=== PATIENT | male | born 1950 | race Caucasian/White ===

== ENCOUNTER 2019-07-11 14:27 | Emergency (ER) | payer MEDICARE, SELFPAY ==
--- NOTE | 2019-07-11 14:52 | ED.SKABFB ---
HPI - Skin/Abscess/Foreign Bdy General Chief complaint: Skin/Abscess/Foreign Body Stated complaint: Body Rash Time Seen by Provider: 07/11/19 15:04 Source: patient and RN notes reviewed Mode of arrival: ambulatory Limitations: no limitations History of Present Illness HPI narrative: 69-year-old male presents with concern for rash. He reports 3-week history of rash on his bilateral lower arms and shoulder area. Reports that the rash has worsened and is very itchy and stinging. He reports using an [id number] cream recommended by a pharmacist, which caused his rash to burn. He denies difficulty swallowing, breathing. Denies any known precipitating factors. Denies any history of similar rashes MD complaint: rash Related Data Allergies Allergy/AdvReac Type Severity Reaction Status Date / Time No Known Allergies Allergy Verified 07/11/19 14:56 Review of Systems Review of Systems: Narrative: CONSTITUTIONAL: Denies malaise, chills, sweats, or fever. ENT: Denies sore throat, drooling, swollen tongue, swollen lips. CARDIOVASCULAR: Denies chest pain, palpitations RESPIRATORY: Denies dyspnea. GASTROINTESTINAL: Denies abdominal pain, nausea, vomiting, diarrhea, SKIN: Reports itchy, burning rash on bilateral arms and upper back/shoulders MUSCULOSKELETAL: Denies myalgia. NEUROLOGIC: Denies headache. All systems reviewed & are unremarkable except as noted in HPI and below PMFSH Family History Family History (Updated 08/15/16 @ 23:56 by DOCTOR UNKNOWN) Father Family history of tuberculosis, Onset Age: 80 Patient's father is Sibling Family history of osteoarthritis Family history of chronic obstructive pulmonary disease Mother Patient's mother is Social History Social History Alcohol intake: current Comments At time of signature, agree with nursing past medical, surgical, social and family history. There is no relevant family history pertinent to the presenting complaint Exam Narrative: Exam Narrative: GENERAL: Well-appearing, well-nourished, and in no acute distress. HEAD: Normocephalic EYES: PERRLA, conjunctivae clear ENT: Nares clear, no rhinorrhea or epistaxis. Mucous membranes moist. Oropharynx without edema, erythema or lesions. NECK: Supple. CHEST: No respiratory distress. Clear to auscultation. No bony deformities, no asymmetry. Speaks in full sentences. HEART: Regular rate and rhythm. No murmur heard. Musculoskeletal: Grossly normal range of motion and strength in upper extremities SKIN: Warm, dry. Scaly raised plaque, mild edema, and erythema noted to entire dorsal surface of bilateral lower arms. Patches of erythematous scaly plaque with small scabbed areas noted to upper back/posterior shoulder area NEURO: Alert and oriented x3. PSYCH: Normal mood and affect Course Course Emergency Course: Patient is aware of diagnosis, understands and agrees to treatment plan. Anticipatory guidance given. Patient agrees to follow-up as directed and is aware of reasons to seek care at the emergency department. Portions of this record may have been created with voice recognition software Vital Signs Vital signs: Reviewed. Patient has current diagnosis of hypertension MDM - Skin/Abscess/Foreign Bdy MDM Narrative Medical decision making narrative: Does not appear at this time to be erythema multiforme, bullous, SJS, TEN; no evidence at this time to suggest RMSF, endocarditis or Lyme disease; patient looks well, nontoxic and is tolerating oral intake; no neurologic signs or symptoms; no headache, photophobia or neck pain; afebrile; appropriate for initial outpatient treatment; discussed the importance of follow-up, patient agrees; question, viral exanthema, contact dermatitis, allergic dermatitis, eczema, urticaria. No soft palate or uvula edema, no tongue, lip edema or other mucosal involvement, no respiratory compromise, no stridor, no wheezing, no wheezing, no history of s
[2019-07-11 14:57] VITALS: BP 135/75; PULSE 78; RESP 16; TEMP 36.3; O2SAT 99
== END 2019-07-11 15:17 | disposition home or self-care (01) ==
PROVIDERS: Emergency Provider Nurse Practitioner
DX: R21 Rash and other nonspecific skin eruption (principal)
CPT/HCPCS: 99213; G0463

== ENCOUNTER 2019-10-20 17:07 | Emergency (ER) | payer MEDICARE, SELFPAY ==
[2019-10-20 17:42] VITALS: BP 128/77; PULSE 85; RESP 18; TEMP 36.6; O2SAT 97
--- NOTE | 2019-10-20 18:16 | ED.GENADULT ---
HPI - General Adult General Chief complaint: Skin/Abscess/Foreign Body Stated complaint: rash Time Seen by Provider: 10/20/19 18:17 Source: patient and RN notes reviewed Mode of arrival: ambulatory Limitations: no limitations History of Present Illness HPI narrative: 69-year-old male presents with complaints of diffused raised, red, scaly, itching rash to anterior and posterior trunk, bilateral upper extremities, face, and neck with minor abrasions. Denies new changes in personal hygiene products or laundry detergent. No new foods or medications. No swelling, burning, bleeding, or drainage. Denies fever, chills, headaches, weakness, fatigue, myalgia, facial swelling, or tongue swelling. The patient reports he have not been diagnosed with COVID-19. The patient reports he is not waiting for the results of a COVID-19 lab test. The patient reports he do not have fever, chills, fatigue. The patient reports he do not have a new or worsening cough or shortness of breath. Denies chest pain. The patient reports he do not have any rhinorrhea, congestion, sore throat, nausea, vomiting, abdominal pain, and diarrhea. Tolerating po intake well. Denies recent traveling. Denies concerns for COVID-19 or exposures been home with limited outdoor exposure except for essential household needs, work, and return home. At this time, patient is not suspected of having COVID-19. Some parts of this dictation were generated by voice recognition software and may contain typographical and/or grammatical inaccuracies. Related Data Allergies Allergy/AdvReac Type Severity Reaction Status Date / Time No Known Allergies Allergy Verified 10/20/19 18:08 Review of Systems Review of Systems: Narrative: CONSTITUTIONAL: Denies fever, chills, sweats. EYES: Denies visual changes, redness, discharge. ENT: Denies rhinorrhea, congestion, sore throat, otalgia. CARDIOVASCULAR: Denies chest pain, palpitations, edema. RESPIRATORY: Denies dyspnea, wheezing, cough. GASTROINTESTINAL: Denies abdominal pain, nausea, vomiting, diarrhea. GENITOURINARY: Denies dysuria, hematuria, abnormal discharge. SKIN: Complains of diffused raised, red, scaly, itching rash to anterior and posterior trunk, bilateral upper extremities, face, and neck with minor abrasions. Denies drainage. MUSCULOSKELETAL: Denies acute back pain, joint pain, or myalgia. NEUROLOGIC: Denies numbness or focal weakness. PSYCHIATRIC: Denies anxiety or depression. All other systems reviewed & are unremarkable except as noted in HPI and below. FOR[facility]LY [facility] Past Medical History Medical History (Updated 10/21/19 @ 00:00 by Lavern Dumont) Hernia Hyperthyroidism Surgical History Surgical History (Updated 10/20/19 @ 18:31 by DENA Barlow) History of hernia surgery Family History Family History Father Family history of tuberculosis, Onset Age: 80 Patient's father is Sibling Family history of osteoarthritis Family history of chronic obstructive pulmonary disease Mother Patient's mother is Social History Social History (Updated 10/20/19 @ 18:32 by DENA Barlow) Smoking packs per day: 1 Smoking cigarettes per day: 20.0 Years smoked: 56 Smoking pack-years: 56.00 Smoking status: Current every day smoker Alcohol intake: current Substance use: never Living arrangements: with family Occupation/Education: retired Gender identity (if verbalized by the patient): Male Comments At time of signature, agree with nurse past medical, surgical, social, and family history. There is no relevant family history pertinent to the presenting complaint. Exam Narrative: Exam Narrative: GENERAL: This is a well-nourished, well-developed patient, in no apparent distress. Talking in full sentences without deficit and ambulate with steady gait without dyspnea. HEAD: normocephalic, atrau
== END 2019-10-20 18:40 | disposition home or self-care (01) ==
PROVIDERS: Emergency Provider Nurse Practitioner Family
DX: L20.9 Atopic dermatitis, unspecified (principal); E78.5 Hyperlipidemia, unspecified; F17.210 Nicotine dependence, cigarettes, uncomplicated
CPT/HCPCS: 99213; G0463

== ENCOUNTER 2019-11-10 13:54 | Emergency (ER) | payer MEDICARE, SELFPAY ==
[2019-11-10 14:11] VITALS: BP 95/67; PULSE 117; RESP 20; TEMP 38.5; O2SAT 98
--- NOTE | 2019-11-10 14:31 | ED.URI ---
HPI - URI/Sore Throat General Chief Complaint: Upper Respiratory Infection Stated Complaint: upper respiratory infection Time Seen by Provider: 11/10/19 14:31 Source: patient Mode of arrival: ambulatory Limitations: no limitations History of Present Illness HPI Narrative: Lenny Lopez is a 69 yo old PMH of hypothyroid who comes to express care with fever, abdominal pain and erythema and urinary hesitancy. In triage respiration are 30, fever 101.3. Also exhibits shortness of breath. illness started yesterday Patient has not seen a physician in a year last time was seen at the [facility] Related Data Home Medications Medication Instructions Recorded Confirmed No Home Medications 11/10/19 11/10/19 Allergies Allergy/AdvReac Type Severity Reaction Status Date / Time No Known Allergies Allergy Verified 10/20/19 18:08 Review of Systems Review of Systems: Narrative: CONSTITUTIONAL: Denies fever, chills, sweats. EYES: Denies visual changes, redness, discharge. ENT: Denies rhinorrhea, congestion, sore throat, otalgia. CARDIOVASCULAR: Denies chest pain, palpitations, edema. RESPIRATORY: Has dyspnea, no wheezing, has cough GASTROINTESTINAL: Has abdominal pain, nausea, vomiting, diarrhea. GENITOURINARY: Denies dysuria, hematuria, abnormal discharge complaining of urinary hesitancy SKIN: Denies rash or itching. NEUROLOGIC: Denies numbness, or focal weakness. PSYCHIATRIC: Denies anxiety or depression. PMFSH Family History Family History Father Family history of tuberculosis, Onset Age: 80 Patient's father is Sibling Family history of osteoarthritis Family history of chronic obstructive pulmonary disease Mother Patient's mother is Social History Social History Smoking packs per day: 1 Smoking cigarettes per day: 20.0 Years smoked: 56 Smoking pack-years: 56.00 Smoking status: Current every day smoker Alcohol intake: current Substance use: never Gender identity (if verbalized by the patient): Male Exam Narrative: Exam Narrative: GENERAL: This is a well-nourished, well-developed patient, in moderate distress. Patient's color is poor HEAD: normocephalic, atraumatic. EYES: Sclera clear/white. Vision is grossly intact. EARS: External ears normal, Hearing grossly intact. NOSE: External nose normal without nasal discharge, nares without redness, no rhinorrhea. THROAT: Mucous membranes moist, posterior pharynx erythema, no exudate NECK: Neck supple, non-tender CARDIOVASCULAR: Tachycardic rate and rhythm without murmurs, gallops, or rubs. RESPIRATORY: Diminished to auscultation. Rapid rate of 30 -breath/minute. sounds equal bilaterally. No wheezes, rales, or rhonchi. GASTROINTESTINAL: Abdomen tense with mild diffuse tenderness SKIN: warm, intact with no suspicious lesions or rash, good texture and turgor. NEURO: awake, alert, and oriented to person, place and time. There were no obvious focal neurologic abnormalities. Steady gait EXTREMITIES: Normal range of motion. BACK: Nontender without deformity Course Course Emergency Course: Patient's urine shows only trace leukocytes and protein-unable to check lab work or due bladder scan; due to fever, decreased blood pressure, abdominal pain the respiratory patient needs to be assessed in the emergency room, patient transfer. Call to ER provider regarding patient condition. Patient given Tylenol prior to leaving. NPO. otherwise Vital Signs Vital signs: Vital Signs Temperature 101.3 F H 11/10/19 14:11 Pulse Rate 117 H 11/10/19 14:11 Respiratory Rate 11/10/19 14:11 Blood Pressure 95/67 L 11/10/19 14:11 Pulse Oximetry 98 11/10/19 14:11 Temperature 101.3 F H 11/10/19 14:55 Pulse Rate 117 H 11/10/19 14:11 Respiratory Rate 20 11/10/19 14:11 Blood Pressure 95/67 L 11/10/19 14:11 Pulse Ox
[2019-11-10 14:55] VITALS: TEMP 38.5
[2019-11-10] MEDS: ACETAMINOPHEN 325 MG TABLET 650 MG PO (14:55)
== END 2019-11-10 14:59 | disposition short-term general hospital (02) ==
PROVIDERS: Emergency Provider Nurse Practitioner
DX: R06.82 Tachypnea, not elsewhere classified (principal); R50.81 Fever presenting with conditions classified elsewhere; F17.210 Nicotine dependence, cigarettes, uncomplicated; E03.9 Hypothyroidism, unspecified
CPT/HCPCS: 81003; 87081; 87880; 99213; A9270; G0463

== ENCOUNTER 2019-11-10 15:41 | Inpatient (IN) | payer MEDICARE, OTHER, SELFPAY ==
[2019-11-10] VITALS (9 sets, daily range): BP systolic 98–125; BP diastolic 64–78; PULSE 83–109; RESP 18–24; TEMP 36.6–36.9; O2SAT 96–100; BMI 25.4
--- NOTE | ~2019-11-10 | CT_ITS ---
EXAMINATION: CT abdomen pelvis w con INDICATION: Lower abdominal pain and fever TECHNIQUE: Computed tomographic images of the abdomen and pelvis were obtained after the administrati on of 100 cc of Omnipaque 350 intravenous contrast. The dose-length product (DLP) was 405.47 mGy-cm. Automated exposure control and iterative reconstruction technique were employed. COMPARISON: None available FINDINGS: There is atelectasis of the visualized lower lobes. The heart size is normal. Subendocardia l fat deposition in the interventricular septum and left ventricular apex is consistent with prior my ocardial infarction. The liver, spleen, pancreas, gallbladder, and adrenal glands are normal. The kid neys are unremarkable. There is calcified atherosclerosis of the aorta and many of the other arteries . No pathologically enlarged abdominal or pelvic lymph nodes are identified. There is wall thickening in the mid sigmoid colon with edematous stranding of the adjacent perisigmoid fat. Tiny foci of danilo cent extraluminal gas are also seen. There is an approximately 1.6 x 0.9 cm perisigmoid fluid collect ion without rim enhancement. There is moderate lumbar spondylosis. IMPRESSION: 1. Perforated sigmoid diverticulitis. Reviewed, dictated and finalized at location A.
--- NOTE | ~2019-11-10 | XR_ITS ---
EXAMINATION: XR chest 1V portable INDICATION: Shortness of breath, fever and cough TECHNIQUE: Portable AP chest at 1723 hours COMPARISON: None available FINDINGS: There is mild atelectasis of the lung bases. No pleural effusion or pneumothorax is identif ied. The cardiomediastinal silhouette is normal. IMPRESSION: 1. Mild atelectasis of the lung bases. Reviewed, dictated and finalized at location A.
--- NOTE | 2019-11-10 16:00 | ECG_ITS ---
Measurements Intervals [place] Rate: 106 P: 24 W[place]: 149 QRS: 21 QRSD: 102 T: 32 QT: 316 QTc: 421 Interpretive Statements SINUS TACHYCARDIA VENTRICULAR PREMATURE COMPLEX DELAYED PRECORDIAL R/S TRANSITION MINIMAL Q WAVES- INFERIOR LEADS BORDERLINE T WAVE ABNORMALITY- INF/LAT LEADS BASELINE WANDER- AVL, AVF, V6 ABNORMAL ECG Electronically Signed On 11-10-2019 16:17:39 CDT by Andres Campos D.O.
--- NOTE | 2019-11-10 17:10 | ED.SOB ---
HPI - SOB/Dyspnea General Chief Complaint: Shortness of Breath/Dyspnea Stated Complaint: fever, sob Time Seen by Provider: 11/10/19 17:00 History of Present Illness HPI Narrative: Patient presents with a family friend for fever cough and shortness of breath. Was at the urgent care and sent here. There he had a negative strep and a positive UA. All started this morning when he got up. Coughing up green phlegm. Temperature 101.3 at the urgent care. Also has lower abdominal pain 5 or 6 out of 10. Has no pain with urination, no constipation or diarrhea. He smokes cigarettes, drinks alcohol, does not do marijuana. 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 Related Data Home Medications Medication Instructions Recorded Confirmed loratadine mg 11/10/19 prednisone 11/10/19 Allergies Allergy/AdvReac Type Severity Reaction Status Date / Time No Known Allergies Allergy Verified 11/10/19 18:18 Review of Systems Review of Systems: Narrative: CONSTITUTIONAL: Denies fever, chills, or sweats. EYES: Denies visual changes, redness, or discharge. ENT: Denies rhinorrhea, congestion, sore throat, or otalgia. CARDIOVASCULAR: Denies chest pain, palpitations, or edema. RESPIRATORY: He has cough and dyspnea with sputum. GASTROINTESTINAL: He has abdominal pain, but not nausea, vomiting, or diarrhea. GENITOURINARY: Denies dysuria or hematuria. SKIN: Denies rash or itching. MUSCULOSKELETAL: Denies back pain, joint pain, or myalgia. NEUROLOGIC: Denies headache, numbness, or weakness. PSYCHIATRIC: Denies anxiety or depression. PMFSH Surgical History Surgical History History of hernia surgery Social History Social History Smoking packs per day: 1 Smoking cigarettes per day: 20.0 Years smoked: 56 Smoking pack-years: 56.00 Smoking status: Current every day smoker Alcohol intake: current Substance use: never Gender identity (if verbalized by the patient): Male Exam Narrative: Exam Narrative: GENERAL: Well-appearing, well-nourished, and in no acute distress. Hair unkempt. Quite pleasant. HEAD: Normocephalic, atraumatic. EYES: PERRLA and EOMI. ENT: Nares clear, no rhinorrhea or epistaxis. Mucous membranes moist. NECK: Supple. CHEST: Clear to auscultation. No respiratory distress. HEART: Regular rate and rhythm. No murmur heard. Normal peripheral pulses. ABDOMEN: Soft, nontender, nondistended, normal active bowel sounds. EXTREMITIES: Normal range of motion. No edema. SKIN: Warm, dry, no rash. NEURO: No focal deficits. Alert and oriented x3. PSYCH: Normal mood and affect. Course Reevaluation(s) Reevaluation #1: Went in to tell the patient and his friend about the ruptured diverticuli. He did not understand that he should stay in the hospital and that he cannot eat. Awaiting the surgeons call back. Date: 11/10/19 Time: 19:22 Consultations Consultation #1: Calling Dr. Ellison for a general surgery consult on the ruptured diverticuli. Date: 11/10/19 Time: 19:04 Vital Signs Vital signs: Vital Signs Temperature 98.5 F 11/10/19 15:54 Pulse Rate 109 H 11/10/19 15:54 Respiratory Rate 21 H 11/10/19 15:54 Blood Pressure 106/64 11/10/19 15:54 Pulse Oximetry 99 11/10/19 15:54 Temperature 98.5 F 11/10/19 15:54 Pulse Rate 83 11/10/19 19:00 Respiratory Rate 18 11/10/19 19:00 Blood Pressure 110/69 11/10/19 19:00 Pulse Oximetry 100 11/10/19 19:00 MDM - SOB/Dyspnea Medical Records Attestation: I reviewed the patient's medical records. Lab Data Attestation: I reviewed the patient's lab results. Result diagrams: 11/10/19 17:15 11/10/19 17:15 Labs: Lab Results 11/10/19 11/10/19 11/10/19 Range/Units 17:15 17:15 17:15 WBC (4.5-10.0) K/mm3 RBC (4.6-6.20) M/mm3 Hgb (14.0-18.0) g/dL Hct (42.0-52.0) % MCV (80-100) fl MCH (26-34
[2019-11-10 17:28] LABS: Basophils Absolute Auto 0.1 K/mm3 (0.0-0.1); Basophils Percent Auto 0.3 % (0.2-1.2); Eosinophils Percent Auto 0.2 % (0-4.4); Hematocrit 46.1 % (42.0-52.0); Hemoglobin 15.5 g/dL (14.0-18.0); Immature Granulocyte Percent A 1.3 % (0-0.5); Lymphocytes Absolute Auto 1.78 K/mm3 (0.9-3.2); Lymphocytes Percent Auto 7.8 % (18.3-44.2); Mean Corpuscular HGB Conc 33.6 g/dl (32-36); Mean Corpuscular Hemoglobin 32.3 pg (26-34); Mean Platelet Volume 9.9 fl (7.4-10.4); Monocytes Absolute Auto 1.1 K/mm3 (0.1-0.6); Monocytes Percent Auto 4.9 % (2.6-8.5); Neutrophils Absolute Auto 19.5 K/mm3 (1.3-6.7); Neutrophils Percent Auto 85.5 % (45.5-73.1); Platelet Count Result 187 k/mm3 (150-375); Red Cell Distribution Width 13.2 % (11.5-14.5); White Blood Count 22.8 K/mm3 (4.5-10.0)
[2019-11-10 17:40] LABS: D Dimer 1.19 ug/mL (<0.48); Ethanol < 10 mg/dL (<10)
[2019-11-10 17:41] LABS: Alanine Aminotransferase 18 U/L (4-50); Albumin Level 3.9 g/dL (3.5-5.1); Alkaline Phosphatase 73 U/L (38-126); Aspartate Amino Transferase 22 U/L (17-59); Bilirubin,Total 1.9 mg/dL (0.2-1.3); Blood Urea Nitrogen 16 mg/dL (9-20); Carbon Dioxide 26 mmol/L (22-30); Chloride 94 mmol/L (98-107); Estimated CRCL calculation 44 ml/min; Estimated Glomerular Filt Rate 54; Glucose 100 mg/dL (75-110); Potassium 3.6 mmol/L (3.4-5.0); Sodium 130 mmol/L (137-145)
[2019-11-10 17:46] LABS: Lactic Acid 0.8 mmol/L (0.7-2.1)
[2019-11-10 17:51] LABS: NT Pro B Type Natriuretic Pept 768 PG/ML (5-100)
[2019-11-10 17:53] LABS: Troponin I < 0.012 ng/mL (0.000-0.034)
[2019-11-10] MEDS: SODIUM CHLORIDE 0.9% IV 1,000 ML 999 ML IV CONT (18:00)
[2019-11-10 19:17] LABS: Add Urine Microscopic? YES; Appearance Urine Clear (Clear); Bilirubin Urine Negative (Negative); Blood Urine 2+ (Negative); Color Urine Yellow (Yellow); Glucose Urine UA Negative (Negative); Ketones Urine Negative (Negative); Leukocyte Esterase Ur Negative LEU/UL (Negative); Nitrate Urine Negative (Negative); Protein Urine Negative (Negative); RBC Urine 0-2 /hpf (0-2); Specific Grav Ur 1.013 (1.001-1.035); Urobilinogen Urine Negative mg/dL (<2.0); WBC Urine 0-3 /hpf
--- NOTE | 2019-11-10 21:48 | ADMGEN ---
This patient, Lenny Lopez, was admitted to [facility] Surg Room 328-01. Patient/family oriented to hospital policies and general routines including ID bracelet, bed and alarms, visiting hours, pain management, procedures, bathroom and other care routines, personal items, smoking policy, room service/diet, and visiting hours. Valuables list has been completed. Information on how to activate the Rapid Response Team has been discussed. Patient/Family are encouraged to report perceived risks to care and to ask questions if they do not understand what they are told or what they should do.
[2019-11-10] MEDS: DEXTROSE 5%/0.9% SOD CHL 1,000 ML 100 ML IV CONT (21:55)
--- NOTE | 2019-11-10 22:28 | PM.IMHP ---
H&P: HPI History of Present Illness Chief complaint: perforated sigmoid diverticulitis and fever and Narrative: This is a pleasant 69 year old male with known hyperthyroidism who presented to the hospital with a complaint of diffuse lower abdominal pain since yesterday. Associated symptoms include fever and sporadic cough of greenish phlegm. The patient was referred to the hospital from urgent care. His last meal was yesterday. The patient was found to have a perforated diverticulitis on CT abd/pelvis in the ER tonight. He has no previous history of diverticular disease and his last colonoscopy was over 20 years ago. He denies any bloody diarrhea and his last bowel movement was this evening. Currently he continues to have moderate lower abd pain. Routine labs demonstrated a WBC of 22,800. The patient was febrile in the ER tonight and was swabbed for COVID-19. General Surgery has been consulted by ER provider. He denies any other symptoms at this time. Review of Systems Review of Systems: All systems reviewed & are unremarkable except as noted in HPI and below PMFSH Past Medical History Medical History Hernia Hyperthyroidism Smoking Surgical History Surgical History History of hernia surgery Family History Family History Father Family history of tuberculosis, Onset Age: 80 Patient's father is Sibling Family history of osteoarthritis Family history of chronic obstructive pulmonary disease Mother Patient's mother is Social History Social History Smoking packs per day: 0.5 Smoking cigarettes per day: 10.0 Years smoked: 56 Smoking pack-years: 28.00 Smoking status: Current every day smoker Tobacco type: cigarettes Alcohol intake: current Substance use: never Gender identity (if verbalized by the patient): Male Meds Home Medications and Allergies Allergies Allergy/AdvReac Type Severity Reaction Status Date / Time No Known Allergies Allergy Verified 11/10/19 18:18 Vital Signs Vital Signs - 24 hr 11/10/19 15:54 11/10/19 16:30 11/10/19 17:00 Temperature 36.9 C Pulse Rate 109 H 100 96 Respiratory Rate 21 H 18 22 H Blood Pressure 106/64 103/67 103/71 Pulse Oximetry 99 97 96 11/10/19 18:00 11/10/19 19:00 11/10/19 20:08 Temperature Pulse Rate 95 83 86 Respiratory Rate 22 H 18 Blood Pressure 98/69 L 110/69 Pulse Oximetry 97 100 11/10/19 20:09 11/10/19 20:48 Temperature Pulse Rate 85 84 Respiratory Rate 24 H 24 H Blood Pressure 110/69 116/73 Pulse Oximetry 98 100 Exam Const: General: cooperative, alert, awake, in distress moderate and other (unkept) Nutritional Appearance: well nourished Orientation/consciousness: patient oriented x3 HENMT: Head: normal to inspection General nose exam: Normal external nose present Face and sinus: normal facial exam Mouth: Yes Normal oral and palatal mucosa present and Yes oropharynx normal Eyes: Pupils: Equal, round and reactive pupils present EOM: EOMs intact bilaterally Neck: Neck: supple and no JVD Thyroid: thyroid normal Lymphatic: lymphadenopathy not noted Resp: Effort & Inspection: normal respiratory effort Auscultation: clear to auscultation bilaterally Cardio: Rate: regular rate Rhythm: regular rhythm Heart sounds: no murmurs GI: Inspection: distended GI Palp: Yes abdominal tenderness (Lower abd b/l +++ ) Auscultation: Hypoactive bowel sounds present Rectal Exam: deferred Skin: General skin exam: normal color and no rashes or lesions noted Neuro: General: patient oriented x3 Cranial nerves: Yes CN's II-XII intact bilaterally and Yes Equal, round and reactive pupils present Speech: normal speech Motor exam (neuro): 5/5 motor strength present throughout Sensory Exam: normal sensation Extrem:
[2019-11-11] MEDS: MORPHINE SULFATE 4 MG/ML INJ IV PUSH ×2 (01:41→12:14)
[2019-11-11 02:00] VITALS: BP 137/68; PULSE 96; RESP 20; TEMP 37.3; O2SAT 100
[2019-11-11 06:00] VITALS: BP 108/58; PULSE 91; RESP 20; TEMP 37.1; O2SAT 97
--- NOTE | 2019-11-11 06:57 | PC.NURSE ---
Consult ordered. Doctor lori arias contacted. Awaiting call back to confirm Doctor has received consult.
[2019-11-11 07:07] LABS: Basophils Percent Auto 0.2 % (0.2-1.2); Eosinophils Absolute Auto 0.1 K/mm3 (0-0.3); Eosinophils Percent Auto 0.5 % (0-4.4); Hematocrit 41.8 % (42.0-52.0); Hemoglobin 14.1 g/dL (14.0-18.0); Immature Granulocyte Absolute 0.21 K/mm3 (0.00-0.031); Immature Granulocyte Percent A 1.1 % (0-0.5); Lymphocytes Absolute Auto 1.58 K/mm3 (0.9-3.2); Lymphocytes Percent Auto 8.5 % (18.3-44.2); Mean Corpuscular HGB Conc 33.7 g/dl (32-36); Mean Corpuscular Hemoglobin 32.5 pg (26-34); Mean Corpuscular Volume 96.3 fl (80-100); Mean Platelet Volume 9.6 fl (7.4-10.4); Monocytes Absolute Auto 0.8 K/mm3 (0.1-0.6); Monocytes Percent Auto 4.3 % (2.6-8.5); Neutrophils Absolute Auto 15.8 K/mm3 (1.3-6.7); Neutrophils Percent Auto 85.4 % (45.5-73.1); Platelet Count Result 154 k/mm3 (150-375); Red Blood Count 4.34 M/mm3 (4.6-6.20); White Blood Count 18.5 K/mm3 (4.5-10.0)
[2019-11-11 07:20] LABS: Lactic Acid Reflex 0.8 mmol/L (0.7-2.1)
[2019-11-11 07:22] LABS: Blood Urea Nitrogen 11 mg/dL (9-20); Calcium 7.3 mg/dL (8.4-10.2); Carbon Dioxide 25 mmol/L (22-30); Chloride 101 mmol/L (98-107); Estimated CRCL calculation 51 ml/min; Estimated Glomerular Filt Rate > 60; Glucose 102 mg/dL (75-110); Potassium 3.8 mmol/L (3.4-5.0); Sodium 130 mmol/L (137-145)
[2019-11-11 08:00] VITALS: PULSE 91; RESP 20; O2SAT 97
[2019-11-11] MEDS: DEXTROSE 5%/0.9% SOD CHL 1,000 ML 100 ML IV CONT ×2 (08:07→16:35)
--- NOTE | 2019-11-11 09:00 | PM.CNGS ---
Assessment and Plan Assessment and plan (1) Diverticulitis of intestine with perforation without abscess: Code(s): K57.80 - Diverticulitis of intestine, part unspecified, with perforation and abscess without bleeding Status: Acute Assessment and Plan: Long discussion with patient regarding complicated diverticulitis with micro perforation, continue conservative management with IV antibiotics at this time and serial exams, if worsens did discuss possibility of surgical intervention with likely Verónica's procedure, will start clears (2) Sepsis: Qualifiers: Sepsis type: sepsis due to unspecified organism Sepsis acute organ dysfunction status: unspecified Qualified Code(s): A41.9 - Sepsis, unspecified organism Code(s): A41.9 - Sepsis, unspecified organism Status: Acute Assessment and Plan: likely secondary to above, continue IV antibiotics (3) Suspected COVID-19 virus infection: Code(s): Z20.828 - Contact with and (suspected) exposure to other viral communicable diseases Status: Acute Assessment and Plan: serology pending, continue supportive care (4) Tobacco dependence: Code(s): F17.200 - Nicotine dependence, unspecified, uncomplicated Status: Chronic Assessment and Plan: nicotine patch History of Present Illness Consult details Consult date: 11/11/19 Reason for consult: abdominal pain Requesting physician: Andrew Tran MD Narrative: Patient is a 69-year-old male that presented to the emergency department complaining of lower abdominal pain times 1-2 days. The patient reports he has been having fevers as well as cough with green sputum over this same time span. The patient was actually seen in urgent care and referred to the emergency department from there. The patient reports that he has been having loose bowel movements and has been tolerating a diet. The patient reports that his appetite is somewhat decreased. The patient reports last colonoscopy was about 20 years ago and reported as normal. Review of Systems Constitutional: Constitutional: Reports chills, Reports fatigue, Reports lethargy and Reports weakness Eyes: Eyes: Reports no additional eye complaints ENT: Reports Normal hearing present Cardiovascular: Cardiovascular: Denies chest pain and Denies palpitations Respiratory: Respiratory: Reports cough, Denies hemoptysis and Denies dyspnea Gastrointestinal: Gastrointestinal: Reports abdominal pain, Reports bloating, Denies constipation, Reports diarrhea, Reports nausea, Denies vomiting and Denies hematemesis Genitourinary: Genitourinary: Denies dysuria Musculoskeletal: Musculoskeletal: Reports no additional musculoskeletal complaints Integumentary/Breasts: Skin/Breast: Reports system reviewed and no additional complaints, except as docu Neurologic: Reports system reviewed and no additional complaints, except as documented Psychiatric: Psychiatric: Reports no additional psychiatric complaints PMFSH Past Medical History Medical History Hernia Hyperthyroidism Smoking Surgical History Surgical History History of hernia surgery Family History Family History Father Family history of tuberculosis, Onset Age: 80 Patient's father is Sibling Family history of osteoarthritis Family history of chronic obstructive pulmonary disease Mother Patient's mother is Social History Social History Smoking packs per day: 0.5 Smoking cigarettes per day: 10.0 Years smoked: 56 Smoking pack-years: 28.00 Smoking status: Current every day smoker Tobacco type: cigarettes Alcohol intake: current Substance use: never Gender identity (if verbalized by the patient): Male Meds Home Medications and Allergie
[2019-11-11 10:00] VITALS: BP 126/62; PULSE 89; RESP 18; TEMP 36.8; O2SAT 97
[2019-11-11 13:33] LABS: SARS-CoV-2 RNA PCR Negative
[2019-11-11 14:00] VITALS: BP 118/74; PULSE 90; RESP 18; TEMP 36.5; O2SAT 97
--- NOTE | 2019-11-11 16:22 | PM.IMPN ---
Progress Note: A&P Assessment and Plan (1) Perforation of sigmoid colon due to diverticulitis: Code(s): K57.20 - Diverticulitis of large intestine with perforation and abscess without bleeding Status: Acute Assessment and Plan: Continue IV antibiotics. IV fluids Analgesia. General Surgery has been consulted by ER provider and will manage the patient's perforated colon. (2) Sepsis: Qualifiers: Sepsis type: sepsis due to unspecified organism Sepsis acute organ dysfunction status: unspecified Qualified Code(s): A41.9 - Sepsis, unspecified organism Code(s): A41.9 - Sepsis, unspecified organism Status: Acute Assessment and Plan: w/ fever and leukocytosis. w/ perforated diverticulitis. (3) Leukocytosis: Qualifiers: Leukocytosis type: unspecified Qualified Code(s): D72.829 - Elevated white blood cell count, unspecified Code(s): D72.829 - Elevated white blood cell count, unspecified Status: Acute Assessment and Plan: Secondary to diverticulitis. Monitor CBCd. (4) Suspected COVID-19 virus infection: Code(s): Z20.828 - Contact with and (suspected) exposure to other viral communicable diseases Status: Acute Assessment and Plan: COVID is negative (5) Hyperthyroidism: Code(s): E05.90 - Thyrotoxicosis, unspecified without thyrotoxic crisis or storm Status: Chronic Assessment and Plan: Resume home medications when possible. (6) Tobacco dependence: Code(s): F17.200 - Nicotine dependence, unspecified, uncomplicated Status: Chronic Assessment and Plan: Counselling completed in hospital Subjective Date/time seen: 11/11/19 16:22 Interval history: 69 year old male with known hyperthyroidism who presented to the hospital with a complaint of diffuse lower abdominal pain since yesterday. Found to be COVID negative. Pt admitted with perforated diverticulitis on CT abd/pelvis, WCC is high, BC pending, Pt started on iv zosyn. Pt seen by surgeon continue iv ABX theraphy for now Review of Systems Gastrointestinal: Gastrointestinal: Reports abdominal pain Exam Const: General: cooperative and healthy appearing; No in distress Nutritional Appearance: overweight Orientation/consciousness: oriented to person HENMT: Head: normal to inspection Resp: Effort & Inspection: no respiratory distress Auscultation: no rhonchi and no wheezes Cardio: Rate: regular rate Rhythm: regular rhythm GI: Inspection: normal to inspection GI Palp: Yes abdominal tenderness and No Hepatomegaly present Auscultation: normal bowel sounds Neuro: General: oriented to person Objective Data Vital Signs Vital Signs: Vital Signs - 24 hr 11/10/19 16:30 11/10/19 17:00 11/10/19 18:00 Temperature Pulse Rate 100 96 95 Respiratory Rate 18 22 H 22 H Blood Pressure 103/67 103/71 98/69 L Pulse Oximetry 97 96 97 11/10/19 19:00 11/10/19 20:08 11/10/19 20:09 Temperature Pulse Rate 83 86 85 Respiratory Rate 18 24 H Blood Pressure 110/69 110/69 Pulse Oximetry 100 98 11/10/19 20:48 11/10/19 21:30 11/11/19 02:00 Temperature 36.6 C 37.3 C Pulse Rate 84 89 96 Respiratory Rate 24 H 18 20 Blood Pressure 116/73 125/78 137/68 Pulse Oximetry 100 100 100 11/11/19 06:00 11/11/19 08:00 11/11/19 10:00 Temperature 37.1 C 36.8 C Pulse Rate 91 91 89 Respiratory Rate 20 20 18 Blood Pressure 108/58 L 126/62 Pulse Oximetry 97 97 97 11/11/19 14:00 Temperature 36.5 C Pulse Rate 90 Respiratory Rate 18 Blood Pressure 118/74 Pulse Oximetry 97 Intake/Output Intake/Output: Intake & Output 11/08/19 11/09/19 11/10/19 11/11/19 23:59 23:59 23:59 23:59 Intake Total 1400 1460 Balance 1400 1460 Meds/Results Medications: Active Medications Generic Name Dose Route Start Last Admin Trade Name Freq PRN Reason Stop Dose Admin Azithromycin 500 mg in 250 mls @ 250 mls/hr 11/11/19 18:00
[2019-11-11 22:00] VITALS: BP 122/63; PULSE 84; RESP 18; TEMP 36.9; O2SAT 97
[2019-11-12 06:00] VITALS: BP 116/66; PULSE 87; RESP 18; TEMP 36.6; O2SAT 95
[2019-11-12] MEDS: DEXTROSE 5%/0.9% SOD CHL 1,000 ML 100 ML IV CONT ×2 (06:42→17:26)
[2019-11-12 09:06] LABS: Hematocrit 39.6 % (42.0-52.0); Hemoglobin 13.5 g/dL (14.0-18.0); Mean Corpuscular HGB Conc 34.1 g/dl (32-36); Mean Corpuscular Hemoglobin 32.8 pg (26-34); Mean Corpuscular Volume 96.1 fl (80-100); Mean Platelet Volume 10.2 fl (7.4-10.4); Platelet Count Result 162 k/mm3 (150-375); Red Blood Count 4.12 M/mm3 (4.6-6.20); Red Cell Distribution Width 12.7 % (11.5-14.5); White Blood Count 11.3 K/mm3 (4.5-10.0)
[2019-11-12 09:18] LABS: Blood Urea Nitrogen 6 mg/dL (9-20); Calcium 7.5 mg/dL (8.4-10.2); Carbon Dioxide 26 mmol/L (22-30); Chloride 102 mmol/L (98-107); Estimated CRCL calculation 51 ml/min; Estimated Glomerular Filt Rate > 60; Glucose 100 mg/dL (75-110); Potassium 3.6 mmol/L (3.4-5.0); Sodium 133 mmol/L (137-145)
[2019-11-12] MEDS: NICOTINE (*PBKC) 14 MG PATCH 1 PATCH TRANSDERM (09:42)
--- NOTE | 2019-11-12 13:11 | P.PNGS_ITS ---
Progress Note: A&P Assessment and Plan (1) Diverticulitis of intestine with perforation without abscess: Code(s): K57.80 - Diverticulitis of intestine, part unspecified, with perforation and abscess without bleeding Status: Acute Assessment and Plan: * advance to full liquids today * Continue Zosyn * Repeat labs in AM Subjective Subjective Date/Time Seen: 11/12/19 13:11 Still having some pain. Hungry. No fevers. Exam GI: GI Palp: Yes Tenderness to palpation present (GI) (lower, LLQ), No Guarding due to palpation present (GI) and No Rebound tenderness present Objective Data Vital Signs Vital Signs: Vital Signs - 24 hr 11/11/19 14:00 11/11/19 22:00 11/12/19 06:00 Temperature 36.5 C 36.9 C 36.6 C Pulse Rate 90 84 87 Respiratory Rate 18 18 18 Blood Pressure 118/74 122/63 116/66 Pulse Oximetry 97 97 95 Intake/Output Intake/Output: Intake & Output 11/09/19 11/10/19 11/11/19 11/12/19 23:59 23:59 23:59 23:59 Intake Total 1400 3710 1083 Output Total 200 Balance 1400 3710 883 Meds/Results Medications: Active Medications Generic Name Dose Route Start Last Admin Trade Name Freq PRN Reason Stop Dose Admin Azithromycin 500 mg in 250 mls @ 250 mls/hr 11/11/19 18:00 11/11/19 20:32 Zithromax IVPB Infused QPM SCOTT Infusion Dextrose/Sodium Chloride 1,000 mls @ 100 mls/hr 11/10/19 19:25 11/12/19 06:42 Dextrose 5% Sodium Chloride 0.9% IV CONT 100 mls/hr .Q10H SCOTT Administration Piperacillin/Tazobactam/Dextrose 3.375 gm in 50 mls @ 100 mls/hr 11/11/19 06:00 11/12/19 13:04 Zosyn 3.375 Gm/D5w 50ml Pm IVPB Infused Q6HR SCOTT Infusion Morphine Sulfate 4 mg 11/10/19 20:01 11/11/19 12:14 Morphine Sulfate Inj IV PUSH 4 mg Q2H PRN Administration Pain Rated 7-10 Nicotine 1 patch 11/12/19 09:00 11/12/19 09:42 Nicoderm Cq 14 Mg TRANSDERM 1 patch QAM SCOTT Administration Radiology Results: ITS Impressions Chest X-Ray 11/10/19 17:33 IMPRESSION: 1. Mild atelectasis of the lung bases. Abdomen/Pelvis CT 11/10/19 18:29 IMPRESSION: 1. Perforated sigmoid diverticulitis. Labs Labs: Laboratory Results - last 24 hr 11/10/19 11/12/19 11/12/19 17:15 08:05 08:05 WBC 11.3 H RBC 4.12 L Hgb 13.5 L Hct 39.6 L MCV 96.1 MCH 32.8 MCHC 34.1 RDW 12.7 Plt Count 162 MPV 10.2 Sodium 133 L Potassium 3.6 Chloride 102 Carbon Dioxide 26 BUN 6 L D Creatinine 1.10 Estim Creat Clear Calc 51 Estimated GFR > 60 Glucose 100 Calcium 7.5 L SARS-CoV-2 RNA (RT-PCR) Negative Quality VTE Prophylaxis VTE prophylaxis: mechanical ordered
[2019-11-12 14:00] VITALS: BP 122/71; PULSE 85; RESP 16; TEMP 37; O2SAT 99
--- NOTE | 2019-11-12 16:35 | PM.IMPN ---
Progress Note: A&P Assessment and Plan (1) Perforation of sigmoid colon due to diverticulitis: Code(s): K57.20 - Diverticulitis of large intestine with perforation and abscess without bleeding Status: Acute Assessment and Plan: Continue IV antibiotics. IV fluids Analgesia. General Surgery has been consulted for perforated diverticulitis (2) Sepsis: Qualifiers: Sepsis type: sepsis due to unspecified organism Sepsis acute organ dysfunction status: unspecified Qualified Code(s): A41.9 - Sepsis, unspecified organism Code(s): A41.9 - Sepsis, unspecified organism Status: Acute Assessment and Plan: w/ fever and leukocytosis. secondary to perforated diverticulitis. (3) Leukocytosis: Qualifiers: Leukocytosis type: unspecified Qualified Code(s): D72.829 - Elevated white blood cell count, unspecified Code(s): D72.829 - Elevated white blood cell count, unspecified Status: Acute Assessment and Plan: Secondary to diverticulitis. Monitor CBCd. (4) Suspected COVID-19 virus infection: Code(s): Z20.828 - Contact with and (suspected) exposure to other viral communicable diseases Status: Acute Assessment and Plan: COVID is negative (5) Hyperthyroidism: Code(s): E05.90 - Thyrotoxicosis, unspecified without thyrotoxic crisis or storm Status: Chronic Assessment and Plan: Resume home medications when possible. (6) Tobacco dependence: Code(s): F17.200 - Nicotine dependence, unspecified, uncomplicated Status: Chronic Assessment and Plan: Counselling completed in hospital Subjective Date/time seen: 11/12/19 16:35 Interval history: 69 year old male with known hyperthyroidism who presented to the hospital with a complaint of diffuse lower abdominal pain since yesterday. Found to be COVID negative. Pt admitted with perforated diverticulitis on CT abd/pelvis, WCC is high, BC pending, Pt started on iv zosyn. Pt seen by surgeon continue iv ABX theraphy for now Review of Systems Review of Systems: All systems reviewed & are unremarkable except as noted in HPI and below Gastrointestinal: Gastrointestinal: Reports other (mild abdominal pains ) Exam Const: General: cooperative, healthy appearing, alert, awake and other (unkept); No in distress Nutritional Appearance: well nourished and overweight Orientation/consciousness: oriented to person and patient oriented x3 Resp: Effort & Inspection: normal respiratory effort and no respiratory distress Auscultation: clear to auscultation bilaterally, no rhonchi and no wheezes Cardio: Rate: regular rate Rhythm: regular rhythm Heart sounds: no murmurs GI: Inspection: normal to inspection and distended Auscultation: normal bowel sounds and Hypoactive bowel sounds present Rectal Exam: deferred Neuro: General: oriented to person and patient oriented x3 Cranial nerves: Yes CN's II-XII intact bilaterally and Yes Equal, round and reactive pupils present Speech: normal speech Motor exam (neuro): 5/5 motor strength present throughout Sensory Exam: normal sensation Extrem: General: normal to inspection and no edema Psych: Mental Status: mental status grossly normal Affect: normal affect Objective Data Vital Signs Vital Signs: Vital Signs - 24 hr 11/11/19 22:00 11/12/19 06:00 11/12/19 14:00 Temperature 36.9 C 36.6 C 37.0 C Pulse Rate 84 87 85 Respiratory Rate 18 18 16 Blood Pressure 122/63 116/66 122/71 Pulse Oximetry 97 95 99 Intake/Output Intake/Output: Intake & Output 11/09/19 11/10/19 11/11/19 11/12/19 23:59 23:59 23:59 23:59 Intake Total 1400 3710 1563 Output Total 200 Balance 1400 3710 1363 Meds/Results Medications: Active Medications Generic Name Dose Route Start Last Admin Trade Name Freq PRN Reason Stop Dose Admin Azithromycin 500 mg in 250 mls @ 250 mls/hr 11/11/19 18:00 11/11/19 20:32 Zithromax IVP
[2019-11-12] MEDS: MORPHINE SULFATE 4 MG/ML INJ IV PUSH (17:21)
[2019-11-12 22:00] VITALS: BP 133/68; PULSE 73; RESP 16; TEMP 36.9; O2SAT 98
[2019-11-13] MEDS: DEXTROSE 5%/0.9% SOD CHL 1,000 ML 100 ML IV CONT ×2 (04:56→17:32)
[2019-11-13] MEDS: MORPHINE SULFATE 4 MG/ML INJ IV PUSH ×2 (05:15→23:21)
[2019-11-13 06:00] VITALS: BP 138/82; PULSE 80; RESP 16; TEMP 36.5; O2SAT 98
[2019-11-13 06:07] LABS: Hematocrit 36.6 % (42.0-52.0); Hemoglobin 12.3 g/dL (14.0-18.0); Mean Corpuscular HGB Conc 33.6 g/dl (32-36); Mean Corpuscular Hemoglobin 32.3 pg (26-34); Mean Corpuscular Volume 96.1 fl (80-100); Mean Platelet Volume 9.9 fl (7.4-10.4); Platelet Count Result 174 k/mm3 (150-375); Red Blood Count 3.81 M/mm3 (4.6-6.20); Red Cell Distribution Width 12.5 % (11.5-14.5); White Blood Count 8.4 K/mm3 (4.5-10.0)
[2019-11-13 06:19] LABS: Blood Urea Nitrogen 3 mg/dL (9-20); Calcium 7.3 mg/dL (8.4-10.2); Carbon Dioxide 23 mmol/L (22-30); Chloride 104 mmol/L (98-107); Estimated CRCL calculation 56 ml/min; Estimated Glomerular Filt Rate > 60; Glucose 95 mg/dL (75-110); Potassium 3.4 mmol/L (3.4-5.0); Sodium 133 mmol/L (137-145)
[2019-11-13] MEDS: NICOTINE (*PBKC) 14 MG PATCH 1 PATCH TRANSDERM (08:02)
[2019-11-13 14:00] VITALS: BP 132/68; PULSE 70; RESP 16; TEMP 36.4; O2SAT 96
--- NOTE | 2019-11-13 15:22 | P.PNGS_ITS ---
Progress Note: A&P Assessment and Plan (1) Diverticulitis of intestine with perforation without abscess: Code(s): K57.80 - Diverticulitis of intestine, part unspecified, with perforation and abscess without bleeding Status: Acute Assessment and Plan: * Continuing to slowly improve * Advance to low fiber diet today * Ok to discharge tomorrow if tolerating diet and WBC remains normal and exam unchanged Subjective Subjective Date/Time Seen: 11/13/19 15:22 Tolerating full liquids. No fevers. Pain improved. Exam GI: Inspection: normal to inspection and non-distended GI Palp: Yes Soft to palpation, Yes Tenderness to palpation present (GI) (minimal LLQ), No Guarding due to palpation present (GI) and No Rebound tenderness present Auscultation: normal bowel sounds Objective Data Vital Signs Vital Signs: Vital Signs - 24 hr 11/12/19 22:00 11/13/19 06:00 11/13/19 14:00 Temperature 36.9 C 36.5 C 36.4 C L Pulse Rate 73 80 70 Respiratory Rate 16 16 16 Blood Pressure 133/68 138/82 132/68 Pulse Oximetry 98 98 96 Intake/Output Intake/Output: Intake & Output 11/10/19 11/11/19 11/12/19 11/13/19 23:59 23:59 23:59 23:59 Intake Total 1400 3710 4013 1900 Output Total 1400 1100 Balance 1400 3710 2613 800 Meds/Results Medications: Active Medications Generic Name Dose Route Start Last Admin Trade Name Freq PRN Reason Stop Dose Admin Hydrocodone Bitart/Acetaminophen 1 tab 11/13/19 15:21 [place] 5-325 Mg PO Q4H PRN Pain Rated 4-6 Azithromycin 500 mg in 250 mls @ 250 mls/hr 11/11/19 18:00 11/12/19 20:23 Zithromax IVPB Infused QPM SCOTT Infusion Dextrose/Sodium Chloride 1,000 mls @ 100 mls/hr 11/10/19 19:25 11/13/19 04:56 Dextrose 5% Sodium Chloride 0.9% IV CONT 100 mls/hr .Q10H SCOTT Administration Piperacillin/Tazobactam/Dextrose 3.375 gm in 50 mls @ 100 mls/hr 11/11/19 06:00 11/13/19 12:14 Zosyn 3.375 Gm/D5w 50ml Pm IVPB 100 mls/hr Q6HR SCOTT Administration Morphine Sulfate 4 mg 11/10/19 20:01 11/13/19 05:15 Morphine Sulfate Inj IV PUSH 4 mg Q2H PRN Administration Pain Rated 7-10 Nicotine 1 patch 11/12/19 09:00 11/13/19 08:02 Nicoderm Cq 14 Mg TRANSDERM 1 patch QAM SCOTT Administration Radiology Results: ITS Impressions Chest X-Ray 11/10/19 17:33 IMPRESSION: 1. Mild atelectasis of the lung bases. Abdomen/Pelvis CT 11/10/19 18:29 IMPRESSION: 1. Perforated sigmoid diverticulitis. Labs Labs: Laboratory Results - last 24 hr 11/13/19 11/13/19 05:49 05:49 WBC 8.4 RBC 3.81 L Hgb 12.3 L Hct 36.6 L MCV 96.1 MCH 32.3 MCHC 33.6 RDW 12.5 Plt Count 174 MPV 9.9 Sodium 133 L Potassium 3.4 Chloride 104 Carbon Dioxide 23 BUN 3 L Creatinine 1.00 Estim Creat Clear Calc 56 Estimated GFR > 60 Glucose 95 Calcium 7.3 L Quality VTE Prophylaxis VTE prophylaxis: mechanical ordered
--- NOTE | 2019-11-13 17:12 | PM.IMPN ---
Progress Note: A&P Assessment and Plan (1) Perforation of sigmoid colon due to diverticulitis: Code(s): K57.20 - Diverticulitis of large intestine with perforation and abscess without bleeding Status: Acute Assessment and Plan: Continue IV antibiotics. IV fluids Analgesia. General Surgery has been consulted for perforated diverticulitis (2) Sepsis: Qualifiers: Sepsis acute organ dysfunction status: unspecified Sepsis type: sepsis due to unspecified organism Qualified Code(s): A41.9 - Sepsis, unspecified organism Code(s): A41.9 - Sepsis, unspecified organism Status: Acute Assessment and Plan: w/ fever and leukocytosis. secondary to perforated diverticulitis.possible dscharge amparo as pt is improving abdominal pain is minimal (3) Leukocytosis: Qualifiers: Leukocytosis type: unspecified Qualified Code(s): D72.829 - Elevated white blood cell count, unspecified Code(s): D72.829 - Elevated white blood cell count, unspecified Status: Resolved Assessment and Plan: Secondary to diverticulitis. (4) Suspected COVID-19 virus infection: Code(s): Z20.828 - Contact with and (suspected) exposure to other viral communicable diseases Status: Acute Assessment and Plan: COVID is negative (5) Hyperthyroidism: Code(s): E05.90 - Thyrotoxicosis, unspecified without thyrotoxic crisis or storm Status: Chronic Assessment and Plan: Resume home medications when possible. (6) Tobacco dependence: Code(s): F17.200 - Nicotine dependence, unspecified, uncomplicated Status: Chronic Assessment and Plan: Counselling completed in hospital Subjective Date/time seen: 11/13/19 17:12 Interval history: 69 year old male with known hyperthyroidism who presented to the hospital with a complaint of diffuse lower abdominal pain since yesterday. Found to be COVID negative. Pt admitted with perforated diverticulitis on CT abd/pelvis, WCC is NL, Bc negative so far, Pt started on iv zosyn. Pt seen by surgeon,tolerating diet, hopeful discharge tomorrow. Watch Bp overnite Review of Systems Review of Systems: All systems reviewed & are unremarkable except as noted in HPI and below Gastrointestinal: Gastrointestinal: Reports other (mild abdominal pains ) Exam Const: General: cooperative, healthy appearing, alert, awake and other (unkept); No in distress Nutritional Appearance: well nourished and overweight Orientation/consciousness: oriented to person and patient oriented x3 Cardio: Rate: regular rate Rhythm: regular rhythm Heart sounds: no murmurs GI: Inspection: normal to inspection Auscultation: normal bowel sounds Skin: General skin exam: normal color and no rashes or lesions noted Neuro: General: oriented to person and patient oriented x3 Cranial nerves: Yes CN's II-XII intact bilaterally and Yes Equal, round and reactive pupils present Speech: normal speech Motor exam (neuro): 5/5 motor strength present throughout Sensory Exam: normal sensation Extrem: General: normal to inspection and no edema Psych: Mental Status: mental status grossly normal Affect: normal affect Objective Data Vital Signs Vital Signs: Vital Signs - 24 hr 11/12/19 22:00 11/13/19 06:00 11/13/19 14:00 Temperature 36.9 C 36.5 C 36.4 C L Pulse Rate 73 80 70 Respiratory Rate 16 16 16 Blood Pressure 133/68 138/82 132/68 Pulse Oximetry 98 98 96 Intake/Output Intake/Output: Intake & Output 11/10/19 11/11/19 11/12/19 11/13/19 23:59 23:59 23:59 23:59 Intake Total 1400 3710 4013 1900 Output Total 1400 1100 Balance 1400 3710 2613 800 Meds/Results Medications: Active Medications Generic Name Dose Route Start Last Admin Trade Name Freq PRN Reason Stop Dose Admin Hydrocodone Bitart/Acetaminophen 1 tab 11/13/19 15:21 [place] 5-325 Mg PO Q4H PRN Pain Rated 4-6 Azithromycin 500 mg in 250 mls
[2019-11-13] MEDS: TRIAMCINOLONE ACET 0.1% CREAM 15 GM TUBE 1 APPLIC TOPICAL (21:00)
[2019-11-13 22:00] VITALS: BP 126/73; PULSE 77; RESP 16; TEMP 37.2; O2SAT 100
[2019-11-14 06:00] VITALS: BP 133/68; PULSE 72; RESP 16; TEMP 36.5; O2SAT 99
[2019-11-14] MEDS: LEVOTHYROXINE SODIUM 75 MCG TABLET PO (06:16)
[2019-11-14] MEDS: DEXTROSE 5%/0.9% SOD CHL 1,000 ML 100 ML IV CONT (06:17)
[2019-11-14 06:22] LABS: Hematocrit 38.7 % (42.0-52.0); Hemoglobin 12.8 g/dL (14.0-18.0); Mean Corpuscular HGB Conc 33.1 g/dl (32-36); Mean Corpuscular Hemoglobin 31.8 pg (26-34); Mean Platelet Volume 9.9 fl (7.4-10.4); Platelet Count Result 185 k/mm3 (150-375); Red Blood Count 4.03 M/mm3 (4.6-6.20); Red Cell Distribution Width 12.3 % (11.5-14.5); White Blood Count 7.8 K/mm3 (4.5-10.0)
[2019-11-14] MEDS: TRIAMCINOLONE ACET 0.1% CREAM 15 GM TUBE 1 APPLIC TOPICAL (08:31)
[2019-11-14] MEDS: NICOTINE (*PBKC) 14 MG PATCH 1 PATCH TRANSDERM (08:31)
[2019-11-14 10:40] VITALS: TEMP 36.5
--- NOTE | 2019-11-14 13:24 | PM.PNGS ---
Progress Note: A&P Assessment and Plan (1) Diverticulitis of intestine with perforation without abscess: Code(s): K57.80 - Diverticulitis of intestine, part unspecified, with perforation and abscess without bleeding Status: Acute Assessment and Plan: Continues to clinically improve. WBC remains normal today and he is afebrile. Tolerating a low fiber diet. Ok to discharge patient from a surgical standpoint on oral antibiotics. Continue low fiber diet. F/u with Dr. Ellison or with a Surgeon at the [facility] in 2 weeks. Will need a colonoscopy as an outpatient. Additional Plan Discussed plan of care with Dr. Ellison. Subjective Subjective Date/Time Seen: 11/14/19 10:24 Patient reports: no new complaints, feels better, tolerating a regular diet, flatus and bowel movement Interval history: Patient seen this morning and reportedly is doing well. He states his pain has improved significantly. Tolerating a low fiber diet without any nausea, vomiting or increased bloating. States he still feels bloated but this has improved. Reports having lower abdominal pain only with movement at this point, but no longer having any abdominal pain at rest. Reports flatus and BM today. No other complaints at this time. Review of Systems Review of Systems: All systems reviewed & are unremarkable except as noted in HPI and below Constitutional: Constitutional: Reports no additional constitutional complaints, Denies chills and Denies fatigue Cardiovascular: Cardiovascular: Reports no additional cardiovascular complaints, Denies chest pain and Denies leg edema Respiratory: Respiratory: Reports no additional respiratory complaints, Denies cough and Denies dyspnea Gastrointestinal: Gastrointestinal: Reports as per HPI and Reports no additional gastrointestinal complaints Exam Const: General: comfortable, no acute distress, alert and awake Orientation/consciousness: patient oriented x3 GI: Inspection: other (slightly distended) GI Palp: Yes Soft to palpation, Yes Tenderness to palpation present (GI) (lower abd, mostly in LLQ, improved), No Guarding due to palpation present (GI) and No Rebound tenderness present Auscultation: normal bowel sounds Neuro: General: patient oriented x3, moves all extremities and no focal motor deficits Speech: normal speech Extrem: General: normal to inspection Psych: Mental Status: mental status grossly normal Attitude: cooperative Thought process: Normal thought process present Thought content: Yes Normal thought content present Objective Data Vital Signs Vital Signs: Vital Signs - 24 hr 11/13/19 14:00 07/05/20 22:00 11/14/19 06:00 Temperature 97.5 F L 99.0 F 97.7 F Pulse Rate 70 77 72 Respiratory Rate 16 16 16 Blood Pressure 132/68 126/73 133/68 Pulse Oximetry 96 100 99 11/14/19 10:40 Temperature 97.7 F Pulse Rate Respiratory Rate Blood Pressure Pulse Oximetry Intake/Output Intake/Output: Intake & Output 11/11/19 11/12/19 11/13/19 11/14/19 23:59 23:59 23:59 23:59 Intake Total 3710 4013 4160 1590 Output Total 1400 1850 800 Balance 3710 2613 2310 790 Meds/Results Medications: Active Medications Generic Name Dose Route Start Last Admin Trade Name Freq PRN Reason Stop Dose Admin Hydrocodone Bitart/Acetaminophen 1 tab 11/13/19 15:21 [place] 5-325 Mg PO Q4H PRN Pain Rated 4-6 Azithromycin 500 mg in 250 mls @ 250 mls/hr 11/11/19 18:00 11/13/19 19:33 Zithromax IVPB Infused QPM SCOTT Infusion Piperacillin/Tazobactam/Dextrose 3.375 gm in 50 mls @ 100 mls/hr 11/11/19 06:00 11/14/19 12:09 Zosyn 3.375 Gm/D5w 50ml Pm IVPB 100 mls/hr Q6HR SCOTT Administration Levothyroxine Sodium 75 mcg 11/14/19 06:30 11/14/19 06:16 Synthroid PO 75 mcg DAILY@0630 SCOTT Administration Morphine Sulfate 4 mg 11/10/19 20:01 11/13/19 23:21 Morphine Sulfate Inj IV PUSH 4 mg Q2H PRN Administration Pain Rated 7-10 Nicotine 1 patch 11/12/19 09:00
[2019-11-14 14:00] VITALS: BP 144/79; PULSE 78; RESP 18; TEMP 36.5; O2SAT 100
--- NOTE | 2019-11-14 15:03 | PM.DS ---
DS: Admitting Diagnosis Admitting Diagnosis Admitting Diagnosis: Diverticulitis of large intestine with perforation and abscess without bleeding DS: Discharge Diagnosis Discharge Diagnosis (1) Perforation of sigmoid colon due to diverticulitis: Code(s): K57.20 - Diverticulitis of large intestine with perforation and abscess without bleeding Status: Acute Assessment and Plan: Continue IV antibiotics. IV fluids Analgesia. General Surgery has been consulted for perforated diverticulitis (2) Sepsis: Qualifiers: Sepsis type: sepsis due to unspecified organism Sepsis acute organ dysfunction status: unspecified Qualified Code(s): A41.9 - Sepsis, unspecified organism Code(s): A41.9 - Sepsis, unspecified organism Status: Acute Assessment and Plan: w/ fever and leukocytosis. secondary to perforated diverticulitis.possible dscharge amparo as pt is improving abdominal pain is minimal (3) Leukocytosis: Qualifiers: Leukocytosis type: unspecified Qualified Code(s): D72.829 - Elevated white blood cell count, unspecified Code(s): D72.829 - Elevated white blood cell count, unspecified Status: Resolved Assessment and Plan: Secondary to diverticulitis. (4) Suspected COVID-19 virus infection: Code(s): Z20.828 - Contact with and (suspected) exposure to other viral communicable diseases Status: Acute Assessment and Plan: COVID is negative (5) Hyperthyroidism: Code(s): E05.90 - Thyrotoxicosis, unspecified without thyrotoxic crisis or storm Status: Chronic Assessment and Plan: Resume home medications when possible. (6) Tobacco dependence: Code(s): F17.200 - Nicotine dependence, unspecified, uncomplicated Status: Chronic Assessment and Plan: Counselling completed in hospital DS: Summary Hospital Course Reason for hospitalization: This is a pleasant 69 year old male with known hyperthyroidism who presented to the hospital with a complaint of diffuse lower abdominal pain since yesterday. Associated symptoms include fever and sporadic cough of greenish phlegm. The patient was referred to the hospital from urgent care. His last meal was yesterday. The patient was found to have a perforated diverticulitis on CT abd/pelvis in the ER [facility]. He has no previous history of diverticular disease and his last colonoscopy was over 20 years ago. He denies any bloody diarrhea and his last bowel movement was this evening. Currently he continues to have moderate lower abd pain. Routine labs demonstrated a WBC of 22,800. The patient was febrile in the ER tonight and was swabbed for COVID-19. General Surgery has been consulted by ER provider. He denies any other symptoms at this time. Hospital Course: Patient with bowel perforation was conservatively managed with IV antibiotic IV fluid, initially NPO was started on clear liquid and advanced diet as tolerated, there was no concern patient remained clinically stable, tolerated his diet, denies any abdominal pain nausea or vomiting fever chill patient is seen by surgery team, he is clinically stable will discharge the patient home today on oral antibiotic Status at Discharge Functional status at discharge: independent ambulation Overall status at discharge: patient is back to baseline Time Spent with Patient Time attestation: Total time spent providing and/or coordinating discharge services: Patient was seen and examined at the time of the discharge Condition at discharge is stable Code status: Full code. Time spent preparing discharge summary, discharge medications, discussing discharge planning with correctional counselor/case manager and patient is 35 minutes. Time spent: Greater than 30 minutes Exam Const: General: comfortable and no acute distress HENMT: General nose exam: Normal nares present Mouth: Yes moist mucous membranes Eyes: General: appearance normal, both eyes and all
== END 2019-11-14 16:05 | disposition home or self-care (01) | DRG 392 ==
LOC: ANHED 20:12 → ANH3MEDSUR 11-11 04:56
PROVIDERS: Family Medicine; Surgery; Admitting Provider Family Medicine; Emergency Provider Emergency Medicine; Visit Provider Family Medicine
DX: K57.20 Diverticulitis of large intestine with perforation and abscess without bleeding (principal); Z20.828 Contact with and (suspected) exposure to other viral communicable diseases; E05.90 Thyrotoxicosis, unspecified without thyrotoxic crisis or storm; F17.210 Nicotine dependence, cigarettes, uncomplicated
CPT/HCPCS: 36415; 71045; 74177; 80048; 80053; 80307; 81001; 81003; 83605; 83880; 84484; 85025; 85027; 85380; 87040; 87081; 87635; 87880; 93005; 96365; 96367; 99285; A9270; C9803; J0456; J0696; J2270; J2543; J7030; J7042; Q9967; U0003

== ENCOUNTER 2023-10-31 04:40 | Observation (INO) | payer MEDICARE, OTHER, SELFPAY ==
[2023-10-31] VITALS (53 sets, daily range): BP systolic 84–145; BP diastolic 52–78; PULSE 56–82; RESP 13–27; TEMP 34.6–36.9; O2SAT 93–100; BMI 23.2
--- NOTE | 2023-10-31 | ECHO_ITS ---
Patient Info Name: Lenny Lopez Age: 73 years : 1950 Gender: Male Ht: 67 in Wt: 148 lbs BSA: 1.79 m2 HR: 63 bpm BP: 145 / 78 mmHg Heart Rhythm: Sinus Rhythm Technical Quality: Good Exam Date: 10/31/2023 3:41 PM Exam Location: Echo Lab Patient Status: Inpatient Admit Date: 10/31/2023 Staff Ordering Physician: Hi Arvizu MD Retail Customer Service Specialist: Yousuf Valerio RDCS Attending Provider: Hi Arvizu MD Exam Type: CA echo doppler color flow Study Info Indications - syncope Complete two-dimensional, color flow and Doppler transthoracic echocardiogram is performed. Summary 1. Complete two-dimensional, color flow and Doppler transthoracic echocardiogram is performed. 2. Normal left ventricular size, thickness systolic and diastolic function. 3. Trivial mitral valve regurgitation. 4. Sinus rhythm. Left Ventricle Left ventricular chamber dimension is normal. Left ventricular systolic function is normal, estimated at 60-65%. The left ventricular diastolic function is normal. Right Ventricle Right ventricular chamber dimension is normal. Left Atria Left atrial chamber dimension is normal. Right Atria Right atrial chamber dimension is normal. Aortic Valve The aortic valve is normal. Pulmonic Valve The pulmonic valve is not well visualized. Mitral Valve The mitral valve has normal leaflets. There is trace mitral valve regurgitation. Tricuspid Valve The tricuspid valve leaflets are normal. Pericardium/Pleural The pericardium appears normal. Aorta The aortic root size at the sinus of Valsalva is normal. Left Ventricular Outflow Tract Name Value Normal LVOT 2D LVOT Diameter 2.0 cm LVOT Doppler LVOT Peak Gradient 3 mmHg LVOT Mean Gradient 1 mmHg LVOT VTI 18 cm LVOT VTI/AV VTI Ratio 0.7 LVOT Stroke Volume 57 ml LVOT CO 3.0 l/min LVOT CI 1.7 l/min/m2 Pulmonic Valve Name Value Normal PV Doppler PV Peak Gradient 2 mmHg Mitral Valve Name Value Normal MV Doppler MV Peak Gradient 2 mmHg MV Mean Gradient 1 mmHg MV Decel Harney 434 cm/s2 MV PHT 49 ms MV Area (PHT) 4.5 cm2 4.0-5.0 MV Area (Cont Eq VTI) 2.0 cm2 MV Regurgitation Doppler MR Peak Gradient 95 mmHg MV Celina
--- NOTE | ~2023-10-31 | CT_ITS ---
EXAMINATION: CT soft tissue neck wo con DATE: 10/31/2023 17:17 INDICATION: Left anterior neck mass. TECHNIQUE: Computed tomography (CT) of the neck was performed without intravenous contrast. Automated exposure control and iterative reconstruction technique were employed. The dose-length product was 3 24.81 mGy-cm. COMPARISON: None FINDINGS: There is mild scarring at the lung apices. There is mild emphysema. There are no pathologic ally enlarged lymph nodes. There is mild mucosal thickening in the paranasal sinuses. There are bilat eral mastoid effusions. There is mild cervical spondylosis. IMPRESSION: 1. No abnormal neck mass or lymphadenopathy. Reviewed, dictated and finalized at location E.
--- NOTE | ~2023-10-31 | CT_ITS ---
EXAMINATION: CTA chest PE abdomen pel DATE: 10/31/2023 06:10 INDICATION: Syncope, hypotension TECHNIQUE: Computed tomography angiography (CTA) of the chest, abdomen and pelvis was performed with 100 mL Omnipaque-350 intravenous contrast timed to evaluate the pulmonary arteries. Coronal maximum i ntensity projection 3D-reconstructions were created by the technologist. Automated exposure control a nd iterative reconstruction technique were employed. Exam dose: 658.59 mGy-cm total exam DLP. COMPARISON: 10/31/2023 portable AP chest FINDINGS: There is diagnostic contrast enhancement of the pulmonary arteries and no evidence of pulmo nary embolism. No thoracic aortic aneurysm or dissection. No hilar or mediastinal mass lesion or lymphadenopathy. Normal heart size. No pericardial or pleural effusion. Moderate emphysematous changes. Mild atelectasis at the lung bases. The liver, gallbladder, bile ducts, spleen, pancreas, pancreatic duct, and adrenal glands and kidneys are unremarkable. No urinary tract calculus or hydroureteronephrosis. There is prominent prostate enlargement. There is a Wolf catheter within the evacuated urinary bladd er. The bladder wall appears thickened which may be due to bladder outlet obstruction as result of pr ostatomegaly. Cystitis is not excluded. This examination is not sensitive for detection of bladder ma ss lesion. There is atherosclerotic calcification but normal caliber of the abdominal aorta. No intraperitoneal or retroperitoneal or pelvic mass lesion or adenopathy or ascites is detected. Diverticulosis of the colon; no CT evidence of diverticulitis. No bowel obstruction or intraperitonea l free air. No suspicious osteolytic or osteoblastic lesions. IMPRESSION: Emphysema No evidence of pulmonary embolism Mild atelectasis at the lung bases Prominent prostate enlargement Diverticulosis of the colon; no evidence of diverticulitis Reviewed, dictated and finalized at Location A. Reviewed, dictated and finalized at location A.
--- NOTE | ~2023-10-31 | CT_ITS ---
EXAMINATION: CT brain wo con DATE: 10/31/2023 17:17 INDICATION: Syncope. TECHNIQUE: Computed tomography (CT) of the head was performed without intravenous contrast. The mA wa s adjusted according to patient size. Iterative reconstruction technique was employed. The dose-lengt h product was 832.33 mGy-cm. COMPARISON: None FINDINGS: There is no intracranial hemorrhage, acute infarction, or abnormal intracranial mass lesion . There are scattered areas of low attenuation in the cerebral white matter, which is within normal l imits for the patient's age. The ventricles are normal in size. The orbits are normal. There is mild mucosal thickening in the paranasal sinuses. There are bilateral mastoid effusions. IMPRESSION: 1. Normal aging brain. Reviewed, dictated and finalized at location E. IMPRESSION: 1. Normal aging brain.
--- NOTE | ~2023-10-31 | XR_ITS ---
XR chest 1V portable DATE: 10/31/2023 05:22 INDICATION: Syncope, hypotension TECHNIQUE: Portable supine AP views on 10/31/2023 at 0518 hours COMPARISON: 11/10/2019 portable AP chest FINDINGS: Normal heart size. No hilar or mediastinal enlargement. Minimal atelectasis at the lung bases. No pulmonary consolidation, pleural effusion, pulmonary vascul ar congestion or pneumothorax is evident. IMPRESSION: Minimal atelectasis at the lung bases Reviewed, dictated and finalized at location A.
--- NOTE | 2023-10-31 04:44 | ECG_ITS ---
Test Date: 2023-10-31 04:42:07 Measurements Intervals [place] Rate: 63 P: 61 CT: 176 QRS: 74 QRSD: 97 T: 74 QT: 424 QTc: 437 Interpretive Statements SINUS RHYTHM MINOR NONSPECIFIC T-WAVE FLATTENING BORDERLINE ECG No previous ECG available for comparison Electronically Signed On 10-31-2023 08:05:39 CDT by Christian Worley M.D.
--- NOTE | 2023-10-31 04:54 | ED.GENADULT ---
HPI - General Adult General Chief complaint: Syncope Stated complaint: LETHARGIC History of Present Illness HPI narrative: Patient 73-year-old gentleman who presents emergency department with chief complaint of syncopal episodes. Patient reports he got off work around 3:00 a.m. and a individual home noticed that he passed out patient had couple of beers and a small hit of marijuana which is a normal routine the patient does report that he has had some shortness of breath and chest pain recently the patient was found hypotensive by EMS the patient denies vomiting denies blood in his stool denies any other complaints. Related Data Home Medications Medication Instructions Recorded Confirmed levothyroxine 75 mcg tablet 75 mcg PO DAILY 11/13/19 11/13/19 (Synthroid) triamcinolone acetonide 0.1 % 1 applic topical 2XW 11/13/19 11/13/19 topical cream Allergies Allergy/AdvReac Type Severity Reaction Status Date / Time No Known Allergies Allergy Verified 11/10/19 18:18 Review of Systems Review of Systems: A 10 system review of systems was completed on the patient and is negative except for what is stated in the HPI. Nursing and ancillary documentation was reviewed. [facility] Past Medical History Medical History Hernia Hyperthyroidism Smoking Surgical History Surgical History History of hernia surgery Family History Family History Father Family history of tuberculosis, Onset Age: 80 Patient's father is Sibling Family history of osteoarthritis Family history of chronic obstructive pulmonary disease Mother Patient's mother is Social History Social History Smoking packs per day: 0.5 Smoking cigarettes per day: 10.0 Years smoked: 56 Smoking pack-years: 28.00 Smoking status: Current every day smoker Tobacco type: cigarettes Alcohol intake: current Substance use: never Living arrangements: with family Occupation/Education: retired Gender identity (if verbalized by the patient): Male Exam Narrative: GENERAL: Well-appearing, well-nourished, and in no acute distress. HEAD: Normocephalic, atraumatic. EYES: PERRLA and EOMI. ENT: Nares clear, no rhinorrhea or epistaxis. Mucous membranes moist. NECK: Supple. CHEST: Clear to auscultation. No respiratory distress. HEART: Regular rate and rhythm. No murmur heard. Normal peripheral pulses. ABDOMEN: Soft, nontender, nondistended, normal active bowel sounds. EXTREMITIES: Normal range of motion. No edema. SKIN: Warm, dry, no rash. NEURO: No focal deficits. Alert and oriented x3. PSYCH: Normal mood and affect. Course Vital Signs Vital signs: Vital Signs Temperature 35.8 C L 10/31/23 04:38 Pulse Rate 62 10/31/23 04:38 Respiratory Rate 15 10/31/23 04:38 Blood Pressure 84/52 L 10/31/23 04:38 Pulse Oximetry 96 10/31/23 04:38 Oxygen Delivery Room Air 10/31/23 04:38 Temperature 35.9 C L 10/31/23 06:21 Pulse Rate 78 10/31/23 06:21 Respiratory Rate 14 10/31/23 06:21 Blood Pressure 104/61 10/31/23 06:21 Pulse Oximetry 94 10/31/23 06:21 Oxygen Delivery Room Air 10/31/23 04:38 Medical Decision Making [facility] Narrative Medical decision making narrative: Differential diagnosis includes pulmonary embolism dehydration, dysrhythmia, infection Laboratory studies were obtained on the patient which showed a white count of 11.8 electrolytes showed a BUN of 9 and a creatinine 1.4 lactic acid was 1.8 total CK is 73 troponin was negative COVID flu and RSV were negative CTA chest abdomen pelvis showed COPD but no acute findings The patient received 30 per kilos of IV fluids and improvement in his blood pressure. Case was discussed with the hospitalist the patient received f
[2023-10-31] MEDS: SODIUM CHLORIDE 0.9% IV 1,000 ML 999 ML IV CONT ×3 (05:12)
[2023-10-31 05:20] LABS: Basophils Absolute Auto 0.1 K/mm3 (0.0-0.1); Basophils Percent Auto 0.5 % (0.2-1.2); Eosinophils Absolute Auto 0.2 K/mm3 (0-0.3); Eosinophils Percent Auto 1.4 % (0-4.4); Hematocrit 46.2 % (42.0-52.0); Hemoglobin 15.5 g/dL (14.0-18.0); Immature Granulocyte Absolute 0.14 K/mm3 (0.00-0.031); Immature Granulocyte Percent A 1.2 % (0-0.5); Lymphocytes Absolute Auto 3.85 K/mm3 (0.9-3.2); Lymphocytes Percent Auto 32.7 % (18.3-44.2); Mean Corpuscular HGB Conc 33.5 g/dl (32-36); Mean Corpuscular Hemoglobin 32.2 pg (26-34); Mean Platelet Volume 9.9 fl (7.4-10.4); Monocytes Absolute Auto 0.8 K/mm3 (0.1-0.6); Monocytes Percent Auto 6.7 % (2.6-8.5); Neutrophils Absolute Auto 6.8 K/mm3 (1.3-6.7); Neutrophils Percent Auto 57.5 % (45.5-73.1); Platelet Count Result 208 k/mm3 (150-375); Red Blood Count 4.81 M/mm3 (4.6-6.20); Red Cell Distribution Width 14.6 % (11.5-14.5); White Blood Count 11.8 K/mm3 (4.5-10.0)
[2023-10-31 05:29] LABS: Ethanol 30 mg/dL (<10)
[2023-10-31 05:30] LABS: Alanine Aminotransferase 9 U/L (6-50); Albumin Level 3.5 g/dL (3.5-5.1); Alkaline Phosphatase 57 U/L (38-126); Anion Gap 6 mmol/L (4-12); Aspartate Amino Transferase 21 U/L (17-59); Bilirubin,Total 0.4 mg/dL (0.2-1.3); Blood Urea Nitrogen 9 mg/dL (9-20); Carbon Dioxide 23 mmol/L (22-30); Chloride 105 mmol/L (98-107); Estimated CRCL calculation 38 ml/min; Estimated Glomerular Filt Rate 49; Glucose 89 mg/dL (65-110); Lactic Acid Reflex 1.8 mmol/L (0.7-2.0); Lipase 80 U/L (23-300); Potassium 3.1 mmol/L (3.4-5.0); Sodium 134 mmol/L (137-145)
[2023-10-31 05:37] LABS: Bacteria Urine None Seen /hpf; Partial Thromboplastin Time 27.2 Seconds (22.3-36.8); Prothrombin Time 13.5 Seconds (11.1-14.7); RBC Urine >100 /hpf (0-2); Squamous Epithelial Cell Urine None Seen /hpf (Few); WBC Urine 0-5 /hpf (0-3)
[2023-10-31 05:41] LABS: Appearance Urine Clear (Clear); Bilirubin Urine Negative (Negative); Blood Urine 3+ (Negative); Color Urine Orange (Yellow); Glucose Urine UA Negative (Negative); Ketones Urine Negative (Negative); Leukocyte Esterase Ur Negative LEU/UL (Negative); NT Pro B Type Natriuretic Pept 149 pg/mL (19.9-100); Nitrate Urine Negative (Negative); Protein Urine Trace mg/dL (Negative); Specific Grav Ur 1.007 (1.001-1.035); Troponin I < 0.012 ng/mL (0.000-0.034); Urobilinogen Urine 0.2 mg/dL (<2.0); pH Urine 5.5 (5.0-9.0)
[2023-10-31 05:42] LABS: Add Urine Microscopic? YES
--- NOTE | 2023-10-31 05:42 | PC.NURSE ---
EDP Dr. Macdonald made aware of pts low temperatures at time of triage. All IV fluid bolus infusing through fluid warmer, Liliana hugger applied, and temp sensing Wolf placed.
[2023-10-31 05:47] LABS: Procalcitonin 0.1 ng/mL
[2023-10-31 06:06] LABS: Creatine Kinase 73 U/L (55-170)
[2023-10-31] MEDS: KCL 20 MEQ/SW 100 ML 100 ML 50 MEQ IVPB (06:16)
[2023-10-31 06:25] LABS: Influenza A QL RT-PCR Negative (Negative); Influenza B QL RT-PCR Negative (Negative); RSV RNA, RT-PCR Negative (Negative); SARS-CoV-2 RNA PCR Negative (Negative)
[2023-10-31] MEDS: SODIUM CHLORIDE 0.9% IV 1,000 ML 150 ML IV CONT (06:59)
--- NOTE | 2023-10-31 08:15 | ADMGEN ---
This patient, Lenny Lopez, was admitted to 2 Medical Room 240-01. Patient/family oriented to hospital policies and general routines including ID bracelet, bed and alarms, visiting hours, pain management, procedures, bathroom and other care routines, personal items, smoking policy, room service/diet, and visiting hours. report received from Bridget JACKSON in ED Information on how to activate the Rapid Response Team has been discussed. Patient/Family are encouraged to report perceived risks to care and to ask questions if they do not understand what they are told or what they should do.
[2023-10-31 09:35] LABS: Troponin I < 0.012 ng/mL (0.000-0.034)
[2023-10-31] MEDS: SODIUM CHLORIDE 0.9% IV 1,000 ML 125 ML IV CONT (13:54)
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
[2023-10-31] MEDS: NICOTINE (*PBKC) 14 MG PATCH 1 PATCH TRANSDERM (15:46)
[2023-10-31] MEDS: THIAMINE HCL 200 MG/2 ML VIAL 100 MG IV PUSH (15:46)
[2023-10-31 16:31] LABS: Amphetamine Screen Urine Negative (Negative); Barbiturate Screen Urine Negative (Negative); Benzodiazepines Screen Urine Negative (Negative); Cannabinoid Screen Urine Positive (Negative); Cocaine Screen Urine Negative (Negative); Methadone Screen Urine Negative (Negative); Opiate Screen Urine Negative (Negative); Phencyclidine Screen Urine Negative (Negative)
[2023-10-31 19:03] LABS: Glucose Point of Care 126 mg/dl (65-105)
[2023-11-01] VITALS (12 sets, daily range): BP systolic 125–145; BP diastolic 60–73; PULSE 53–78; RESP 16–17; TEMP 36.4–36.6; O2SAT 96–98
[2023-11-01 00:17] LABS: Glucose Point of Care 90 mg/dl (65-105)
[2023-11-01] MEDS: SODIUM CHLORIDE 0.9% IV 1,000 ML 125 ML IV CONT (04:24)
[2023-11-01 05:15] LABS: Basophils Percent Auto 0.3 % (0.2-1.2); Eosinophils Absolute Auto 0.2 K/mm3 (0-0.3); Eosinophils Percent Auto 1.5 % (0-4.4); Hemoglobin 14.4 g/dL (14.0-18.0); Immature Granulocyte Absolute 0.07 K/mm3 (0.00-0.031); Immature Granulocyte Percent A 0.7 % (0-0.5); Lymphocytes Absolute Auto 1.97 K/mm3 (0.9-3.2); Lymphocytes Percent Auto 19.3 % (18.3-44.2); Mean Corpuscular Hemoglobin 31.7 pg (26-34); Mean Corpuscular Volume 99.1 fl (80-100); Mean Platelet Volume 10.3 fl (7.4-10.4); Monocytes Absolute Auto 0.7 K/mm3 (0.1-0.6); Monocytes Percent Auto 6.8 % (2.6-8.5); Neutrophils Absolute Auto 7.3 K/mm3 (1.3-6.7); Neutrophils Percent Auto 71.4 % (45.5-73.1); Platelet Count Result 181 k/mm3 (150-375); Red Blood Count 4.54 M/mm3 (4.6-6.20); Red Cell Distribution Width 14.8 % (11.5-14.5); White Blood Count 10.2 K/mm3 (4.5-10.0)
[2023-11-01 05:16] LABS: Albumin Level 3.2 g/dL (3.5-5.1); Anion Gap 4 mmol/L (4-12); Blood Urea Nitrogen 7 mg/dL (9-20); Calcium 7.8 mg/dL (8.4-10.2); Carbon Dioxide 20 mmol/L (22-30); Chloride 111 mmol/L (98-107); Estimated CRCL calculation 53 ml/min; Estimated Glomerular Filt Rate > 60; Glucose 79 mg/dL (65-110); Magnesium 2.1 mg/dL (1.6-2.3); Phosphorus 2.5 mg/dL (2.5-4.5); Potassium 3.7 mmol/L (3.4-5.0); Sodium 135 mmol/L (137-145)
[2023-11-01 05:46] LABS: Cortisol Random 8.34 ug/dL
[2023-11-01 06:17] LABS: Thyroid Stimulating Hormone Reflex > 100.000 uIU/mL (0.465-4.68)
[2023-11-01 06:21] LABS: Folic Acid 6.9 ng/mL (2.76->20)
[2023-11-01] MEDS: LEVOTHYROXINE SODIUM 75 MCG TABLET PO (06:29)
[2023-11-01 06:38] LABS: Glucose Point of Care 87 mg/dl (65-105)
[2023-11-01 06:49] LABS: Free T4 Free Thyroxine Reflex 0.26 ng/dL (0.78-2.19)
--- NOTE | 2023-11-01 08:04 | PC.NURSE ---
Pt requested to not have continuos Sodium Chloride after 0. Pt stated , I want to get some uninterrupted sleep. Pt allowed me to restart fluids at 11/01/23@4am
[2023-11-01 08:06] LABS: Glucose Point of Care 106 mg/dl (65-105)
[2023-11-01] MEDS: NICOTINE (*PBKC) 14 MG PATCH 1 PATCH TRANSDERM (10:25)
[2023-11-01] MEDS: LEVOTHYROXINE SODIUM INJ 100 MCG/5 ML VIAL 50 MCG IV PUSH (10:25)
[2023-11-01] MEDS: CYANOCOBALAMIN 1,000 MCG TABLET 1000 MCG PO (10:25)
[2023-11-01] MEDS: FOLIC ACID 1 MG TABLET PO (10:25)
[2023-11-01] MEDS: THIAMINE HCL 100 MG TABLET PO (10:25)
[2023-11-01] MEDS: CYANOCOBALAMIN INJ 1,000 MCG/ML VIAL 1000 MCG IM (11:11)
[2023-11-01 13:04] LABS: Glucose Point of Care 147 mg/dl (65-105)
--- NOTE | 2023-11-01 15:47 | PM.IMPN ---
Progress Note: A&P Assessment and Plan (1) Syncope: Code(s): R55 - Syncope and collapse Status: Acute (2) Hematuria: Code(s): R31.9 - Hematuria, unspecified Status: Acute (3) Hypothyroid: Code(s): E03.9 - Hypothyroidism, unspecified Status: Acute (4) Tobacco dependence: Code(s): F17.200 - Nicotine dependence, unspecified, uncomplicated Status: Chronic (5) Hypokalemia: Code(s): E87.6 - Hypokalemia Status: Acute Plan Patient presents after having a syncopal episode. He was admitted to medical floor on telemetry. No mention of seizures but we considered this especially if he drinks more alcohol then he is admitting to. He was started on thiamine and folate. No evidence of alcohol withdrawal. UDS was positive for marijuana only. TSH >[address] brain okay. No neck mass by CT. Echo with EF 60-65% with normal diastolic function and no valve disease. Suspect he has profound hypothyroidism from noncompliance coupled with the alcohol and marijuana use resulting in HoTN and syncope. Levothyroxine IV started. Continue oral levothyroxine and advance dose. PT/OT ordered. Urine clear. Will remove Wolf. He will need to follow up with his urologist. He was educated about the benefits of medication compliance. Have patient up walking. Plan home tomorrow Code status - Full DVT prophylaxis - Lovenox Subjective Date/time seen: 11/01/23 15:47 Interval history: 73yo male with hypothyroidism here for syncope He is noncompliant with his levothyroxine dosing. He takes it a few days per week but misses doses frequently. States he has never had a normal thyroid blood test on his current dose of levothyroxine. Slept poorly. Hands feel tight. No CP Exam Narrative: AF 97.7 140/73 60 17 98% ra Gen - NARD Chest - few basilar rhonchi. Nml RR CV - RRR S1/S2 Abd - Soft. Nontender. Nondistended. Positive bowel sounds. - Wolf secured with clear yellow urine in the bag Ext - no pedal edema. mild bilateral hand edema Psych - normal mood and affect. Skin - warm and dry. Objective Data Vital Signs Vital Signs: Vital Signs - 24 hr 10/31/23 16:00 10/31/23 16:00 10/31/23 17:30 Temperature 97.8 F Pulse Rate 59 L Pulse Rate [Bilateral Pedal (Dorsalis Pedis) Palpation] 59 L Respiratory Rate Blood Pressure Pulse Oximetry Oxygen Delivery 10/31/23 20:06 10/31/23 20:00 10/31/23 20:00 Temperature 98.2 F Pulse Rate 67 56 L Pulse Rate [Bilateral Pedal (Dorsalis Pedis) Palpation] Respiratory Rate 16 Blood Pressure 138/60 Pulse Oximetry 98 Oxygen Delivery Room Air 11/01/23 00:00 11/01/23 04:25 11/01/23 00:00 Temperature 97.9 F Pulse Rate 62 55 L Pulse Rate [Bilateral Pedal (Dorsalis Pedis) Palpation] 55 L Respiratory Rate 16 Blood Pressure 145/70 H Pulse Oximetry 96 Oxygen Delivery 11/01/23 04:00 11/01/23 08:00 11/01/23 10:28 Temperature Pulse Rate 54 L 70 Pulse Rate [Bilateral Pedal (Dorsalis Pedis) Palpation] Respiratory Rate Blood Pressure Pulse Oximetry 97 Oxygen Delivery Room Air 11/01/23 11:43 11/01/23 10:30 11/01/23 10:30 Temperature Pulse Rate Pulse Rate [Bilateral Pedal (Dorsalis Pedis) Palpation] 64 Respiratory Rate Blood Pressure Pulse Oximetry Oxygen Delivery Room Air Room Air 11/01/23 11:57 11/01/23 12:00 11/01/23 12:30 Temperature Pulse Rate 73 Pulse Rate [Bilateral Pedal (Dorsalis Pedis) Palpation] 78 Respiratory Rate Blood Pressure Pulse Oximetry Oxygen Delivery Room Air 11/01/23 14:00 Temperature 97.7 F Pulse Rate 60 Pulse Rate [Bilateral Pedal (Dorsalis Pedis) Palpation] Respiratory Rate 17 Blood Pressure 140/73 Pulse Oximetry 98 Oxygen Delivery Intake/Output Intake/Output: Intake & Output 10/29/23 10/30/23 10/31/23 11/01/23 23:59 23:59 23:59 23:59 Intake Total 4580 780 Output To
[2023-11-01 16:13] LABS: Glucose Point of Care 81 mg/dl (65-105)
[2023-11-01] MEDS: ACETAMINOPHEN 325 MG TABLET 650 MG PO (17:12)
[2023-11-02] VITALS: PULSE 57
[2023-11-02 00:16] LABS: Glucose Point of Care 86 mg/dl (65-105)
[2023-11-02 04:00] VITALS: PULSE 57
[2023-11-02] MEDS: LEVOTHYROXINE SODIUM INJ 100 MCG/5 ML VIAL 50 MCG IV PUSH (06:25)
[2023-11-02] MEDS: LEVOTHYROXINE SODIUM 100 MCG TABLET PO (06:25)
[2023-11-02 06:29] VITALS: BP 143/73; PULSE 60; RESP 16; TEMP 36.4; O2SAT 96
[2023-11-02 07:00] LABS: Glucose Point of Care 83 mg/dl (65-105)
[2023-11-02] MEDS: FOLIC ACID 1 MG TABLET PO (09:24)
[2023-11-02] MEDS: THIAMINE HCL 100 MG TABLET PO (09:24)
[2023-11-02] MEDS: NICOTINE (*PBKC) 14 MG PATCH 1 PATCH TRANSDERM (09:24)
[2023-11-02] MEDS: CYANOCOBALAMIN 1,000 MCG TABLET 1000 MCG PO (10:24)
--- NOTE | 2023-11-02 10:38 | PM.DS ---
DS: Admitting Diagnosis Discharge Date 11/02/23 Admitting Diagnosis Syncope DS: Discharge Diagnosis Discharge Diagnosis (1) Syncope: Code(s): R55 - Syncope and collapse Status: Acute (2) Hematuria: Code(s): R31.9 - Hematuria, unspecified Status: Acute (3) Hypothyroid: Code(s): E03.9 - Hypothyroidism, unspecified Status: Acute (4) Tobacco dependence: Code(s): F17.200 - Nicotine dependence, unspecified, uncomplicated Status: Chronic (5) Hypokalemia: Code(s): E87.6 - Hypokalemia Status: Acute DS: Summary Hospital Course Reason for hospitalization: 73yo male with hypothyroidism here for syncope. Please see H&P for details. Hospital Course: Patient presents after having a syncopal episode. In the ED, he was hypotensive with BP 84/52. He was hypothermic with temperature of 94.3 degrees. WBC 11.8K, sodium 134 and potassium 3.1. Cr 1.4. Troponin negative x2. UA showing >100 RBC but this was traumatic resulting in hematuria. Wolf was placed. He has BPH and a hx of prostate biopsy that was negative for prostate cancer. He follows with urology at the [place]. He has hematuria regularly. He does not eat much in general but no change in oral intake recently. CTA Ch/Abd/Pel showing no PE or dissection. He had atelectasis and prominent BPH. EKG showing normal sinus with minor nonspecific T wave flattening. Alcohol level was 30. Influenza, RSV and COVID PCR negative. He drinks about 3-4 drinks per night 4 nights/week on average. He denies other drug use and denies hx of IV drug use. He was given 3L of IV fluids. Potassium replaced. His BP and temperature improved. He was admitted to medical floor on telemetry. No mention of seizures but we considered this especially if he drinks more alcohol then he is admitting to. He was started on thiamine and folate. CIWA protocol but score remained low. No evidence of alcohol withdrawal. UDS was positive for marijuana only. TSH >[address] brain okay. No neck mass by CT. Echo with EF 60-65% with normal diastolic function and no valve disease. Suspect he has profound hypothyroidism from noncompliance coupled with the alcohol and marijuana use resulting in HoTN and syncope. Levothyroxine IV started. We continued oral levothyroxine and advanced the dose. B12 level low end of normal so replacement ordered. MMA ordered and pending. He worked with PT/OT. Urine became clear; we removed Wolf and patient was able to void o his own. He will need to follow up with his urologist. He was educated about the benefits of medication compliance. Patient has been up walking without symptoms. He was educated about the benefits of smoking cessation. He overall did well and was able to be discharged home on 11/02/23. Status at Discharge Cognitive/behavioral status at discharge: stable Time Spent with Patient Time attestation: Total time spent providing and/or coordinating discharge services: 35 minutes Time spent: Greater than 30 minutes Exam Narrative: AF 97.5 143/73 60 16 96% ra Gen - NARD Chest - scattered rhonchi. nml RR CV - RRR S1/S2 Abd - Soft. Nontender. Nondistended. Positive bowel sounds. Ext - no pedal edema. mild right hand edema (improved from yesterday) Psych - normal mood and affect. Skin - warm and dry. DS: Data Data Completed and Pending Labs on day of discharge: Labs from last 24 hours 11/02/23 11/02/23 11/02/23 06:24 04:26 00:11 POC Capillary Glucose 83 86 Methylmalonic Acid Pending Zinc Pending 11/01/23 11/01/23 16:10 12:59 POC Capillary Glucose 81 147 H Methylmalonic Acid Zinc Preliminary micro results at discharge 10/31/23 05:11 Blood Culture - Preliminary Blood 10/31/23 05:11 Blood Culture - Preliminary Blood Discharge Plan Discharge Attending physician on discharge: Hi Arvizu Discharging Clinician: Hi Arvizu Anticipat
[2023-11-04 11:55] LABS: Zinc 40 mcg/dL (60-130)
[2023-11-04 16:04] LABS: Methylmalonic Acid 375 nmol/L (69-390)
--- NOTE | 2023-11-06 10:05 | PC.NURSE ---
MMA is WNL at 375. Zinc is low at 40. Dr. Arvizu aware of findings.
--- NOTE | 2023-11-17 10:06 | PC.NURSE ---
called Zinc sulfate 110 mg by mouth daily into [facility] pharmacy per Dr. Arvizu. Attempted to call pt. PT did not answer and VM is not set up.
== END 2023-11-02 12:10 | disposition home or self-care (01) ==
LOC: ANHED 07:04 → ANH2MED 13:14
PROVIDERS: Admitting Provider Internal Medicine; Emergency Provider Emergency Medicine; Visit Provider Internal Medicine
DX: R55 Syncope and collapse (principal); R31.9 Hematuria, unspecified; E87.6 Hypokalemia; R22.1 Localized swelling, mass and lump, neck; F17.210 Nicotine dependence, cigarettes, uncomplicated; E03.9 Hypothyroidism, unspecified; N40.0 Benign prostatic hyperplasia without lower urinary tract symptoms; F12.90 Cannabis use, unspecified, uncomplicated; Z20.822 Contact with and (suspected) exposure to COVID-19; Z79.899 Other long term (current) drug therapy
CPT/HCPCS: 36415; 70450; 70490; 71045; 71275; 74177; 80053; 80069; 80307; 81001; 82533; 82550; 82607; 82746; 82948; 83605; 83690; 83735; 83880; 83921; 84145; 84439; 84443; 84484; 84630; 85025; 85610; 85730; 87040; 87637; 93005; 93306; 96361; 96365; 96366; 96372; 96374; 96375; 97161; 97165; 99285; A9270; G0378; J0650; J3411; J3420; J3480; J7030; Q9967

== ENCOUNTER 2024-01-25 20:40 | Emergency (ER) | payer MEDICARE, OTHER, SELFPAY ==
--- NOTE | ~2024-01-25 | XR_ITS ---
Portable chest x-ray Comparison: 10/31/2023 Clinical History: Shortness of breath Findings: Probable focal retrocardiac airspace disease. Right lung clear. Cardiomediastinal silhoue tte is stable. Bones and soft tissues are unremarkable. Impression: Probable retrocardiac airspace disease. Correlate for left basilar atelectasis or pneumonia. Reviewed, dictated and finalized at [facility]. Impression: Probable retrocardiac airspace disease. Correlate for left basilar atelectasis or pneumonia.
[2024-01-25 20:59] VITALS: BP 120/64; PULSE 71; RESP 16; TEMP 36.9; O2SAT 100
--- NOTE | 2024-01-25 20:59 | ECG_ITS ---
Test Date: 2024-01-25 21:03:53 Measurements Intervals [place] Rate: 73 P: 52 MT: 157 QRS: 59 QRSD: 88 T: 68 QT: 357 QTc: 394 Interpretive Statements SINUS RHYTHM DELAYED PRECORDIAL R/S TRANSITION BORDERLINE T WAVE ABNORMALITY- HIGH LATERAL LEADS BASELINE ARTIFACT- I, II, III, AVR, AVL, AVF BORDERLINE ECG Compared to ECG 10/31/2023 04:42:07 NO SIGNIFICANT CHANGE Electronically Signed On 01-26-2024 05:39:02 CDT by Andres Campos D.O.
[2024-01-25 21:35] LABS: Strep Group A RT-PCR NOT DETECTED (Negative)
[2024-01-25 21:46] LABS: Influenza A QL RT-PCR Negative (Negative); Influenza B QL RT-PCR Negative (Negative); RSV RNA, RT-PCR Negative (Negative); SARS-CoV-2 RNA PCR Negative (Negative)
[2024-01-25 23:07] VITALS: BP 128/72; PULSE 80; RESP 16; O2SAT 99
[2024-01-26 01:36] VITALS: O2SAT 96
[2024-01-26 02:10] LABS: Basophils Percent Auto 0.5 % (0.2-1.2); Eosinophils Absolute Auto 0.2 K/mm3 (0-0.3); Eosinophils Percent Auto 2.3 % (0-4.4); Hematocrit 49.4 % (42.0-52.0); Hemoglobin 16.6 g/dL (14.0-18.0); Immature Granulocyte Absolute 0.02 K/mm3 (0.00-0.031); Immature Granulocyte Percent A 0.3 % (0-0.5); Lymphocytes Absolute Auto 1.48 K/mm3 (0.9-3.2); Lymphocytes Percent Auto 18.6 % (18.3-44.2); Mean Corpuscular HGB Conc 33.6 g/dl (32-36); Mean Corpuscular Volume 95.2 fl (80-100); Mean Platelet Volume 10.2 fl (7.4-10.4); Monocytes Percent Auto 12.4 % (2.6-8.5); Neutrophils Absolute Auto 5.3 K/mm3 (1.3-6.7); Neutrophils Percent Auto 65.9 % (45.5-73.1); Platelet Count Result 180 k/mm3 (150-375); Red Blood Count 5.19 M/mm3 (4.6-6.20); Red Cell Distribution Width 11.9 % (11.5-14.5)
--- NOTE | 2024-01-26 02:11 | ED.GENADULT ---
HPI - General Adult General Chief complaint: Upper Respiratory Infection Stated complaint: uri, sob Time Seen by Provider: 01/26/24 01:43 History of Present Illness HPI narrative: Patient is a 73-year-old gentleman who presents emergency department with chief complaint of upper respiratory symptoms. Patient has prior history of congestive heart failure sepsis patient was started having cough shortness of breath for the last several weeks. Patient reports symptoms got worse today and he decided to come to the emergency department for evaluation. Related Data Allergies Allergy/AdvReac Type Severity Reaction Status Date / Time No Known Allergies Allergy Verified 11/10/19 18:18 Review of Systems Review of Systems: A 10 system review of systems was completed on the patient and is negative except for what is stated in the HPI. Nursing and ancillary documentation was reviewed. [facility] Past Medical History Medical History BPH (benign prostatic hyperplasia) hx of prostate bx Hernia Hyperthyroidism He denies that he had thyroid ablation Hypothyroid Smoking Surgical History Surgical History History of hernia surgery He denies Family History Family History Father Family history of tuberculosis, Onset Age: 80 Patient's father is Sibling Family history of osteoarthritis Family history of chronic obstructive pulmonary disease Mother Patient's mother is Social History Social History Social History: lives with a female friend and his [id number]. He sleeps on the couch. Denies hx of other drug use. No hx of IVDU. Full code. He nominates Ana Ellison (cousin) to be the one to make medical desicions for him if he is unable. Smoking packs per day: 0.5 Smoking cigarettes per day: 10.0 Years smoked: 60 Smoking pack-years: 30.00 Smoking status: Current every day smoker Tobacco type: cigarettes Second hand tobacco smoke exposure: Yes Alcohol intake: current Drinks per week: 4 Substance use: current Substance use type: marijuana Last use: 10/30/23 Do You Feel Safe in your Home?: Yes Lack of Transportation: No Lack of Food: Never True Current Housing: I Have Housing Concerned About Future Housing: YES Difficulty Paying Gas/Electric Bills: No Difficulty Paying for Meds: No Currently Unemployed: No Education: High School Diploma/GED Difficulty w/ Childcare or Family Care: No Living arrangements: with family Occupation/Education: retired Gender identity (if verbalized by the patient): Male Spiritual care concerns: No Exam Narrative: GENERAL: Well-appearing, well-nourished, and in no acute distress. HEAD: Normocephalic, atraumatic. EYES: PERRLA and EOMI. ENT: Nares clear, no rhinorrhea or epistaxis. Mucous membranes moist. NECK: Supple. CHEST: Clear to auscultation. No respiratory distress. HEART: Regular rate and rhythm. No murmur heard. Normal peripheral pulses. ABDOMEN: Soft, nontender, nondistended, normal active bowel sounds. EXTREMITIES: Normal range of motion. No edema. SKIN: Warm, dry, no rash. NEURO: No focal deficits. Alert and oriented x3. PSYCH: Normal mood and affect. Course Vital Signs Vital signs: Vital Signs Temperature 36.9 C 01/25/24 20:59 Pulse Rate 71 01/25/24 20:59 Respiratory Rate 16 01/25/24 20:59 Blood Pressure 120/64 01/25/24 20:59 Pulse Oximetry 100 01/25/24 20:59 Oxygen Delivery Room Air 01/25/24 20:59 Temperature 36.9 C 01/25/24 20:59 Pulse Rate 80 01/26/24 02:45 Respiratory Rate 18 01/26/24 02:45 Blood Pressure 128/72 01/25/24 23:07 Pulse Oximetry 96 01/26/24 01:36 Oxygen Delivery Room Air 01/26/24 01:36 Medical Decision Making
[2024-01-26 02:24] LABS: Alanine Aminotransferase 12 U/L (6-50); Albumin Level 4.2 g/dL (3.5-5.1); Alkaline Phosphatase 58 U/L (38-126); Anion Gap 9 mmol/L (4-12); Aspartate Amino Transferase 24 U/L (17-59); Bilirubin,Total 0.7 mg/dL (0.2-1.3); Blood Urea Nitrogen 11 mg/dL (9-20); Calcium 8.9 mg/dL (8.4-10.2); Carbon Dioxide 28 mmol/L (22-30); Chloride 99 mmol/L (98-107); Estimated CRCL calculation 41 ml/min; Estimated Glomerular Filt Rate 59; Glucose 88 mg/dL (65-110); Potassium 4.1 mmol/L (3.4-5.0); Sodium 136 mmol/L (137-145)
[2024-01-26 02:25] LABS: Lactic Acid Reflex 1.5 mmol/L (0.7-2.0)
[2024-01-26 02:36] VITALS: PULSE 80; RESP 16
[2024-01-26 02:36] LABS: NT Pro B Type Natriuretic Pept 243 pg/mL (19.9-100); Troponin I < 0.012 ng/mL (0.000-0.034)
[2024-01-26] MEDS: IPRATROPIUM 0.5 MG/ALBUTEROL SULFATE 2.5 MG AMPUL.NEB 3 ML INHALATION (02:36)
[2024-01-26 02:45] VITALS: PULSE 80; RESP 18
[2024-01-26 03:25] LABS: Procalcitonin 0.2 ng/mL
[2024-01-26 03:29] VITALS: BP 133/81; PULSE 70; RESP 18; O2SAT 97
== END 2024-01-26 03:35 | disposition home or self-care (01) ==
PROVIDERS: Emergency Provider Emergency Medicine
DX: J20.9 Acute bronchitis, unspecified (principal); B96.89 Other specified bacterial agents as the cause of diseases classified elsewhere; Z20.822 Contact with and (suspected) exposure to COVID-19; I50.9 Heart failure, unspecified; N40.0 Benign prostatic hyperplasia without lower urinary tract symptoms; E03.9 Hypothyroidism, unspecified; F17.210 Nicotine dependence, cigarettes, uncomplicated; Z79.899 Other long term (current) drug therapy
CPT/HCPCS: 36415; 71045; 80053; 83605; 83880; 84145; 84484; 85025; 87637; 87651; 93005; 94640; 99284

== ENCOUNTER 2024-10-04 11:59 | Emergency (ER) | payer MEDICARE, OTHER, SELFPAY ==
--- NOTE | ~2024-10-04 | XR_ITS ---
Clinical Indication: Chest pain PA and lateral views of the chest: Comparison: 01/26/2024 Findings: The lungs are clear, without evidence of focal consolidation or pleural effusion. Cardiome diastinal silhouette is within normal limits. Bones and soft tissues are unremarkable. Impression: Normal chest. Reviewed, dictated and finalized at location . Impression: Normal chest.
--- NOTE | ~2024-10-04 | CT_ITS ---
CT brain wo con Ordering provider: Mary Cruz PA-C History: 74 years Male with . vertigo last week w/ persistnet blurry vision . Comparison: August 31, 2023 Technique: CT of the head without contrast. Radiation reduction technique utilized. The dose-length product was 605.33 mGy-cm. FINDINGS: BRAIN PARENCHYMA AND CSF SPACES: Mild leukoaraiosis and diffuse cortical atrophy. Mild atheromatous d isease. No midline shift, mass effect or hemorrhage. The brain parenchyma and CSF spaces are otherwi se normal. VISUALIZED PARANASAL SINUSES: Normal. MASTOIDS: Normal. BONES: Normal. SOFT TISSUES: Visualized nasopharynx is normal. Superficial soft tissues are normal. IMPRESSION: No acute intracranial findings. Reviewed, dictated and finalized at location A.
--- NOTE | ~2024-10-04 | CT_ITS ---
CTA chest PE protocol Ordering provider: Mary Cruz History: 74 years Male with . sob, pain with deep breath, CP . Comparison: October 31, 2023 Technique: CT angiogram chest was performed following timed intravenous injection of contrast. Thin s lice axial images and reformatted coronal images were obtained. Three dimensional reformatted images of the chest were also obtained using a [employer] workstation. . Automated exposure control and iterati ve reconstruction technique were employed. The dose-length product was 231.83 mGy-cm. 100 mL Omnipaqu e 350 was given IV. Findings: PULMONARY ARTERIES: No pulmonary embolus. VISUALIZED THORACIC INLET: Normal. MEDIASTINUM: Aorta/coronary arteries: Mild atheromatous disease. Heart/other: The heart is slightly enlarged. Pericardial effusion is noted. Lymph nodes: No mediastinal or hilar adenopathy. LUNGS: Minimal groundglass appearance seen in the left lung base which may indicate atelectasis versus pneum onia. Follow-up advised. No pulmonary nodules or masses. No infiltrates or effusions. No pneumothorax . Underlying emphysematous changes. Dependent atelectatic changes seen in the left upper lobe and bot h lower lobes. VISUALIZED UPPER ABDOMEN: Otherwise, the visualized upper abdomen is normal. MUSCULOSKELETAL: Soft tissues: The superficial soft tissues are normal. Bones: Age appropriate degenerative changes of the spine. IMPRESSION: 1. No pulmonary embolism. 2. Pericardial effusion. 3. Impression 4. Minimal groundglass appearance in the left lung base which may indicate atelectasis versus pneumo sigifredo. Otherwise, No acute cardiopulmonary pathology. Reviewed, dictated and finalized at location A. IMPRESSION: 1. No pulmonary embolism. 2. Pericardial effusion. 3. Impression 4. Minimal groundglass appearance in the left lung base which may indicate ate lectasis versus pneumonia. Otherwise, No acute cardiopulmonary pathology.
--- NOTE | 2024-10-04 12:01 | ECG_ITS ---
Test Date: 2024-10-04 12:06:21 Measurements Intervals [place] Rate: 69 P: 45 [place]: 170 QRS: 52 QRSD: 90 T: 5 QT: 343 QTc: 370 Interpretive Statements SINUS RHYTHM WITH FREQUENT VENTRICULAR PREMATURE COMPLEXES LOW QRS VOLTAGE IN EXTREMITY LEADS [QRS DEFLECTION < 0.5 mV IN LIMB LEADS] ABNORMAL RHYTHM ECG Compared to ECG 01/25/2024 21:03:53 Ventricular premature complex(es) now present Low QRS voltage now present Electronically Signed On 10-04-2024 14:27:00 CDT by Homero Padgett M.D.
--- OUTSIDE RECORDS SUMMARY | 2024-10-04 12:02 | XMS_ITS | Encounter Summary ---
Author Name [facility] [facility] [place] Address [address] [place] [address] Care Team Providers Care Tobacco Packer Name Role Phone RODNEY STONE Primary Care Provider Unavailabl e Insurance Providers: All historical and current Section Date Range: From patient's date of to the date document was created. This section includes the names of all active insurance providers for the patient. Insurance Provider Type of Coverage Plan Name Start of Policy Coverage End of Policy Coverage Group Number Member ID Insurance Provider's Telephone Number Policy Hays's Name Patient's Relationship to Policy Hays MEDICARE (WNR) MEDICARE (M) PART B Nov 08, 2014 PART B [id number] CHARLES TOLENTINO PATIENT MEDICARE (WNR) MEDICARE (M) PART A Apr 10, 2013 PART A [id number] CHARLES TOLENTINO PATIENT Selected Encounter This section includes the information on record at [place] for the Encounter. Date/Time Encounter Type Encounter Description Reason Provider Source Apr 18, 2024 10:02 AM Outpatient Encounter ADMIN PAT ACTIVTIES (MASNONCT) DELTA HIGH Encounter Template Text not used by [place] Plan of Treatment: Future Appointments (+ 6 months) and Future Tests (+/- 45 days) The Plan of Treatment section includes future care activities for the patient from all [facility] treatment[facility]ilities. This section includes future appointments and future orders which are active, pending or scheduled. Future Appointments This section includes appointments that were scheduled to occur 6 months from the date of the Encounter, up to a maximum of 20 appointments. The data comes from all [facility] facilities. Appointment Date/Time Appointment Type Appointme nt Facility Name May 03, 2024 10:00 AM AMBULATORY - MEDICINE [facility] Jun 13, 2024 02:30 PM AMBULATORY - MEDICINE [facility] Jul 14, 2024 02:30 PM AMBULATORY - MEDICINE [facility] Lab Results: +/- 30 days of the encounter This section includes the Chemistry and Hematology Lab Results on record with [place] for the patient. Radiology Reports and Pathology Reports are provided separately, in subsequent sections. Lab Results This section contains the Chemistry/Hematology Results that were resulted 30 days before or 30 daysafter the date of the Encounter. Date/Time Source Result Type Result - Unit Interpretation Reference Range Specimen Type Comment Apr 18, 2024 11:04 AM [facility] BRAIN NATRIURETIC PEPTIDE PLASMA Specimen Type : PLASMA No comment entered. Ordering Provider: MARQUES SANCHEZ Report Released Date/Time: Apr 18, 2024 10:59 AM Reporting Lab: [facility] [address] [address] Performing Lab: [address] [address] BRAIN NATRIURETIC PEPTIDE 20.2 pg/mL 0-1 00 Apr 18, 2024 11:04 AM [facility] CBC BLOOD Specimen Type: BLOOD No comment entered. Ordering Provider: MARQUES SANCHEZ Report Released Date/Time: Apr 18, 2024 10:59 AM Reporting Lab: [address] [address] Performing Lab: [address] [address] WBC 7.9 10*3/uL 3.6-11.2 RBC 4.86 10*6/uL 4.10-5.70 HGB 15.2 g/dL 13.1-16.8 HCT 46.0 38.2-48.4 MCV 94.7 fL 80.0-100.0 MCH 31.3 pg 27.0-34.0 MCHC 33.0 g/dL 33.0-36.0 PLT 251 10*3/uL 150-400 MPV 10.4 fL 7.5-11.2 RDW 13.1 11.8-15.1 LYMPHOCYTES, AUTO % 25 MONOCYTES, AUTO % 8 NEUTROPHILS, AUTO % 64 EOSINOPHILS, AUTO % 2 BASOPHILS, AUTO % 1 LYMPHOCYTES, ABSOLUTE 1.99 10*3/uL 0.77- 4.50 MONOCYTES, ABSOLUTE 0.65 10*3/uL 0.19-0. 80 NEUTROPHILS, ABSOLUTE 5.07 10*3/uL 2.10- 8.00 EOSINOPHILS, ABSOLUTE 0.13 10*3/uL 0.00- 0.60 BASOPHILS, ABSOLUTE 0.04 10*3/uL 0.00-0. 20 Apr 18, 2024 11:04 AM [facility] APTT PLASMA Specimen Type: PLASM A No comment entered. Ordering Provider: MARQUES SANCHEZ Report Released Date/Time: Apr 18, 2024 10:59 AM Reporting Lab: [facility] [address] [address] Performing Lab: [facility] [address] [address] APTT 29.8 s 26.7-39.9 Apr 18, 2024 11:04 AM [facility] PT/INR NEW (STL-MA) PLASMA Specimen Type: PLAS MA No comment entered. Ordering Provider: MARQUES SANCHEZ Report Released Date/Time: Apr 18, 2024 10:59 AM Reporting Lab: [facility] [address] [address] Performing Lab: [facility] [address] [address] PROTIME 10.7 s 9.4-12.5 INR VALUE 1.0 {INR} Apr 18, 2024 11:04 AM [facility] TROPONIN I PLASMA Specimen Type: PLASM A Comment: No hemolysis noted. Ordering Provider: MARQUES SANCHEZ Report Released Date/Time: Apr 18, 2024 10:59 AM Reporting Lab: [facility] [address] [address] Performing Lab: [facility] [address] [address] TROPONIN I <0.010 ng/mL 0-0.033 Apr 18, 2024 11:04 AM [facility] COMPREHENSIVE METABOLIC PANEL PLASMA Specimen Type: PLASMA Comment: No hemolysis noted. Ordering Provider: MARQUES SANCHEZ Report Released Date/Time: Apr 18, 2024 10:59 AM Reporting Lab: [facility] [address] [address] Performing Lab: [facility] [address] [place] [phone] CREATININE 1.02 mg/dL 0.7-1.3 UREA NITROGEN 11.7 mg/dL 9.0-25.0 GLUCOSE 63 mg/dL L 72-99 SODIUM 138 meq/L 136-145 POTASSIUM 4.2 meq/L 3.5-5 CHLORIDE 103 meq/L 98-107 CARBON DIOXIDE 27 meq/L 22-31 CALCIUM 9.1 mg/dL 8.4-10.4 PROTEIN 6.8 g/dL 6-8.6 ALBUMIN 4.1 g/dL 3.4-5 TOTAL BILIRUBIN 0.6 mg/dL 0.2-1.2 ALKALINE PHOSPHATASE 54 U/L 40-150 AST/SGOT 19 U/L 5-34 ALT/SGPT 10 U/L 8-40 EGFR (CKD-EPI 2020) 76.6 >60 Vital Signs: All taken on the encounter date This section contains inpatient and outpatient Vital Signs collected on the date of the Encounter. Date/Time Temperature Pulse Blood Pressure Respiratory Rate SP02 Pain Height Weight Body Mass Index Source Apr 18, 2024 01:36 PM 77 139/77 [facility] N Apr 18, 2024 11:13 AM 98.8 64 147/68 16 0 [facility] N Social History: Smoking Status (Most current) and Tobacco Use (All prior to encounter date) This section includes the most current, and the historical, smoking and tobacco- related health factors from the [place] facility where the Encounter took place. Current Smoking Status This section includes the most current smoking, or tobacco-related health factor, from the [place] facility where the Encounter took place. 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 The data comes from the [place] facility where the Encounter took place. Date/Time Smoking Status/Tobacco Use Comment F acility Dec 05, 2019 09:44 AM VA-TOBACCO USE ADVICE [facility] Dec 05, 2019 09:44 AM VA-TOBACCO USE INFORMATION SYSTEMS SECURITY ANALYST NO [facility] Dec 05, 2019 09:44 AM VA-TOBACCO USE MED NO [facility] Dec 05, 2019 09:44 AM VA-TOBACCO USE [place] 30 MIN OF WAKEUP [facility] Dec 05, 2019 09:44 AM VA-TOBACCO USER EVERY DAY [facility] Radiology Reports: +/- 30 days of the encounter Radiology Reports For cases when an order for radiology services may have been completed prior to the date of the Encounter, the report list includes the Radiology Reports that were completed up to 30 days before dateof the Encounter. For cases when an order for radiology services may have been completed after the date of the Encounter, the report list also includes the Radiology Reports that were completed up to30 days after date of the Encounter. The data comes from all [place] treatment facilities. Date/Time Radiology Report Provider Source Apr 18, 2024 11:00 AM CHEST PORTABLE: LILIANA TOLENTINO [id number] -[id number] Ex Date: APR 18, 2024@11:00 Req Phys: MARQUES SANCHEZ Loc: [facility] (Req'g Img Loc: [facility] RADIOLOGY SUITE Service: [address] [address] (Case [id number] COMPLETE) CHEST PORTABLE (RAD Detailed) CPT:21911 Proc Modifiers : Portable Reason for Study: chest pain Clinical History: Report Status: Verified Date Reported: APR 18, 2024 Date Verified: APR 18, 2024 Furniture Maker E-Sig:/ES/Luis Dickson MD Report: CHEST PORTABLE CASE #: [id number] DATE:04/18/2024 12:07 PM CLINICAL HISTORY:chest pain COMPARISON: 09/07/2017 TECHNIQUE: CHEST PORTABLE Impression: FINDINGS/IMPRESSION: Left basilar atelectasis versus less likely pneumonia. Heart size within normal limits. No CHF. Pleural effusion. No pneumothorax. No fractures. Primary Interpreting Staff: Luis Dickson MD, Radiologist (Furniture Maker) /LUIS BURGER [facility] Encounter Notes: All associated encounter notes This section contains the clinical notes associated to the Encounter. Date/Time Encounter Note(s) Provider Source Apr 18, 2024 10:02 AM TELEHEALTH NOTE: LOCAL TITLE: TELE EMERGENCY CARE ENGINEERING DRAFTER NOTE STANDARD TITLE: TELEHEALTH NOTE DATE OF NOTE: APR 18, 2024@10:02 ENTRY DATE: APR 18, 2024@10:15:44 AUTHOR: DELTA HIGH COSIGNER: URGENCY: STATUS: COMPLETED [place] referred from: [place]'s name, last 4, and were verified. Encounter/Visit Type: Telephone [place]'s Phone Number, Address, Email Address and Contact Information Patient Address: [address] [place] [address] Patient Email - NONE FOUND Emergency Contact: CON - Patient Contacts Patient Phone Numbers: Cell: No data available Home: Work: Emergency Contact: Name: RAMIREZ TOLENTINO Relationship: UNRELATED FRIEND/OTHER Secondary Emergency Contact: Name: No data available Relationship: No data available Phone: No data available Secondary Next of Kin Contact Name: No data available Relationship: No data available Phone: No data available --- Age: 73 years old Gender: MALE Chief Complaint: multiple complaints [facility] (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 reports int sharp stabbing cp [id number], slowly subsides on it's own when it occurs. denies sob, dizziness. c/o rash to BUE &BLE. disorientation at times, fatigue, 35pound weight loss in 6months. hair loss. agreed to ER eval. Safety Assessment: Are you living in a safe environment? Yes Are you carrying any weapons or contraband? No Past Medical History/Active Problems: JOSE GUADALUPE - Active Problems 19 Active Problems PROBLEM LAST MOD PROVIDER Inguinal hernia (SNOMED CT [id number]) 10/16/2017 EDILMA PAIGE Graves' Disease 09/23/2004 [facility] Chronic gingivitis 09/23/2004 [facility] Hypothyroidism * (ICD-9-CM 244.9) 09/26/2004 [facility] Anemia * (ICD-9-CM 285.9) 09/26/2004 [facility] Posttraumatic Stress Disorder * (ICD-9-CM 03/26/2005 [facility] 309.81) Dermatitis * (ICD-9-CM 692.9) 02/05/2006 NOAH KING Medical examinations/reports status 08/07/2017 KODWANI,RODNEY Hypothyroidism 08/07/2017 KODWANI,RODNEY Tobacco user 08/07/2017 KODWANI,RODNEY Backache 09/26/2019 KODWANI,RODNEY Eruption 12/15/2019 KODWANI,RODNEY Raised prostate specific antigen 11/14/2020 KODWANI,RODNEY Cough 11/14/2020 KODWANI,RODNEY Chest pain 02/14/2021 KODWANI,RODNEY Noncompliance with medication regimen 01/07/2023 KODWANI,RODNEY Chronic rhinitis 01/07/2023 KODWANI,RODNEY Ankle pain 04/09/2023 KODWANI,RODNEY Depressive disorder 04/09/2023 KODWANI,RODNEY Allergies/Adverse Reactions No allergy(ies) or New allergy(ies) reported by at this time. Current Medications: Active Outpatient Medications (including Supplies): DUPILUMAB 150MG/ML PEN INJ 2ML INJECT 600MG UNDER THE SKIN ACTIVE ONE-TIME FOR 14 DAYS, THEN INJECT 300MG/2ML EVERY 2 WEEKS FOR ATOPIC DERMATITIS *KEEP IN REFRIGERATOR* REMOVE FROM REFRIGERATOR 45 MIN BEFORE INJECTION. LEVOTHYROXINE NA (SYNTHROID) 150MCG TAB TAKE ONE TABLET BY ACTIVE MOUTH EVERY MORNING BEFORE A MEAL TAKE 30 MINUTES BEFORE FOOD. TAKE SEPARATELY FROM ALL OTHER MEDICATIONS. Vital Signs (Historical/Last 3): Measurement DT TEMP RESP PULSE BP POx F(C) (L/MIN)(%) 04/09/2023 14:37 97.6(36.4) 16 92 118/74 96 11/10/2022 13:55 97.5(36.4) 20 63 118/78 96 04/21/2022 10:09 98(36.7) 18 75 132/79 99 Measurement DT PAIN WEIGHT HEIGHT LB(KG)[BMI] IN(CM) 04/09/2023 14:37 7 143(64.86)[22] 67(170.18) 11/10/2022 13:55 0 150.3(68.17)[23] 04/21/2022 10:09 143(64.86)[22] Emergency Severity Index (RK) level: Level 3 Disposition: Referred to [place] Emergency Department Time Spent: 6minutes /vince/ DELTA COSTELLO RN REGISTERED NURSE Signed: 04/18/2024 10:21 Receipt Acknowledged By: 04/18/2024 12:12 /vince/ DENISE CARROLLN RN CCRN REGISTERED NURSE 04/18/2024 13:23 /vince/ SHELLY JOHN MSN,MACHINIST SUPERVISOR-BC NURSE PRACTITIONER for DELTA URBINA [facility]
--- OUTSIDE RECORDS SUMMARY | 2024-10-04 12:02 | XMS_ITS ---
Author Name [facility] Organization [facility] Address [address] [place] [address] Care Team Providers Care Smash Hand Name Role Phone RODNEY STONE Primary Care [...] PART B Nov 08, 2014 PART B [id number] CHARLES TOLENTINO PATIENT MEDICARE (WNR) MEDICARE (M) PART A Apr 10, 2013 PART A [id number] CHARLES TOLENTINO PATIENT Selected Encounter This section includes the information on record at OR for the Encounter. Date/Time Encounter Type Encounter Description Reason Provider Source Nov 02, 2023 03:35 PM Outpatient Encounter GENERAL INTERNAL MEDICINE LUZMA SHAIKH Encounter Template Text not used by OR Plan of Treatment: Future Appointments (+ 6 [...] 20 appointments. The data comes from all OR treatment facilities. Appointment Date/Time Appointment Type Appointme nt Facility Name Apr 18, 2024 10:56 AM AMBULATORY - MEDICINE [facility] May 03, 2024 10:00 AM AM[facility]ATORY - MEDICINE [facility] Social History: Smoking Status (Most current) and Tobacco Use (All prior to encounter date) This section includes the most current, and the historical, smoking and tobacco- related health factors from the OR facility where the Encounter took place. Current Smoking Status This section includes the most current smoking, or tobacco-related health factor, from the OR facility where the Encounter took place. 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 The data comes from the OR facility where the Encounter took place. Date/Time Smoking Status/Tobacco Use Comment F acility Dec 05, 2019 09:44 AM VA-TOBACCO USE ADVICE [facility] Dec 05, 2019 09:44 AM VA-TOBACCO USE COMPUTATIONAL SCIENCES PROFESSOR NO [facility] Dec 05, 2019 09:44 AM VA-TOBACCO USE MED NO [facility] Dec 05, 2019 09:44 AM VA-TOBACCO USE WI 30 MIN OF WAKEUP [facility] Dec 05, 2019 09:44 AM VA-TOBACCO USER EVERY DAY [facility] Encounter Notes: All associated encounter notes This section contains the clinical notes associated to the Encounter. Date/Time Encounter Note(s) Provider Source Nov 02, 2023 03:35 PM NONVA NOTE: LOCAL TITLE: COMMUNITY CARE-BLAKE SELF PRESENTING CARE COORD PLAN STANDARD TITLE: NONVA NOTE DATE OF NOTE: NOV 02, 2023@15:35 ENTRY DATE: NOV 02, 2023@15:35:57 AUTHOR: LUZMA SHAIKH EXP COSIGNER: URGENCY: STATUS: COMPLETED COMMUNITY CARE-BLAKE SELF PRESENTING CARE COORD PLAN [address]ENDA Emergency Notification Intake Date Presenting to the Facility: Oct Method of Contact: Notified from ECR worklist Notification ID: [id number] HSRM Referral #: [id number] Clinical Review [facility] Name: Hospital: [facility] Address: [address], [place] City: [place], State: [place] Zip Code: [address] Phone : Community Facility Point of Contact: Chief complaint: syncope Primary Diagnosis: Disposition Admitted Route of Admission: ER Date of Admission: Oct Admitting Diagnosis: awaiting faxed records [facility] UM team has been alerted to this continuing stay via daily [facility] Inpatient Report and/or What They Like message. Alerting PCP team to this note for continuity of care No records r/t this EOC found in [facility] or [facility]ed [facility] records to [facility] /vince/ LUZMA YU, RN REGISTERED NURSE Signed: 11/02/2023 15:43 Receipt Acknowledged By: 11/02/2023 16:17 /es/ DENISE YU RN CCRN REGISTERED NURSE 11/03/2023 10:53 /es/ Rodney Stone MD Staff Physician 11/02/2023 ADDENDUM STATUS: COMPLETED Date of Service 10.31.2023 /vince/ LUZMA YU RN REGISTERED NURSE Signed: 11/02/2023 15:47 11/04/2023 ADDENDUM STATUS: COMPLETED faxed second attempt for records, Spoke to [place] confirmed date of service, and they woudl work on getting us records /vince/ LUZMA YU RN REGISTERED NURSE Signed: 11/04/2023 16:02 11/26/2023 ADDENDUM STATUS: COMPLETED Third attempt . No records pertinent to this ER Visit found in [facility]. Faxed request for records to [facility]. /vince/ GIGI KU, RN REGISTERED NURSE Signed: 11/26/2023 07:58 12/02/2023 ADDENDUM STATUS: COMPLETED . 3RD ATTEMPT No records pertinent to this ER Visit found in [facility]. Faxed request for records to [facility]. /vince/ GIGI KU, RN REGISTERED NURSE Signed: 12/02/2023 09:18 01/27/2024 ADDENDUM STATUS: COMPLETED HSRM Referral ID: [id number] Status: Closed - Approved for 1703 /vince/ ANEESH BALBUENA [employer]VANCED SOCIAL MEDIA EXECUTIVE Signed: 01/27/2024 08:10 LUZMA SHAIKH [facility]
--- OUTSIDE RECORDS SUMMARY | 2024-10-04 12:02 | XMS_ITS ---
Author Name [facility] Organization [facility] Address [address] [place] [address] Care Team Providers Care Fixed Wing Aircraft Crew Chief Name Role Phone RODNEY STONE Primary Care [...] PART B Nov 08, 2014 PART B [id number] CHARLES TOLENTINO PATIENT MEDICARE (WNR) MEDICARE (M) PART A Apr 10, 2013 PART A [id number] CHARLES TOLENTINO PATIENT Selected Encounter This section includes the information on record at ID for the Encounter. Date/Time Encounter Type Encounter Description Reason Provider Source May 03, 2024 10:00 AM OFFICE O/P EST MOD 30 MIN PRIMARY CARE/MEDICINE ICD-10-CM R21 Rash and other nonspecific skin eruption HELEN CELESTIN Encounter Template Text not used by [facility] Assessments - Encounter Diagnoses This section includes the primary and secondary diagnoses documented for the Encounter. Date/Time Primary/Secondary Diagnosis Diagnosis Name Provider Source May 03, 2024 10:55 AM PRIMARY Rash and other nonspecific skin eruption HEELN CELESTIN R [facility] May 03, 2024 10:55 AM SECONDARY Atopic dermatitis, unspecified CINTIA CELESTINA R [facility] May 03, 2024 10:55 AM SECONDARY Low back pain, unspecified CINTIA CELESTINA R [facility] Plan of Treatment: Future Appointments (+ 6 months) and Future Tests (+/- 45 days) The Plan of Treatment section includes future care activities for the patient from [facility]. This section includes future appointments and future orders which are active, pending or scheduled. Future Appointments This section includes appointments that were scheduled to occur 6 months from the date of the Encounter, up to a maximum of 20 appointments. The data comes from all ID treatment facilities. Appointment Date/Time Appointment Type Appointme nt Facility Name Jun 13, 2024 02:30 PM AMBULATORY - MEDICINE [facility] Jul 14, 2024 02:30 PM AMBULATORY MEDICINE [facility] Lab Results: +/- 30 days of the encounter This section includes the Chemistry and Hematology Lab Results on record with ID for the patient. Radiology Reports and Pathology Reports are provided separately, in subsequent sections. Lab Results This section contains the Chemistry/Hematology Results that were resulted 30 days before or 30 daysafter the date of the Encounter. Date/Time Source Result Type Result - Unit Interpretation Reference Range Specimen Type Comment Apr 18, 2024 11:04 AM [facility] BRAIN NATRIURETIC PEPTIDE PLASMA Specimen Type : PLASMA No comment entered. Ordering Provider: MARQUES SANCHEZ Report Released Date/Time: Apr 18, 2024 10:59 AM Reporting Lab: [facility] [address] [facility] [phone] Performing Lab: [facility] [address] [facility] [address] BRAIN NATRIURETIC PEPTIDE 20.2 pg/mL 0-1 00 Apr 18, 2024 11:04 AM [facility] CBC BLOOD Specimen Type: BLOOD No comment entered. Ordering Provider: MARQUES SANCHEZ Report Released Date/Time: Apr 18, 2024 10:59 AM Reporting Lab: [place] [address] [facility] [address] Performing Lab: [place] [address] [facility] [address] WBC 7.9 10*3/uL 3.6-11.2 RBC 4.86 10*6/uL [...] 0.00-0. 20 Apr 18, 2024 11:04 AM [facility] APTT PLASMA Specimen Type: PLASM A No comment entered. Ordering Provider: MARQUES SANCHEZ Report Released Date/Time: Apr 18, 2024 10:59 AM Reporting Lab: [place] [address] [facility] [address] Performing Lab: [place] [address] [facility] [address] APTT 29.8 s 26.7-39.9 Apr 18, 2024 11:04 AM [facility] COMPREHENSIVE METABOLIC PANEL PLASMA Specimen Type: PLASMA Comment: No hemolysis noted. Ordering Provider: MARQUES SANCHEZ Report Released Date/Time: Apr 18, 2024 10:59 AM Reporting Lab: [address] [address] Performing Lab: [facility] [address] [facility] [address] CREATININE 1.02 mg/dL 0.7-1.3 UREA NITROGEN 11.7 [...] U/L 8-40 EGFR (CKD-EPI 2020) 76.6 >60 Apr 18, 2024 11:04 AM [facility] PT/INR NEW (STL-MA) PLASMA Specimen Type: PLAS MA No comment entered. Ordering Provider: MARQUES SANCHEZ Report Released Date/Time: Apr 18, 2024 10:59 AM Reporting Lab: [address] [address] Performing Lab: [address] [address] PROTIME 10.7 s 9.4-12.5 INR VALUE 1.0 {INR} Apr 18, 2024 11:04 AM [facility] TROPONIN I PLASMA Specimen Type: PLASM A Comment: No hemolysis noted. Ordering Provider: MARQUES SANCHEZ Report Released Date/Time: Apr 18, 2024 10:59 AM Reporting Lab: [address] [address] Performing Lab: [address] [address] TROPONIN I <0.010 ng/mL 0-0.033 Vital Signs: All taken on the encounter date This section contains inpatient and outpatient Vital Signs collected on the date of the Encounter. Date/Time Temperature Pulse Blood Pressure Respiratory Rate SP02 Pain Height Weight Body Mass Index Source May 03, 2024 10:05 AM 62 126/76 17 98 9 [facility] Social History: Smoking Status (Most current) and Tobacco Use (All prior to encounter date) This section includes the most current, and the historical, smoking and tobacco- related health factors from the ID facility where the Encounter took place. Current Smoking Status This section includes the most current smoking, or tobacco-related health factor, from the ID facility where the Encounter took place. Date/Time Current Smoking Status Comment Facil ity Apr 09, 2023 02:30 PM VA-TOBACCO DOESNT USE WI 30 MIN WAKEUP [facility] Tobacco Use History This section includes a history of the smoking, or tobacco-related health factors, that were collected on or before the date of the Encounter. The data comes from the ID facility where the Encounter took place. Date/Time Smoking Status/Tobacco Use Comment F acility Apr 09, 2023 02:30 PM VA-TOBACCO USE 30 YEARS OR MORE [facility] Apr 09, 2023 02:30 PM VA-TOBACCO USE ADVICE [facility] Apr 09, 2023 02:30 PM VA-TOBACCO USE CONFERENCE INTERPRETER NO [facility] Apr 09, 2023 02:30 PM VA-TOBACCO USE MED NO [facility] Apr 09, 2023 02:30 PM VA-TOBACCO USER EVERY DAY [facility] Mar 04, 2022 02:00 PM VA-TOBACCO USE 30 YEARS OR MORE [facility] Mar 04, 2022 02:00 PM VA-TOBACCO USE ADVICE [facility] Mar 04, 2022 02:00 PM VA-TOBACCO USE CONFERENCE INTERPRETER NO [facility] Mar 04, 2022 02:00 PM VA-TOBACCO USE MED NO [facility] Mar 04, 2022 02:00 PM VA-TOBACCO USE WI 30 MIN OF WAKEUP [facility] Mar 04, 2022 02:00 PM VA-TOBACCO USER EVERY DAY [facility] Feb 14, 2021 01:00 PM VA-TOBACCO USE 30 YEARS OR MORE [facility] Feb 14, 2021 01:00 PM VA-TOBACCO USE ADVICE [facility] Feb 14, 2021 01:00 PM VA-TOBACCO USE CONFERENCE INTERPRETER NO [facility] Feb 14, 2021 01:00 PM VA-TOBACCO USE MED NO [facility] Feb 14, 2021 01:00 PM VA-TOBACCO USE WI 30 MIN OF WAKEUP [facility] Feb 14, 2021 01:00 PM VA-TOBACCO USER EVERY DAY [facility] Aug 03, 2017 09:42 AM CURRENT TOBACCO USER [facility] Aug 03, 2017 09:42 AM CURRENT TOBACCO US ER (READY TO QUIT) [facility] Aug 03, 2017 09:42 AM TOBACCO CESSATION REFERRAL DECLINED [facility] Aug 03, 2017 09:42 AM TOBACCO USER OFFERED MEDS [facility] Radiology Reports: +/- 30 days of the [...] the Encounter. The data comes from all ID treatment facilities. Date/Time Radiology Report Provider Source Apr 18, 2024 11:00 AM CHEST PORTABLE: LILIANA TOLENTINO [id number] -[id number] Ex Date: APR 18, 2024@11:00 Req Phys: MARQUES SANCHEZ Loc: [facility] DATA ARCHITECT (Req'g Img Loc: [facility] SUITE Service: [facility], [facility] [address] [place] [address] (Case [id number] COMPLETE) CHEST PORTABLE (RAD Detailed) CPT:03459 Proc Modifiers : Portable Reason for Study: chest pain Clinical History: Report Status: Verified Date Reported: APR 18, 2024 Date Verified: APR 18, 2024 Director Dietetics Department E-Sig:/ES/Luis Dickson MD Report: CHEST PORTABLE CASE #: [id number] DATE:04/18/2024 12:07 PM CLINICAL HISTORY:chest pain COMPARISON: 09/07/2017 TECHNIQUE: CHEST PORTABLE Impression: FINDINGS/IMPRESSION: Left basilar atelectasis versus less likely pneumonia. Heart size within normal limits. No CHF. Pleural effusion. No pneumothorax. No fractures. Primary Interpreting Staff: Luis Dickson MD, Radiologist (Director Dietetics Department) /LUIS BURGER [facility] Encounter Notes: All associated encounter notes This section contains the clinical notes associated to the Encounter. Date/Time Encounter Note(s) Provider Source May 03, 2024 10:06 AM NURSING NOTE: LOCAL TITLE: V15 PACT FACE TO FACE NOTE ST STANDARD TITLE: NURSING NOTE DATE OF NOTE: MAY 03, 2024@10:06 ENTRY DATE: MAY 03, 2024@10:07:04 AUTHOR: LUCIANA AVENDAÑO COSIGNER: URGENCY: STATUS: COMPLETED RN SBAR for Unscheduled Patients: S: Situation (brief statement of chief complaint): Backpain- for years, 01/18. 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 He states he takes ASA and tylenol and hasn't taken it in a couple days, has not tried heating pad or ice on it. Only tylenol and ASA and last time he took tylenol, it was 3 days ago. Tylenol does allievate the pain.Its progessively getting worse. Also has a rash on bilateral arms and left lower leg- states he has been to dermatology before, does not have any medications. Also states that, that at work, he has some chest pains, does not have any pain right now and never when he's not at work. He went via EMS to and he states nothing was wrong. Went to earlier this month. December was last dermatology visit, wanted to see him 3 months later, has not followed up. wStates the medications did help some, did not clear up everything. B: Background (precipitating/alleviating factors, etc.): Previously went to dermatology for the rash. Has large patches, lower leg is bleeding as he has been stracthing it d/t ithcing A: Assessment (using nursing process but focusing on presenting complaint): Vitals: VSD - Detailed Vitals Date Vital Measurement Qualifiers 05/03/2024 10:05 Pulse 62 Respir 17 BP 126/76 Pain 9 POx (L/Min)(%) 98 04/18/2024 11:13 Temp F (C) 98.8 (37.1) R: Recommendation (what is RNCM going to do; intervention, warm handoff to Provider, ADOLESCENT COORDINATOR, etc.): Warm handoff to same day provider to be seen Team members that were notified of status: Rayray Celestin /vince/ LUCIANA AVENDAÑO RN MSN REGISTERED NURSE Signed: 05/03/2024 10:14 LUCIANA AVENDAÑO [facility] May 03, 2024 10:04 AM PRIMARY CARE NOTE: LOCAL TITLE: PRIMARY CARE PROVIDER ESTABLISHED VISIT STL STANDARD TITLE: PRIMARY CARE NOTE DATE OF NOTE: MAY 03, 2024@10:04 ENTRY DATE: MAY 03, 2024@10:04:55 AUTHOR: HELEN CELESTIN EXP COSIGNER: URGENCY: STATUS: COMPLETED PRIMARY CARE PROVIDER ESTABLISHED VISIT STL Has ADDENDA REASON FOR VISIT/CHIEF COMPLAINT: low back pain, rash HPI: 74 year old MALE [facility] pain and rash low back pain- rates it 01/18 takes tylenol occassional which helps but he does not have any more supply. pain is worst when changing positions or bending over. 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 Denies bowel or bladder incontinence, paresthesia, saddle anesthesia. Has long issue with eczema and has followed with derm, last seen by derm 06/2023. has dry, flaking, ithinng rash with scaliing and thickened skin to bilat UE and LE. Has some excoriation and scabbing to bilat legs dt scratching. Reports rash is improved when he uses moisturizing cream and steroid creams that he has been rxd by derm, he has been out of these txs for awhile tho. Was tx with dupixent which he reports helped but he has not had consistent access to a refrigerator lately (currently living in a hotel) so he has not been using this med. SOURCE(S) OF HISTORY: Patient PAST MEDICAL HISTORY: 1) Inguinal hernia (SNOMED CT [id number]) 2) Graves' Disease 3) Chronic gingivitis 4) Hypothyroidism * (ICD-9-CM 244.9) 5) Anemia * (ICD-9-CM 285.9) 6) Posttraumatic Stress Disorder * (ICD-9-CM 309.81) 7) Dermatitis * (ICD-9-CM 692.9) 8) Medical examinations/reports status 9) Hypothyroidism 10) Tobacco user 11) Back pain 12) Rash 13) Elevated PSA 14) Cough 15) Chest pain 16) Noncompliance with medication regimen 17) Chronic rhinitis 18) Ankle pain 19) Depression ALLERGIES: Patient has answered NKA ALLERGY REVIEW: Allergy list reviewed and remains current. MEDICATIONS: Active and Recently Outpatient Medications (excluding Supplies): Active Outpatient Medications Status 1) DUPILUMAB 150MG/ML PEN INJ 2ML INJECT 600MG UNDER THE SKIN ACTIVE ONE-TIME FOR 14 DAYS, THEN INJECT 300MG/2ML EVERY 2 WEEKS *KEEP IN REFRIGERATOR* REMOVE FROM REFRIGERATOR 45 MIN BEFORE INJECTION. Indication: FOR ATOPIC DERMATITIS 2) LEVOTHYROXINE NA (SYNTHROID) 150MCG TAB TAKE ONE TABLET BY ACTIVE MOUTH EVERY MORNING BEFORE A MEAL TAKE 30 MINUTES BEFORE FOOD. TAKE SEPARATELY FROM ALL OTHER MEDICATIONS. Indication: FOR HYPOTHYROIDISM REVIEW OF SYSTEMS: GENERAL: Denies fever, chills ENT: denies nasal congestion, sore throat RESP: Denies SOB, cough, wheezing CV: Denies chest pain, palpitations GI: Denies n/v/d, no constipation, abd pain, M/S: Denies joint pain, swelling, ++low back pain. : Denies dysuria, hematuria, incontinence SKIN: ++rash to bilat UE and LE ++scalp hair loss and easily breaking NEURO: Denies SELF, weakness, paresthesia PSYCHIATRIC: Denies SI/HI HEME/LYMPH: Denies bleeding, bruising, lymphadenopathy PHYSICAL EXAMINATION: VITALS (most recent, as listed in the electronic record): Temperature: 98.8 F [37.1 C] (04/18/2024 11:13) BP: 126/76 (05/03/2024 10:05) Pulse: 62 (05/03/2024 10:05) Resp: 17 (05/03/2024 10:05) PulsOx: 98% (05/03/2024 10:05) Pain: 9 (05/03/2024 10:05) Weight: No data available for: WEIGHT GENERAL: In no acute distress, non-toxic appearance, CHEST: lungs CTA bilaterally, no wheezes, non-labored CV: RRR, no murmur ABD/GI: Soft, nontender, non-distended, M/S: No deformities. No swelling, erythema to joints. no Tenderness to musculature along lumbar spine with palpation, no palpable deformities or step offs noted. Push/pulls equal and strong. EXTREMITIES: No edema, normal pedal pulses bilaterally : Deferred SKIN: ++thickened plaques to bilat shins, biceps and forams, significant xerosis, evidnece of excoriation to bilat shins NEURO: Alert, oriented to person, place, and time. Fascial muscles symmetrical. Speech clear PSYCHIATRIC: pleasant and cooperative. Mood and affect normal. ASSESSMENT/PLAN: #LBP -chronic, w/o radiculopathy, no red flag -ordered tylenol and naproxen. medication moa, direction and adverse effects reviewed with pt. -declined PT consult -Pt edu on lifestyle mods: proper body mechanics & wt management #Atopic Dermatitis/Eczema- severe #xerosis -uncontrolled -Regular use of emollients, especially after bathing Eucerin- ordered -consider wet wrap after application of emollient -triamcinolone ordered. medication moa, direction and adverse effects reviewed with pt. -Adequate oral hydration encouraged -Cotton clothing encouraged -Bath in tepid water, avoid hot showed or baths -strongly advised pt to arrange fu with derm (he is an established pt, last saw 06/2023), provided pt with # for derm clinic #unstable housing -currently living in hotel -[facility] for fu Immunizations: Immunization Series Date Facility Reaction Info COVID-19 (PFIZER), MRNA, LNP-S, * 1 03/04/2022 [facility] <C> COVID-19 (PFIZER), MRNA, LNP-S, * 2 08/14/2020 [facility] COVID-19 (PFIZER), MRNA, LNP-S, * 1 07/24/2020 [facility] COVID-19 (PFIZER), MRNA, LNP-S, * 1 04/09/2023 [facility] INFLUENZA, ADJUVANTED, QUADRIVAL* 03/04/2022 [facility] INFLUENZA, ADJUVANTED, QUADRIVAL* 02/14/2021 [facility] INFLUENZA, HIGH-DOSE, QUADRIVALE* C 04/09/2023 [facility] INFLUENZA, SPLIT VIRUS, QUADRIVA* 08/07/2017 [facility] INFLUENZA, UNSPECIFIED FORMULATI* 03/23/2006 [facility] INFLUENZA, UNSPECIFIED FORMULATI* 03/26/2005 [facility] TD(ADULT) UNSPECIFIED FORMULATION 09/23/2004 [facility] TDAP 08/07/2017 [facility] <C> RETURN TO CLINIC: routine fu with PCP in 1-2 months No future appointments SUMMARY STATEMENT: Plan of care has been discussed with including expected therapeutic benefits and potential side effects of prescribed medication and treatments. Mascot verbalizes understanding and is in agreement with the plan of care. Patient was instructed to keep all scheduled appointments and contact manager motor for any additional problems. 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 Denies chest pain today. no associated SOB, n/v. He reports he thinks it is related to stress. Had stress/echo 2020 which recommended additinoal testing (see below). Discussed this with pt. He defers any additional testing at this time Conclusion Submaximal stress test 2020 The test was stopped because near-syncope with feeling of flushing. Patient has no chest pain during the stress test The blood pressure response to stress was abnormal - hypotensive. His peak blood pressure was 200/68 with patient reporting severe dizziness with following BP of 105/73, which increased to 117/72 at the end of test. Resting ECG: Sinus rhythm. No left ventricular hypertrophy or pathologic Q's. No ST-T abnormalities. Exercise EKG: The ECG showed no ischemic ST-T wave changes. There is no new arrhythmias during stress test with isolated premature ventricular contractions Baseline Echo: Normal left ventricular systolic function, without any regional wall motion abnormalities or left ventricular outflow obstruction. Post exercise Echo: The images were taken at HR 80-90 bpm without obvious regional wall motion abnormalities and normal systolic function, LV EF 65-70% The etiology of his extreme dizziness is not clear but may have been due to hypotensive response to exercise. Recommend different ischemic evaluation with either dobutamine stress Echo or pharma MPI. Would also recommend that pt be evaluated for other causes of near syncope, such as hypoglycemia and/or carotid disease and/or other. /vince/ HELEN CELESTIN NP MSN, PORTRAIT PAINTER, REGIONAL ENVIRONMENTAL MANAGER-BC Signed: 05/03/2024 12:26 HELEN CELESTIN [facility]
--- OUTSIDE RECORDS SUMMARY | 2024-10-04 12:02 | XMS_ITS | Encounter Summary ---
Author Name [facility] [place] [facility] [place] [facility] [place] [facility] [place] Address [address] [place] [address] Care Team Providers Care Machine Etcher Name Role Phone RODNEY MILLS Primary Care Provider Unavailabl e Insurance Providers: [...] PART B Nov 08, 2014 PART B [id number] CHARLES LOPEZ PATIENT MEDICARE (WNR) MEDICARE (M) PART A Apr 10, 2013 PART A [id number] CHARLES LOPEZ PATIENT Selected Encounter This section includes the information on record at [place] for the Encounter. Date/Time Encounter Type Encounter Description Reason Provider Source Jun 13, 2024 02:30 PM OFFICE O/P EST MOD 30 MIN PRIMARY CARE/MEDICINE ICD-10-CM E03.9 Hypothyroidism, unspecified RODNEY MILLS Encounter Template Text not used by [place] Assessments - Encounter Diagnoses This section includes the primary and secondary diagnoses documented for the Encounter. Date/Time Primary/Secondary Diagnosis Diagnosis Name Provider Source Jun 14, 2024 09:07 AM PRIMARY Hypothyroidism, unspecified [facility] Jun 14, 2024 09:07 AM SECONDARY Abnormal weight loss [facility] Jun 14, 2024 09:07 AM SECONDARY Depression, unspecified [facility] Jun 14, 2024 09:07 AM SECONDARY Elevated prostate specific antigen [PSA] [facility] Jun 14, 2024 09:07 AM SECONDARY Other chest pain [facility] Jun 14, 2024 09:07 AM SECONDARY Other specified nonscarring hair loss [facility] Jun 14, 2024 09:07 AM SECONDARY Tobacco use [facility] Plan of Treatment: Future Appointments (+ 6 months) and Future Tests (+/- 45 days) The Plan of Treatment section includes future care activities for the patient from all [facility]. This section includes future appointments and future orders which are active, pending or scheduled. Future Appointments This section includes appointments that were scheduled to occur 6 months from the date of the Encounter, up to a maximum of 20 appointments. The data comes from all [facility] facilities. Appointment Date/Time Appointment Type Appointme nt Facility Name Jul 14, 2024 02:30 PM AMBULATORY - MEDICINE [facility] Lab Results: +/- 30 days of the encounter This section includes the Chemistry and Hematology Lab Results on record with [place] for the patient. Radiology Reports and Pathology Reports are provided separately, in subsequent sections. Lab Results This section contains the Chemistry/Hematology Results that were resulted 30 days before or 30 daysafter the date of the Encounter. Date/Time Source Result Type Result - Unit Interpretation Reference Range Specimen Type Comment Jun 13, 2024 03:43 PM [facility] HGA1C BLOOD Specimen Type: BLOOD No comment entered. Ordering Provider: RODNEY MILLS Report Released Date/Time: Jun 13, 2024 03:24 PM Reporting Lab: [facility] [address] [facility] [id number] Performing Lab: [facility] [address] [place] [address] HGA1C 5.6 4.0-6.0 Jun 13, 2024 03:43 PM [facility] TSH (MA-PB) SERUM Specimen Type: SERUM Comment: The listed sex of this patient may not be a typical indication for this test. Therefore, reference ranges or interpretive criteria listed may not be valid. Clinical correlation suggested. Ordering Provider: RODNEY MILLS Report Released Date/Time: Jun 13, 2024 03:24 PM Reporting Lab: [facility] [address] [place] [address] Performing Lab: [facility] [address] [place] [address] TSH 3.843 u[IU]/mL 0.470-5.000 Jun 13, 2024 03:43 PM [facility] PROST. SPECIFIC AG.(PB-STL) SERUM Specimen Ty pe: SERUM Comment: The listed sex of this patient may not be a typical indication for this test. Therefore, reference ranges or interpretive criteria listed may not be valid. Clinical correlation suggested. Ordering Provider: RODNEY MILLS Report Released Date/Time: Jun 13, 2024 03:24 PM Reporting Lab: [facility] [place] [address] Performing Lab: [facility] [address] [place] [address] PROST. SPECIFIC AG.(PB-STL) 7.178 ng/mL H 0.000-4.000 Jun 13, 2024 03:43 PM [facility] LIPID PANEL (STL) PLASMA Specimen Type: PLASM A Comment: No hemolysis noted. Ordering Provider: RODNEY MILLS Report Released Date/Time: Jun 13, 2024 03:24 PM Reporting Lab: [facility] [place] [address] Performing Lab: [facility] [address] [place] [address] CHOLESTEROL 97 mg/dL 0-200 TRIGLYCERIDE 143 mg/dL 0-150 CALCULATED LDL 28 mg/dL See Interp HDL(New) 40 mg/dL > 40 Jun 13, 2024 03:43 PM [facility] COMPREHENSIVE METABOLIC PANEL PLASMA Specimen Type: PLASMA Comment: No hemolysis noted. Ordering Provider: RODNEY MILLS Report Released Date/Time: Jun 13, 2024 03:30 PM Reporting Lab: [facility] [facility] [id number] Performing Lab: [facility] [address] [facility] [address] CREATININE 1.09 mg/dL 0.70-1.30 UREA NITROGEN 11.1 mg/dL 9.0-25.0 GLUCOSE 85 mg/dL 72-99 SODIUM 135 meq/L L 136-145 POTASSIUM 4.1 meq/L 3.5-5.0 CHLORIDE 100 meq/L 98-107 CARBON DIOXIDE 27 meq/L 22-31 CALCIUM 8.9 mg/dL 8.4-10.4 PROTEIN 6.7 g/dL 6.0-8.6 ALBUMIN 3.9 g/dL 3.4-5.0 TOTAL BILIRUBIN 0.2 mg/dL 0.2-1.2 ALKALINE PHOSPHATASE 49 U/L 40-150 AST/SGOT 20 U/L 5-34 ALT/SGPT 10 U/L 8-40 EGFR (CKD-EPI 2020) 70.34 >60 Jun 13, 2024 03:43 PM [facility] CBC BLOOD Specimen Type: BLOOD No comment entered. Ordering Provider: RODNEY MILLS Report Released Date/Time: Jun 13, 2024 03:30 PM Reporting Lab: [facility] [facility] [id number] Performing Lab: [facility] [address] [facility] [address] WBC 8.0 10*3/uL 3.6-11.2 RBC 4.54 10*6/uL 4.10-5.70 HGB 14.4 g/dL 13.1-16.8 HCT 40.7 38.2-48.4 MCV 89.6 fL 80.0-100.0 MCH 31.7 pg 27.0-34.0 MCHC 35.4 g/dL 33.0-36.0 PLT 184 10*3/uL 150-400 MPV 10.0 fL 7.5-11.2 RDW 12.1 11.8-15.1 LYMPHOCYTES, AUTO % 22 MONOCYTES, AUTO % 11 NEUTROPHILS, AUTO % 65 EOSINOPHILS, AUTO % 2 BASOPHILS, AUTO % 0 LYMPHOCYTES, ABSOLUTE 1.77 10*3/uL 0.77- 4.50 MONOCYTES, ABSOLUTE 0.90 10*3/uL H 0.19-0. 80 NEUTROPHILS, ABSOLUTE 5.20 10*3/uL 2.10- 8.00 EOSINOPHILS, ABSOLUTE 0.13 10*3/uL 0.00- 0.60 BASOPHILS, ABSOLUTE 0.02 10*3/uL 0.00-0. 20 Vital Signs: All taken on the encounter date This section contains inpatient and outpatient Vital Signs collected on the date of the Encounter. Date/Time Temperature Pulse Blood Pressure Respiratory Rate SP02 Pain Height Weight Body Mass Index Source Jun 13, 2024 03:05 PM 97.4 80 105/65 16 96 0 129 20 [facility] Social History: Smoking Status (Most current) and Tobacco Use (All prior to encounter date) This section includes the most current, and the historical, smoking and tobacco- related health factors from the [place] facility where the Encounter took place. Current Smoking Status This section includes the most current smoking, or tobacco-related health factor, from the [place] facility where the Encounter took place. Date/Time Current Smoking Status Comment Brigida ity Jun 13, 2024 02:30 PM VA-TOBACCO NEVER U SED OTHER TYPE [facility] Tobacco Use History This section includes a history of the smoking, or tobacco-related health factors, that were collected on or before the date of the Encounter. The data comes from the [place] facility where the Encounter took place. Date/Time Smoking Status/Tobacco Use Comment F acility Jun 13, 2024 02:30 PM VA-TOBACCO USE CATIE RY DAY CIGARETTES [facility] Apr 09, 2023 02:30 PM VA-TOBACCO DOESNT USE WI 30 MIN WAKEUP [facility] Apr 09, 2023 02:30 PM VA-TOBACCO USE 30 YEARS OR MORE [facility] Apr 09, 2023 02:30 PM VA-TOBACCO USE ADVICE [facility] Apr 09, 2023 02:30 PM VA-TOBACCO USE COLLEGE HIRE NO [facility] Apr 09, 2023 02:30 PM VA-TOBACCO USE MED NO [facility] Apr 09, 2023 02:30 PM VA-TOBACCO USER EVERY DAY [facility] Mar 04, 2022 02:00 PM VA-TOBACCO USE 30 YEARS OR MORE [facility] Mar 04, 2022 02:00 PM VA-TOBACCO USE ADVICE [facility] Mar 04, 2022 02:00 PM VA-TOBACCO USE COLLEGE HIRE NO [facility] Mar 04, 2022 02:00 PM VA-TOBACCO USE MED NO [facility] Mar 04, 2022 02:00 PM VA-TOBACCO USE WI 30 MIN OF WAKEUP [facility] Mar 04, 2022 02:00 PM VA-TOBACCO USER EVERY DAY [facility] Feb 14, 2021 01:00 PM VA-TOBACCO USE 30 YEARS OR MORE [facility] Feb 14, 2021 01:00 PM VA-TOBACCO USE ADVICE [facility] Feb 14, 2021 01:00 PM VA-TOBACCO USE COLLEGE HIRE NO [facility] Feb 14, 2021 01:00 PM VA-TOBACCO USE MED NO [facility] Feb 14, 2021 01:00 PM VA-TOBACCO USE WI 30 MIN OF WAKEUP [facility] Feb 14, 2021 01:00 PM VA-TOBACCO USER EVERY DAY [facility] Aug 03, 2017 09:42 AM CURRENT TOBACCO USER [facility] Aug 03, 2017 09:42 AM CURRENT TOBACCO US ER (READY TO QUIT) [facility] Aug 03, 2017 09:42 AM TOBACCO CESSATION REFERRAL DECLINED [facility] Aug 03, 2017 09:42 AM TOBACCO USER OFFERED MEDS [facility] Encounter Notes: All associated encounter notes This section contains the clinical notes associated to the Encounter. Date/Time Encounter Note(s) Provider Source Aug 21, 2024 06:11 PM ADDENDUM: LOCAL TITLE: Addendum STANDARD TITLE: ADDENDUM DATE OF NOTE: AUG 21, 2024@18:11:49 ENTRY DATE: AUG 21, 2024@18:11:50 AUTHOR: RODNEY MILLS COSIGNER: URGENCY: STATUS: COMPLETED please call with the cardiology recommendation about the stress test. /vince/ Rodney Mills MD Staff Physician Signed: 08/21/2024 18:12 Receipt Acknowledged By: 08/24/2024 15:20 /vince/ DENISE AGUIRRE BSN RN CCRN REGISTERED NURSE --- Original Document --- 06/13/24 PRIMARY CARE PROVIDER ESTABLISHED VISIT STL: Reason for visit:Scheduled follow-up ESTABLISHED PATIENT [id number]: 74 years old male CC / HPI : routine f/u visit on chronic conditions. is compliance with his medication now. is here with his friend today. According he is staying in hotel currently. Requesting refill on medication. Complaining of scalp hair loss since few months. is complaining of both sides of chest pain on and off since few months pain last few minute, happen daily few times. According to and his friend that this is most likely stressful job situation. is complaining of cold symptoms with cough, sore throat, runny nose and sinus pressure since few days. Taking NyQuil from fozi-top-xndehga. Unintentional weight loss since last visit, complaining of poor appetite, denies any blood in the stool. has no teeth since his service time. Denies any other complaint today. Allergies: NKDA Social History : Tobacco : < 1 PPD ETHO : 4-5 beers daily drugs :no Blood Transfusion : no Tattoo : no Living situation : with spouse Work : no ROS : GENERAL: no fever, no chills PULMONARY: Denies SOB and wheezing CARDIAC: denies palpitations GI: no nausea, no vomiting, no abd: pain, no diarrhea, no constipation EXT: denies pedal edema, no arthritis NEURO : no dizziness, no headache Physical exam : GENERAL: pleasant HEART: S1, S2 WNL, CHEST/LUNGS: Clear to auscultation bilaterally. ABDOMEN: soft, nontender EXTREMITIES: feet and ankles without edema, peripheral pulses intact. NEUROLOGICAL: not in acute distress ASSESSMENT/PLAN: The patient's most recent medication list were reviewed in detail with the patient. - Weight loss: Plan for lab and GI consult. - Acute bronchitis: Plan for benzonatate and Z-Sohail for now. Call us back in few days or go to ER if symptoms does not improve. - Chest pain: Plan for EKG and stress test. - Scalp hair loss: Dermatology consult done. - eczematous dermatitis: Follows with dermatology - Elevated PSA: Follows with urology - Hypothroid : cont's levo: to 150 mcg daily. refill done - Tobacco use : counselling was done again. LD CT Scan was done 08/2022, order done. - Alcohol use: Counseling was done in detail again today. - Depression: No SI, no HI. Refused to see mental health provider. According to to he is talking to his friend about this. Plan: cont's meds. Refill done.need to bring all medication bottles at next visit. Medications list updated with patient today. lab today RTC in 1 months visit pt is asymtomatic now If any Chest pain, ,SOB, headache, dizziness, Blurring of vision,or or worsening of symptoms call 911 or go to ER. Health Maintance : PSA : 2022 Colonoscopy : February 2023, repeat in 3-year Taunts Shot : 2018 Pneumovax : Refused ZOSTER : Refused Patient understands to call nurse coordinator if any new concerns, and go to the emergency room for any acute problem(s). Patient voices understanding and agrees with plan of care. Medication Reconciliation Opt STL: I have reviewed the patient's medication list (including active outpatient prescriptions dispensed from this [facility] (local) and dispensed from another [facility] or [facility] facility (remote) as well as inpatient orders (local pending and active), local clinic medications, locally documented non-VA medications, and local prescriptions that have or been discontinued in the past 90 days.) with the patient and/or his/her care-cto. Handwritten corrections, additions and/or deletions were made to the list, as appropriate. Corrected Outpatient Medication List was provided to the patient/caregiver. /bg Mills MD Staff Physician Signed: 06/14/2024 09:08 06/14/2024 ADDENDUM STATUS: COMPLETED please mail the lab letter. /bg Mills MD Staff Physician Signed: 06/14/2024 09:09 Receipt Acknowledged By: 06/15/2024 08:26 /bg RODRIGUES MSA 06/14/2024 ADDENDUM STATUS: COMPLETED Elevated PSA: need to see urology for follow-up. /bg Mills MD Staff Physician Signed: 06/14/2024 09:15 Receipt Acknowledged By: 07/29/2024 12:39 /bg AGUIRRE BSN RN CCRN REGISTERED NURSE 06/14/2024 ADDENDUM STATUS: COMPLETED please mail the lab letter. /bg Mills MD Staff Physician Signed: 06/14/2024 09:16 Receipt Acknowledged By: 06/15/2024 08:26 /RODNEY Lynch MSA [facility] Jun 14, 2024 09:15 AM ADDENDUM: LOCAL TITLE: Addendum STANDARD TITLE: ADDENDUM DATE OF NOTE: JUN 14, 2024@09:15:09 ENTRY DATE: JUN 14, 2024@09:15:10 AUTHOR: RODNEY MILLS EXP COSIGNER: URGENCY: STATUS: COMPLETED please mail the lab letter. /bg Mills MD Staff Physician Signed: 06/14/2024 09:16 Receipt Acknowledged By: 06/15/2024 08:26 /bg RODRIGUES MSA --- Original Document --- 06/13/24 PRIMARY CARE PROVIDER ESTABLISHED VISIT STL: Reason for visit:Scheduled follow-up ESTABLISHED PATIENT YOHD-NP-ZHQN: 74 years old male CC / HPI : routine f/u visit on chronic conditions. Isma is compliance with his medication now. is here with his friend today. According he is staying in hotel currently. Requesting refill on medication. Complaining of scalp hair loss since few months. [place] is complaining of both sides of chest pain on and off since few months pain last few minute, happen daily few times. According to and his friend that this is most likely stressful job situation. [place]ell is complaining of cold symptoms with cough, sore throat, runny nose and sinus pressure since few days. Taking NyQuil from okho-yoq-xlsmqgw. Unintentional weight loss since last visit, complaining of poor appetite, denies any blood in the stool. has no teeth since his service time. Denies any other complaint today. Allergies: NKDA Social History : Tobacco : < 1 PPD ETHO : 4-5 beers daily drugs :no Blood Transfusion : no Tattoo : no Living situation : with spouse Work : no ROS : GENERAL: no fever, no chills PULMONARY: Denies SOB and wheezing CARDIAC: denies palpitations GI: no nausea, no vomiting, no abd: pain, no diarrhea, no constipation EXT: denies pedal edema, no arthritis NEURO : no dizziness, no headache Physical exam : GENERAL: pleasant HEART: S1, S2 WNL, CHEST/LUNGS: Clear to auscultation bilaterally. ABDOMEN: soft, nontender EXTREMITIES: feet and ankles without edema, peripheral pulses intact. NEUROLOGICAL: not in acute distress ASSESSMENT/PLAN: The patient's most recent medication list were reviewed in detail with the patient. - Weight loss: Plan for lab and GI consult. - Acute bronchitis: Plan for benzonatate and Z-Sohail for now. Call us back in few days or go to ER if symptoms does not improve. - Chest pain: Plan for EKG and stress test. - Scalp hair loss: Dermatology consult done. - eczematous dermatitis: Follows with dermatology - Elevated PSA: Follows with urology - Hypothroid : cont's levo: to 150 mcg daily. refill done - Tobacco use : counselling was done again. LD CT Scan was done 08/2022, order done. - Alcohol use: Counseling was done in detail again today. - Depression: No SI, no HI. Refused to see mental health provider. According to to he is talking to his friend about this. Plan: cont's meds. Refill done.need to bring all medication bottles at next visit. Medications list updated with patient today. lab today RTC in 1 months visit pt is asymtomatic now If any Chest pain, ,SOB, headache, dizziness, Blurring of vision,or or worsening of symptoms call 911 or go to ER. Health Maintance : PSA : 2022 Colonoscopy : February 2023, repeat in 3-year Taunts Shot : 2017 Pneumovax : Refused ZOSTER : Refused Patient understands to call nurse coordinator if any new concerns, and go to the emergency room for any acute problem(s). Patient voices understanding and agrees with plan of care. Medication Reconciliation Opt STL: I have reviewed the patient's medication list (including active outpatient prescriptions dispensed from this [facility] (local) and dispensed from another [place] or [place] facility (remote) as well as inpatient orders (local pending and active), local clinic medications, locally documented non-VA medications, and local prescriptions that have or been discontinued in the past 90 days.) with the patient and/or his/her care-cto. Handwritten corrections, additions and/or deletions were made to the list, as appropriate. Corrected Outpatient Medication List was provided to the patient/caregiver. /bg Mills MD Staff Physician Signed: 06/14/2024 09:08 06/14/2024 ADDENDUM STATUS: COMPLETED please mail the lab letter. /bg Mills MD Staff Physician Signed: 06/14/2024 09:09 Receipt Acknowledged By: 06/15/2024 08:26 /vince/ TAMIA RODRIGUES MSA 06/14/2024 ADDENDUM STATUS: COMPLETED Elevated PSA: Gambell need to see urology for follow-up. /bg Mills MD Staff Physician Signed: 06/14/2024 09:15 Receipt Acknowledged By: * AWAITING SIGNATURE * DENISE [facility]IRRE [facility] Jun 14, 2024 09:15 AM PHYSICIAN LETTERS: LOCAL TITLE: TEST RESULT GENERAL LETTER STL STANDARD TITLE: PHYSICIAN LETTERS DATE OF NOTE: JUN 14, 2024@09:15 ENTRY DATE: JUN 14, 2024@09:15:25 AUTHOR: RODNEY MILLS COSIGNER: URGENCY: STATUS: COMPLETED [facility] [address] [place] [address] JUN 14, 2024 LENNY LOPEZ [address], [place] [address] Dear Lenny Lopez, I would like to update you on your recent test results. LIPID PROFILE - High cholesterol and triglycerides (lipids) are risk factors for heart disease. Your cholesterol should fall between 140 and 200, and your triglycerides levels should be less than or equal to 150. HDL is the good cholesterol and should ideally be greater than 40. LDL is the bad cholesterol and optimal levels should be less than 100 (near optimal is between 100 and 129). TRIGLYCERIDE 143 mg/dL 06/13/2024 15:44 CHOLESTEROL 97 mg/dL 06/13/2024 15:44 HDL(New) 40 mg/dL 06/13/2024 15:44 CALCULATED LDL 28 mg/dL 06/13/2024 15:44 No DIRECT LDL EO data found These readings are within normal limits. GLUCOSE - Your blood sugar or glucose level result GLUCOSE GLUCOSE 85 mg/dL 06/13/2024 15:44 These readings are within normal limits. HEMOGLOBIN A1C - Gives us information about your diabetes (sugar or glucose) control over the past 3 months. Your target is to keep your A1C below 0 %. HGA1C 5.6 % 06/13/2024 15:43 These readings are within normal limits. CBC - A complete blood count (CBC) gives important information about the kinds and numbers of cells in the blood, especially red blood cells, white blood cells, and platelets. HGB 14.4 g/dL 06/13/2024 15:43 HEMATOCRIT 40.7 % (06/13/24 15:43) PLT 184 10*3/uL 06/13/2024 15:43 WHITE BLOOD COUNT 8.0 10*3/uL (06/13/24 15:43) These readings are within normal limits. CHEM 7 - This is important information about the current status of your kidneys, liver, and electrolyte and acid/base balance as well as of your blood sugar and blood proteins. SODIUM 135 L mEq/L 06/13/2024 15:44 POTASSIUM 4.1 mEq/L 06/13/2024 15:44 CHLORIDE 100 mEq/L 06/13/2024 15:44 UREA NITROGEN 11.1 mg/dL 06/13/2024 15:44 CREATININE 1.09 mg/dL 06/13/2024 15:44 CALCIUM 8.9 mg/dL 06/13/2024 15:44 CARBON DIOXIDE 27 mEq/L 06/13/2024 15:44 GLUCOSE 85 mg/dL 06/13/2024 15:44 EGFR (CKD-EPI 2020) 70.34 06/13/2024 15:44 We will repeat lab at next visit. LIVER FUNCTION PANEL - These are tests for liver function: PROTEIN 6.7 g/dL 06/13/2024 15:44 ALBUMIN 3.9 g/dL 06/13/2024 15:44 TOTAL BILIRUBIN 0.2 mg/dL 06/13/2024 15:44 ALKALINE PHOSPHATASE 49 U/L 06/13/2024 15:44 AST/SGOT 20 U/L 06/13/2024 15:44 ALT/SGPT 10 U/L 06/13/2024 15:44 These readings are within normal limits. PSA - Prostate-specific antigen is a protein produced by cells of the prostate gland. The PSA test measures the level of PSA in the blood. PSA PROST. SPECIFIC AG.(PB-STL) 7.178 H ng/mL 06/13/2024 15:44 These results are abnormal. Gambell need to see urology. TSH - Thyroid-stimulating hormone (also known as TSH or thyrotropin) is a peptide hormone synthesized and secreted by thyrotrope cells in the anterior pituitary gland, which regulates the endocrine function of the thyroid gland. TSH TSH 3.843 uIU/mL 06/13/2024 15:44 These readings are within normal limits. FUTURE APPOINTMENTS: 07/14/2024 14:30 [facility] PCP Sincerely, Rodney Mills MD Staff Physician LENNY LOPEZ ASHA [facility] Jun 14, 2024 09:13 AM ADDENDUM: LOCAL TITLE: Addendum STANDARD TITLE: ADDENDUM DATE OF NOTE: JUN 14, 2024@09:13:36 ENTRY DATE: JUN 14, 2024@09:13:37 AUTHOR: RODNEY MILLS EXP COSIGNER: URGENCY: STATUS: COMPLETED Elevated PSA: Gambell need to see urology for follow-up. /vince/ Rodney Mills MD Staff Physician Signed: 06/14/2024 09:15 Receipt Acknowledged By: 07/29/2024 12:39 /vince/ DENISE AGUIRRE BSN RN CCRN REGISTERED NURSE --- Original Document --- 06/13/24 PRIMARY CARE PROVIDER ESTABLISHED VISIT STL: Reason for visit:Scheduled follow-up ESTABLISHED PATIENT [id number]: 74 years old male CC / HPI : routine f/u visit on chronic conditions. is compliance with his medication now. [place] is here with his friend today. According he is staying in hotel currently. Requesting refill on medication. Complaining of scalp hair loss since few months. Gambell is complaining of both sides of chest pain on and off since few months pain last few minute, happen daily few times. According to and his friend that this is most likely stressful job situation. Gambell is complaining of cold symptoms with cough, sore throat, runny nose and sinus pressure since few days. Taking NyQuil from esvz-qqx-rnfodbp. Unintentional weight loss since last visit, complaining of poor appetite, denies any blood in the stool. has no teeth since his service time. Denies any other complaint today. Allergies: NKDA Social History : Tobacco : < 1 PPD ETHO : 4-5 beers daily drugs :no Blood Transfusion : no Tattoo : no Living situation : with spouse Work : no ROS : GENERAL: no fever, no chills PULMONARY: Denies SOB and wheezing CARDIAC: denies palpitations GI: no nausea, no vomiting, no abd: pain, no diarrhea, no constipation EXT: denies pedal edema, no arthritis NEURO : no dizziness, no headache Physical exam : GENERAL: pleasant HEART: S1, S2 WNL, CHEST/LUNGS: Clear to auscultation bilaterally. ABDOMEN: soft, nontender EXTREMITIES: feet and ankles without edema, peripheral pulses intact. NEUROLOGICAL: not in acute distress ASSESSMENT/PLAN: The patient's most recent medication list were reviewed in detail with the patient. - Weight loss: Plan for lab and GI consult. - Acute bronchitis: Plan for benzonatate and Z-Sohail for now. Call us back in few days or go to ER if symptoms does not improve. - Chest pain: Plan for EKG and stress test. - Scalp hair loss: Dermatology consult done. - eczematous dermatitis: Follows with dermatology - Elevated PSA: Follows with urology - Hypothroid : cont's levo: to 150 mcg daily. refill done - Tobacco use : counselling was done again. LD CT Scan was done 08/2022, order done. - Alcohol use: Counseling was done in detail again today. - Depression: No SI, no HI. Refused to see mental health provider. According to to he is talking to his friend about this. Plan: cont's meds. Refill done.need to bring all medication bottles at next visit. Medications list updated with patient today. lab today RTC in 1 months visit pt is asymtomatic now If any Chest pain, ,SOB, headache, dizziness, Blurring of vision,or or worsening of symptoms call 911 or go to ER. Health Maintance : PSA : 2022 Colonoscopy : February 2023, repeat in 3-year Taunts Shot : 2018 Pneumovax : Refused ZOSTER : Refused Patient understands to call nurse coordinator if any new concerns, and go to the emergency room for any acute problem(s). Patient voices understanding and agrees with plan of care. Medication Reconciliation Opt STL: I have reviewed the patient's medication list (including active outpatient [facility] ([facility]) and dispensed from another [place] or [place] facility (remote) as well as inpatient orders (local pending and active), local clinic medications, locally documented non-VA medications, and local prescriptions that have or been discontinued in the past 90 days.) with the patient and/or his/her care-cto. Handwritten corrections, additions and/or deletions were made to the list, as appropriate. Corrected Outpatient Medication List was provided to the patient/caregiver. /bg Mills MD Staff Physician Signed: 06/14/2024 09:08 06/14/2024 ADDENDUM STATUS: COMPLETED please mail the lab letter. /bg Mills MD Staff Physician Signed: 06/14/2024 09:09 Receipt Acknowledged By: 06/15/2024 08:26 /bg RODRIGUES MSA 06/14/2024 ADDENDUM STATUS: COMPLETED please mail the lab letter. /bg Mills MD Staff Physician Signed: 06/14/2024 09:16 Receipt Acknowledged By: 06/15/2024 08:26 /RODNEY Lynch MSA [facility] Jun 14, 2024 09:08 AM ADDENDUM: LOCAL TITLE: Addendum STANDARD TITLE: ADDENDUM DATE OF NOTE: JUN 14, 2024@09:08:51 ENTRY DATE: JUN 14, 2024@09:08:52 AUTHOR: RODNEY MILLS COSIGNER: URGENCY: STATUS: COMPLETED please mail the lab letter. /bg Mills MD Staff Physician Signed: 06/14/2024 09:09 Receipt Acknowledged By: 06/15/2024 08:26 /bg RODRIGUES MSA --- Original Document --- 06/13/24 PRIMARY CARE PROVIDER ESTABLISHED VISIT STL: Reason for visit:Scheduled follow-up ESTABLISHED PATIENT [id number]: 74 years old male CC / HPI : routine f/u visit on chronic conditions. Gambell is compliance with his medication now. Gambell is here with his friend today. According he is staying in hotel currently. Requesting refill on medication. Complaining of scalp hair loss since few months. Gambell is complaining of both sides of chest pain on and off since few months pain last few minute, happen daily few times. According to and his friend that this is most likely stressful job situation. Gambell is complaining of cold symptoms with cough, sore throat, runny nose and sinus pressure since few days. Taking NyQuil from [id number]. Unintentional weight loss since last visit, complaining of poor appetite, denies any blood in the stool. has no teeth since his service time. Denies any other complaint today. Allergies: NKDA Social History : Tobacco : < 1 PPD ETHO : 4-5 beers daily drugs :no Blood Transfusion : no Tattoo : no Living situation : with spouse Work : no ROS : GENERAL: no fever, no chills PULMONARY: Denies SOB and wheezing CARDIAC: denies palpitations GI: no nausea, no vomiting, no abd: pain, no diarrhea, no constipation EXT: denies pedal edema, no arthritis NEURO : no dizziness, no headache Physical exam : GENERAL: pleasant HEART: S1, S2 WNL, CHEST/LUNGS: Clear to auscultation bilaterally. ABDOMEN: soft, nontender EXTREMITIES: feet and ankles without edema, peripheral pulses intact. NEUROLOGICAL: not in acute distress ASSESSMENT/PLAN: The patient's most recent medication list were reviewed in detail with the patient. - Weight loss: Plan for lab and GI consult. - Acute bronchitis: Plan for benzonatate and Z-Sohail for now. Call us back in few days or go to ER if symptoms does not improve. - Chest pain: Plan for EKG and stress test. - Scalp hair loss: Dermatology consult done. - eczematous dermatitis: Follows with dermatology - Elevated PSA: Follows with urology - Hypothroid : cont's levo: to 150 mcg daily. refill done - Tobacco use : counselling was done again. LD CT Scan was done 08/2022, order done. - Alcohol use: Counseling was done in detail again today. - Depression: No SI, no HI. Refused to see mental health provider. According to to he is talking to his friend about this. Plan: cont's meds. Refill done.need to bring all medication bottles at next visit. Medications list updated with patient today. lab today RTC in 1 months visit pt is asymtomatic now If any Chest pain, ,SOB, headache, dizziness, Blurring of vision,or or worsening of symptoms call 911 or go to ER. Health Maintance : PSA : 2022 Colonoscopy : February 2023, repeat in 3-year Taunts Shot : 2018 Pneumovax : Refused ZOSTER : Refused Patient understands to call nurse coordinator if any new concerns, and go to the emergency room for any acute problem(s). Patient voices understanding and agrees with plan of care. Medication Reconciliation Opt STL: I have reviewed the patient's medication list (including active outpatient prescriptions [facility]ensed from [facility] (local) and dispensed from another [place] or [place] facility (remote) as well as inpatient orders (local pending and active), local clinic medications, locally documented non-VA medications, and local prescriptions that have or been discontinued in the past 90 days.) with the patient and/or his/her care-cto. Handwritten corrections, additions and/or deletions were made to the list, as appropriate. Corrected Outpatient Medication List was provided to the patient/caregiver. /bg Mills MD Staff Physician Signed: 06/14/2024 09:08 06/14/2024 ADDENDUM STATUS: COMPLETED Elevated PSA: Gambell need to see urology for follow-up. /bg Mills MD Staff Physician Signed: 06/14/2024 09:15 Receipt Acknowledged By: * AWAITING SIGNATURE * DENISE AGUIRRE 06/14/2024 ADDENDUM STATUS: COMPLETED please mail the lab letter. /bg Mills MD Staff Physician Signed: 06/14/2024 09:16 Receipt Acknowledged By: 06/15/2024 08:26 /vince/ RODNEY FERNÁNDEZ MSA [facility] Jun 13, 2024 04:00 PM ADDENDUM: LOCAL TITLE: Addendum STANDARD TITLE: ADDENDUM DATE OF NOTE: JUN 13, 2024@16:00:40 ENTRY DATE: JUN 13, 2024@16:00:41 AUTHOR: SYDNEY SEGURA EXP COSIGNER: URGENCY: STATUS: COMPLETED pt and S.O. said that they are staying in a motel and have been since . Also mr. lopez stated that he has a crazy brother staying with him and he doesnt help with the bills. He can not recieve mail at the hotel. He would like to stay in the [facility] area but cannot find anything. /es/ SYDNEY SEGURA LICENSED OPTICIAN LICENSED PRACTICAL NURSE Signed: 06/13/2024 16:12 Receipt Acknowledged By: 06/13/2024 16:54 /vince/ Alayna Thompson LCSW LCSW [employer] OPERATOR [employer] Supervisor --- Original Document --- 06/13/24 V15 PACT FACE TO FACE NOTE STL: Provider Visit: Patient Identifiers : Full Name Date of Reason for visit: Established Follow-Up routine visit Mode of Arrival: Ambulatory Allergy Review: Patient has answered NKA Allergy list reviewed and remains current. Recent Vital Signs: Temperature: 97.4 F [36.3 C] (06/13/2024 15:05) Pulse: 80 (06/13/2024 15:05) Respiration: 16 (06/13/2024 15:05) B/P: 105/65 (06/13/2024 15:05) Pain: 0 (06/13/2024 15:05) Wt: 129 lb [58.51 kg] (06/13/2024 15:05) Ht: 67 in [170.2 cm] (04/09/2023 14:37) BMI: 20.2 POX: 96% (06/13/2024 15:05) PERSONAL HEALTH INVENTORY Notes: No data available for PHI note titles PERSONAL HEALTH INVENTORY - MAP: No data available for PHI MAP What matters most to you in your life right now? - 's Response: my health. family Would you like to discuss any personal problem, family problem, alcohol use, drug use, or a mental or emotional illness? No My [facility] ([facility]), please select appointment type: Face to face: No-please briefly review benefits and [facility] to get more information and register if interested. No- Are you interested in getting this done? No Contact provided Primary Care phone number and encouraged to call if any questions or concerns. Review that after hours nurse line [phone] and emergency room are available 01/12 for patient use. Contact verbalized good understanding. Sexual Orientation - CP,L,N,P,PH,PS,S,U: The patient thinks of their sexual orientation as: Straight or Heterosexual Alcohol Use Screen (AUDIT-C) - V: Alcohol Screen: SCREEN FOR ALCOHOL (AUDIT-C) An alcohol screening test (AUDIT-C) was positive (score=7). 1. How often did you have a drink containing alcohol in the past year? Consider a drink to be a 12 ounce can or bottle of regular beer, 8 ounces of malt liquor, a 5 ounce glass of table wine, or a 1.5 ounce shot of liquor (like scotch, gin, or vodka). Four or more times a week 2. How many drinks containing alcohol did you have on a typical day when you were drinking in the past year? Five or six drinks 3. How often did you have six or more drinks on one occasion in the past year? Less than monthly Licensed Independent Provider notified of positive screen and need for follow-up. Name of provider notified: dr mills Depression Screening - V: Perform PHQ-2 A PHQ-2 screen was performed. The score was 2 which is a negative screen for depression. Over the past two weeks, how often have you been bothered by the following problems? 1. Little interest or pleasure in doing things Several days 2. Feeling down, depressed, or hopeless Several days Tobacco Use Screening - AT,DE,L,M,N,P,PH,PS,RT,S,U: The patient smokes cigarettes every day. The patient states they have smoked for the following number of years: # of years: 60 Average number of packs/day over the entire time patient smoked: Packs/day: 1 The patient has never used other types of tobacco. /vince/ SYDNEY SEGURA LPN LICENSED PRACTICAL NURSE Signed: 06/13/2024 15:13 SYDNEY SEGURA [facility] Jun 13, 2024 03:05 PM NURSING NOTE: LOCAL TITLE: 5 PA[address] FACE TO FACE NOTE ST STANDARD TITLE: NURSING NOTE DATE OF NOTE: JUN 13, 2024@15:05 ENTRY DATE: JUN 13, 2024@15:06:04 AUTHOR: SYDNEY SEGURA EXP COSIGNER: URGENCY: STATUS: COMPLETED V15 PACT FACE TO FACE NOTE STL Has ADDENDA Provider Visit: Patient Identifiers : Full Name Date of Reason for visit: Established Follow-Up routine visit Mode of Arrival: Ambulatory Allergy Review: Patient has answered NKA Allergy list reviewed and remains current. Recent Vital Signs: Temperature: 97.4 F [36.3 C] (06/13/2024 15:05) Pulse: 80 (06/13/2024 15:05) Respiration: 16 (06/13/2024 15:05) B/P: 105/65 (06/13/2024 15:05) Pain: 0 (06/13/2024 15:05) Wt: 129 lb [58.51 kg] (06/13/2024 15:05) Ht: 67 in [170.2 cm] (04/09/2023 14:37) BMI: 20.2 POX: 96% (06/13/2024 15:05) PERSONAL HEALTH INVENTORY Notes: No data available for PHI note titles PERSONAL HEALTH INVENTORY - MAP: No data available for PHI MAP What matters most to you in your life right now? - 's Response: my health. family Would you like to discuss any personal problem, family problem, alcohol use, drug use, or a mental or emotional illness? No My [facility] ([facility]), please select appointment type: Face to face: No-please briefly review benefits and direct to My [facility] to get more information and register if interested. No- Are you interested in getting this done? No Contact provided Primary Care phone number and encouraged to call if any questions or concerns. Review that after hours nurse line [phone] and emergency room are available 01/12 for patient use. Contact verbalized good understanding. Sexual Orientation - CP,L,N,P,PH,PS,S,U: The patient thinks of their sexual orientation as: Straight or Heterosexual Alcohol Use Screen (AUDIT-C) - V: Alcohol Screen: SCREEN FOR ALCOHOL (AUDIT-C) An alcohol screening test (AUDIT-C) was positive (score=7). 1. How often did you have a drink containing alcohol in the past year? Consider a drink to be a 12 ounce can or bottle of regular beer, 8 ounces of malt liquor, a 5 ounce glass of table wine, or a 1.5 ounce shot of liquor (like scotch, gin, or vodka). Four or more times a week 2. How many drinks containing alcohol did you have on a typical day when you were drinking in the past year? Five or six drinks 3. How often did you have six or more drinks on one occasion in the past year? Less than monthly Licensed Independent Provider notified of positive screen and need for follow-up. Name of provider notified: dr mills Depression Screening - V: Perform PHQ-2 A PHQ-2 screen was performed. The score was 2 which is a negative screen for depression. Over the past two weeks, how often have you been bothered by the following problems? 1. Little interest or pleasure in doing things Several days 2. Feeling down, depressed, or hopeless Several days Tobacco Use Screening - AT,DE,L,M,N,P,PH,PS,RT,S,U: The patient smokes cigarettes every day. The patient states they have smoked for the following number of years: # of years: 60 Average number of packs/day over the entire time patient smoked: Packs/day: 1 The patient has never used other types of tobacco. /vince/ SYDNEY SEGURA LPN LICENSED PRACTICAL NURSE Signed: 06/13/2024 15:13 06/13/2024 ADDENDUM STATUS: COMPLETED pt and S.O. said that they are staying in a motel and have been since . Also mr. lopez stated that he has a crazy brother staying with him and he doesnt help with the bills. He can not recieve mail at the hotel. [place] in the [place] area but cannot find anything. /vince/ SYDNEY SEGURA LPN LICENSED PRACTICAL NURSE Signed: 06/13/2024 16:12 Receipt Acknowledged By: * AWAITING SIGNATURE * ALAYNA THOMPSON AMY L [facility] Jun 13, 2024 02:31 PM PRIMARY CARE NOTE: LOCAL TITLE: PRIMARY CARE PROVIDER ESTABLISHED VISIT ST STANDARD TITLE: PRIMARY CARE NOTE DATE OF NOTE: JUN 13, 2024@14:31 ENTRY DATE: JUN 13, 2024@14:31:22 AUTHOR: RODNEY MILLS COSIGNER: URGENCY: STATUS: COMPLETED PRIMARY CARE PROVIDER ESTABLISHED VISIT ST Has ADDENDA Reason for visit:Scheduled follow-up ESTABLISHED PATIENT [id number]: 74 years old male CC / HPI : routine f/u visit on chronic conditions. Gambell is compliance with his medication now. is here with his friend today. According he is staying in hotel currently. Requesting refill on medication. Complaining of scalp hair loss since few months. is complaining of both sides of chest pain on and off since few months pain last few minute, happen daily few times. According to and his friend that this is most likely stressful job situation. is complaining of cold symptoms with cough, sore throat, runny nose and sinus pressure since few days. Taking NyQuil from [facility]. Unintentional weight loss since last visit, complaining of poor appetite, denies any blood in the stool. Gambell has no teeth since his service time. Denies any other complaint today. Allergies: NKDA Social History : Tobacco : < 1 PPD ETHO : 4-5 beers daily drugs :no Blood Transfusion : no Tattoo : no Living situation : with spouse Work : no ROS : GENERAL: no fever, no chills PULMONARY: Denies SOB and wheezing CARDIAC: denies palpitations GI: no nausea, no vomiting, no abd: pain, no diarrhea, no constipation EXT: denies pedal edema, no arthritis NEURO : no dizziness, no headache Physical exam : GENERAL: pleasant HEART: S1, S2 WNL, CHEST/LUNGS: Clear to auscultation bilaterally. ABDOMEN: soft, nontender EXTREMITIES: feet and ankles without edema, peripheral pulses intact. NEUROLOGICAL: not in acute distress ASSESSMENT/PLAN: The patient's most recent medication list were reviewed in detail with the patient. - Weight loss: Plan for lab and GI consult. - Acute bronchitis: Plan for benzonatate and Z-Sohail for now. Call us back in few days or go to ER if symptoms does not improve. - Chest pain: Plan for EKG and stress test. - Scalp hair loss: Dermatology consult done. - eczematous dermatitis: Follows with dermatology - Elevated PSA: Follows with urology - Hypothroid : cont's levo: to 150 mcg daily. refill done - Tobacco use : counselling was done again. LD CT Scan was done 08/2022, order done. - Alcohol use: Counseling was done in detail again today. - Depression: No SI, no HI. Refused to see mental health provider. According to to he is talking to his friend about this. Plan: cont's meds. Refill done.need to bring all medication bottles at next visit. Medications list updated with patient today. lab today RTC in 1 months visit pt is asymtomatic now If any Chest pain, ,SOB, headache, dizziness, Blurring of vision,or or worsening of symptoms call 911 or go to ER. Health Maintance : PSA : 2022 Colonoscopy : February 2023, repeat in 3-year Taunts Shot : 2017 Pneumovax : Refused ZOSTER : Refused Patient understands to call nurse coordinator if any new concerns, and go to the emergency room for any acute problem(s). Patient voices understanding and agrees with plan of care. Medication Reconciliation Opt STL: I have reviewed the patient's medication list (including active outpatient prescriptions [facility] (local) and dispensed from another [place] or [place] facility (remote) as well as inpatient orders (local pending and active), local clinic medications, locally documented non-VA medications, and local prescriptions that have or been discontinued in the past 90 days.) with the patient and/or his/her care-cto. Handwritten corrections, additions and/or deletions were made to the list, as appropriate. Corrected Outpatient Medication List was provided to the patient/caregiver. /bg Mills MD Staff Physician Signed: 06/14/2024 09:08 06/14/2024 ADDENDUM STATUS: COMPLETED please mail the lab letter. /bg Mills MD Staff Physician Signed: 06/14/2024 09:09 Receipt Acknowledged By: 06/15/2024 08:26 /bg RODRIGUES MSA 06/14/2024 ADDENDUM STATUS: COMPLETED Elevated PSA: Gambell need to see urology for follow-up. /bg Mills MD Staff Physician Signed: 06/14/2024 09:15 Receipt Acknowledged By: 07/29/2024 12:39 /vince/ DENISE AGUIRRE BSN RN CCRN REGISTERED NURSE 06/14/2024 ADDENDUM STATUS: COMPLETED please mail the lab letter. /bg Mills MD Staff Physician Signed: 06/14/2024 09:16 Receipt Acknowledged By: 06/15/2024 08:26 /bg RODRIGUES MSA 08/21/2024 ADDENDUM STATUS: COMPLETED please call with the cardiology recommendation about the stress test. /bg Mills MD Staff Physician Signed: 08/21/2024 18:12 Receipt Acknowledged By: * AWAITING SIGNATURE * DENISE AGUIRRE ASHA [facility]
--- OUTSIDE RECORDS SUMMARY | 2024-10-04 12:03 | XMS_ITS | Continuity of Care Document ---
Author Name [facility] Organization [facility] Care Team Providers Care Bee Robber Name Role Phone [facility] Unavailable Unavailable Problems Combined list of problems from Department of Defense and [facility] Affairs facilities. It does not include entries that were removed or entered in error. Problem Status Onset Date Problem Type Date of Resolution Comments Source Anemia * (ICD-9-CM 285.9) Active Condition [facility] Ankle pain Active Condition [facility] Back pain Active Condition [facility] Chest pain Active Condition [facility] Chronic gingivitis Active Condition [facility] Chronic rhinitis Active Condition [facility] Cough Active Condition [facility] Depression Active Condition [facility] Dermatitis * (ICD-9-CM 692.9) Active Condition [facility] Elevated PSA Active Condition [facility] Graves' Disease Active Condition [facility] Hypothyroidism Active Condition [facility] Hypothyroidism * (ICD-9-CM 244.9) Active Condition [facility] Inguinal hernia (SNOMED CT [id number]) Active Condition [facility] Loss of scalp hair Active Condition [facility] Medical examinations/report s status Active Condition [facility] Noncompliance with medication regimen Active Condition [facility] Posttraumatic Stress Disorder * (ICD-9-CM 309.81) Active Condition [facility] Rash Active Condition [facility] Tobacco user Active Condition [facility] Weight loss Active Condition [facility] Diagnosis: ICD-10-CM E03.9 Hypothyroidism, unspecified Active Diagnosis [facility] Diagnosis: ICD-10-CM R21 Rash and other nonspecific skin eruption Active Diagnosis [facility] Diagnosis: ICD-10-CM L29.9 Pruritus, unspecified Active Diagnosis [facility] Diagnosis: ICD-10-CM Z12.2 Encntr screen for malignant neoplasm of respiratory organs Active Diagnosis [facility] Diagnosis: ICD-10-CM L30.8 Other specified dermatitis Active Diagnosis [facility] Medications Combined list of outpatient medications from Department of Defense and Veterans Affairs facilities.Medications provided include 1) outpatient medications from the last 15 months, and 2) patient-reported medications. Medication Details Route Status Patient Instructions Prescription Expires Prescription Number Last Dispense Date Ordering Provider Order Date Order Qty Source ACETAMINOPH EN 500MG TAB TAKE TWO TABLETS BY MOUTH THREE TIMES A DAY NEEDED CAUTION: DO NOT EXCEED 4000MG PER DAY ACETAMIN OPHEN (APAP) FROM ALL MEDS. ORAL 06/02/2024 [id number] GLORY JONES ONICA R 2023 200 [facility] AZITHROMYCI N 250MG TAB TAKE TWO TABLETS BY MOUTH ONCE A DAY FOR 1 DAY, THEN TAKE ONE TABLET ONCE A DAY FOR 4 DAYS FOR BRONCHIT IS TAKE UNTIL GONE. DO NOT TAKE WITH ALUMINUM OR MAGNESIU M ANTACIDS . ORAL 07/13/2024 [id number] Mamta STONE 2024 6 [facility] BENZONATATE 100MG CAP TAKE ONE CAPSULE BY MOUTH THREE TIMES A DAY NEEDED FOR COUGH ORAL 07/13/2024 [id number] 5 Mamta STONE [facility] 2024 30 [facility] HYDROPHILIC (EQV EUCERIN) CREAM,TOP APPLY LIBERALL Y TO AFFECTED AREA(S) THREE TIMES A DAY NEEDED (EXTERNA L USE ONLY) TOPICA L ACTIVE 05/04/2025 [id number] GLORY JONES ONICA R 2023 454 [facility] LEVOTHYROXI NE NA 150MCG TAB TAKE ONE TABLET BY MOUTH EVERY MORNING BEFORE A MEAL TAKE 30 MINUTES BEFORE FOOD. TAKE SEPARATE LY FROM ALL OTHER MEDICATI ONS. ORAL HOLD 06/14/2025 [id number] 5 VALENTEMamta SOTO [facility] 2024 30 [facility] N LEVOTHYROXI NE NA 150MCG TAB TAKE ONE TABLET BY MOUTH EVERY MORNING BEFORE A MEAL TAKE 30 MINUTES BEFORE FOOD. TAKE SEPARATE LY FROM ALL OTHER MEDICATI ONS. ORAL DISCONT INUED 02/12/2025 [id number] 4 VALENTEMamta SOTO [facility] 2023 30 [facility] N LEVOTHYROXI NE NA 150MCG TAB (SYNTHROID) TAKE ONE TABLET BY MOUTH EVERY MORNING BEFORE A MEAL TAKE 30 MINUTES BEFORE FOOD. TAKE SEPARATE LY FROM ALL OTHER MEDICATI ONS. ORAL DISCONT INUED 02/12/2025 [id number] 4 Mamta STONE [facility] 2023 90 [facility] N MULTIVITAMI NS CAP/TAB TAKE 1 TABLET BY MOUTH ONCE A DAY ORAL ACTIVE 05/04/2025 [id number] 4 KAREN,GLORY ONICA R 2023 30 [facility] NAPROXEN 500MG TAB TAKE ONE TABLET BY MOUTH TWICE A DAY TAKE WITH FOOD. ORAL ACTIVE 05/04/2025 [id number] 4 KAREN,GLORY ONICA R 2023 60 [facility] TRIAMCINOLO NE ACETONIDE 0.1% CREAM,TOP APPLY LIGHTLY TO AFFECTED AREA(S) TWICE A DAY (EXTERNA L USE ONLY) TOPICA L 06/02/2024 [id number] 4 KAREN,GLORY ONICA R 2023 80 [facility] Immunizations Combined list of available immunizations from the Department of Defense and Veterans Affairs facilities. Immunization Series Date Given Administered By Site Reaction Lot Number CVX Code Drug Beer Cooler Status Comments Source COVID-19 (PFIZER), MRNA, LNP-S, PF, ANNY-SUCROSE, 30 MCG/0.3 ML (AGES 12+ YEARS) 1 2022 LILLY MCKEON RIGHT DELTO ID [id number] 309 complet ed [facility] INFLUENZA, HIGH-DOSE, QUADRIVALENT 2022 LILLY MCKEON LEFT DELTO ID [id number] A 197 complet ed Completed Series, [facility] COVID-19 (Fluidinfo), MRNA, LNP-S, BIVALENT BOOSTER, PF, 30 MCG/0.3 ML DOSE 1 2021 300 complet ed PFR; [id number]; 3 [facility] INFLUENZA VACCINE, QUADRIVALENT, ADJUVANTED 2021 205 complet ed [facility] INFLUENZA VACCINE, QUADRIVALENT, ADJUVANTED 2020 205 complet ed [facility] N COVID-19 (Fluidinfo), MRNA, LNP-S, PF, 30 MCG/0.3 ML DOSE 2 2020 208 complet ed [facility] COVID-19 (Fluidinfo), MRNA, LNP-S, PF, 30 MCG/0.3 ML DOSE 1 2020 208 complet ed [facility] N INFLUENZA, INJECTABLE, QUADRIVALENT, PRESERVATIVE FREE 2017 150 complet ed [facility] TDAP 2017 115 complet ed Left Deltoid [facility] INFLUENZA, UNSPECIFIED FORMULATION 2005 88 complet ed [facility] INFLUENZA, UNSPECIFIED FORMULATION 2004 88 complet ed [facility] TD(ADULT) UNSPECIFIED FORMULATION 2004 139 complet ed [facility] Results Combined list of recent chemistry, hematology and other laboratory results from Department of Defense and Veterans Affairs, ranging from 15 months to all on record, depending upon the facility. Order Name Results Value Reference Range Date Interpretation Specimen Comments Source [id number] HEMOGLOBIN A1C/HEMOGLO BIN.TOTAL IN BLOOD 5.6 4.0 - 6.0 06/13 Specimen Type: BLOOD No comment entered. Ordering Provider: ELLIE STONE Report Released Date/Time: Jun 13, 2024 03:24 PM Reporting Lab: [facility] [place] [address] Performing Lab: [facility] [facility] PROST. SPECIFIC AG.(PB-ST L) PROSTATE SPECIFIC AG [MASS/VOLUM E] IN SERUM OR PLASMA 7.178 ng/mL 0.000 - 4.000 06/13 H Specimen Type: SERUM Comment: The listed sex of this patient may not be a typical indication for this test. Therefore, reference ranges or interpretiv e criteria listed may not be valid. Clinical correlation suggested. Ordering Provider: ELLIE STONE Report Released Date/Time: Jun 13, 2024 03:24 PM Reporting Lab: [facility] [place] [address] Performing Lab: [facility] DIVISION TSH (MA-PB) THYROTROPIN [UNITS/VOLU ME] IN SERUM OR PLASMA 3.843 u[IU]/ mL 0.470 - 5.000 06/13 Specimen Type: SERUM Comment: The listed sex of this patient may not be a typical indication for this test. Therefore, reference ranges or interpretiv e criteria listed may not be valid. Clinical correlation suggested. Ordering Provider: ELLIE STONE Report Released Date/Time: Jun 13, 2024 03:24 PM Reporting Lab: [facility] [place] [address] Performing Lab: [facility] [facility] LIPID PANEL (STL) CHOLESTEROL [MASS/VOLUM E] IN SERUM OR PLASMA 97 mg/dL 0 - 200 06/13 Specimen Type: PLASMA Comment: No hemolysis noted. Ordering Provider: ELLIE STONE Report Released Date/Time: Jun 13, 2024 03:24 PM Reporting Lab: [facility] [place] [address] Performing Lab: [facility] LIPID PANEL (STL) TRIGLYCERID E [MASS/VOLUM E] IN SERUM OR PLASMA 143 mg/dL 0 - 150 06/13 Specimen Type: PLASMA Comment: No hemolysis noted. Ordering Provider: ELLIE STONE Report Released Date/Time: Jun 13, 2024 03:24 PM Reporting Lab: [facility] [place] [address] Performing Lab: [facility] [address] LIPID PANEL (STL) CHOLESTEROL IN LDL [MASS/VOLUM E] IN SERUM OR PLASMA BY CALCULATION 28 mg/dL 06/13 Specimen Type: PLASMA Comment: No hemolysis noted. Ordering Provider: ELLIE STONE Report Released Date/Time: Jun 13, 2024 03:24 PM Reporting Lab: [facility] [place] [address] Performing Lab: [facility] [facility] LIPID PANEL (STL) CHOLESTEROL IN HDL [MASS/VOLUM E] IN SERUM OR PLASMA 40 mg/dL 40 06/13 Specimen Type: PLASMA Comment: No hemolysis noted. Ordering Provider: ELLIE STONE Report Released Date/Time: Jun 13, 2024 03:24 PM Reporting Lab: [facility] [place] [address] Performing Lab: [facility] [address] DIVISION COMPREHEN SIVE METABOLIC PANEL CREATININE [MASS/VOLUM E] IN SERUM OR PLASMA 1.09 mg/dL 0.70 - 1.30 06/13 Specimen Type: PLASMA Comment: No hemolysis noted. Ordering Provider: ELLIE STONE Report Released Date/Time: Jun 13, 2024 03:30 PM Reporting Lab: [facility] [place] [address] Performing Lab: [facility] DIVISION COMPREHEN SIVE METABOLIC PANEL UREA NITROGEN [MASS/VOLUM E] IN SERUM OR PLASMA 11.1 mg/dL 9.0 - 25.0 06/13 Specimen Type: PLASMA Comment: No hemolysis noted. Ordering Provider: ELLIE STONE Report Released Date/Time: Jun 13, 2024 03:30 PM Reporting Lab: [facility] [place] [address] Performing Lab: [facility] DIVISION COMPREHEN SIVE METABOLIC PANEL GLUCOSE [MASS/VOLUM E] IN SERUM OR PLASMA 85 mg/dL 72 - 99 06/13 Specimen Type: PLASMA Comment: No hemolysis noted. Ordering Provider: ELLIE STONE Report Released Date/Time: Jun 13, 2024 03:30 PM Reporting Lab: [facility] [place] [address] Performing Lab: [facility] DIVISION COMPREHEN SIVE METABOLIC PANEL SODIUM [MOLES/VOLU ME] IN SERUM OR PLASMA 135 meq/L 136 - 145 06/13 L Specimen Type: PLASMA Comment: No hemolysis noted. Ordering Provider: ELLIE STONE Report Released Date/Time: Jun 13, 2024 03:30 PM Reporting Lab: [facility] [place] [address] Performing Lab: [facility] DIVISION COMPREHEN SIVE METABOLIC PANEL POTASSIUM [MOLES/VOLU ME] IN SERUM OR PLASMA 4.1 meq/L 3.5 - 5.0 06/13 Specimen Type: PLASMA Comment: No hemolysis noted. Ordering Provider: ELLIE STONE Report Released Date/Time: Jun 13, 2024 03:30 PM Reporting Lab: [facility] [place] [address] Performing Lab: [facility] DIVISION COMPREHEN SIVE METABOLIC PANEL CHLORIDE [MOLES/VOLU ME] IN SERUM OR PLASMA 100 meq/L 98 - 107 06/13 Specimen Type: PLASMA Comment: No hemolysis noted. Ordering Provider: ELLIE STONE Report Released Date/Time: Jun 13, 2024 03:30 PM Reporting Lab: [facility] [place] [address] Performing Lab: [facility] DIVISION COMPREHEN SIVE METABOLIC PANEL CARBON DIOXIDE, TOTAL [MOLES/VOLU ME] IN SERUM OR PLASMA 27 meq/L 22 - 31 06/13 Specimen Type: PLASMA Comment: No hemolysis noted. Ordering Provider: ELLIE STONE Report Released Date/Time: Jun 13, 2024 03:30 PM Reporting Lab: [facility] [place] [address] Performing Lab: [facility] DIVISION COMPREHEN SIVE METABOLIC PANEL CALCIUM [MASS/VOLUM E] IN SERUM OR PLASMA 8.9 mg/dL 8.4 - 10.4 06/13 Specimen Type: PLASMA Comment: No hemolysis noted. Ordering Provider: ELLIE STONE Report Released Date/Time: Jun 13, 2024 03:30 PM Reporting Lab: [facility] [place] [address] Performing Lab: [facility] DIVISION COMPREHEN SIVE METABOLIC PANEL PROTEIN [MASS/VOLUM E] IN SERUM OR PLASMA 6.7 g/dL 6.0 - 8.6 06/13 Specimen Type: PLASMA Comment: No hemolysis noted. Ordering Provider: ELLIE STONE Report Released Date/Time: Jun 13, 2024 03:30 PM Reporting Lab: [facility] [place] [address] Performing Lab: [facility] DIVISION COMPREHEN SIVE METABOLIC PANEL ALBUMIN [MASS/VOLUM E] IN SERUM OR PLASMA 3.9 g/dL 3.4 - 5.0 06/13 Specimen Type: PLASMA Comment: No hemolysis noted. Ordering Provider: ELLIE STONE Report Released Date/Time: Jun 13, 2024 03:30 PM Reporting Lab: [facility] [place] [address] Performing Lab: [facility] DIVISION COMPREHEN SIVE METABOLIC PANEL BILIRUBIN.T OTAL [MASS/VOLUM E] IN SERUM OR PLASMA 0.2 mg/dL 0.2 - 1.2 06/13 Specimen Type: PLASMA Comment: No hemolysis noted. Ordering Provider: ELLIE STONE Report Released Date/Time: Jun 13, 2024 03:30 PM Reporting Lab: [facility] [place] [address] Performing Lab: [facility] DIVISION COMPREHEN SIVE METABOLIC PANEL ALKALINE PHOSPHATASE [ENZYMATIC ACTIVITY/VO LUME] IN SERUM OR PLASMA 49 U/L 40 - 150 06/13 Specimen Type: PLASMA Comment: No hemolysis noted. Ordering Provider: ELLIE STONE Report Released Date/Time: Jun 13, 2024 03:30 PM Reporting Lab: [facility] [place] [address] Performing Lab: [facility] DIVISION COMPREHEN SIVE METABOLIC PANEL ASPARTATE AMINOTRANSF ERASE [ENZYMATIC ACTIVITY/VO LUME] IN SERUM OR PLASMA 20 U/L 5 - 34 06/13 Specimen Type: PLASMA Comment: No hemolysis noted. Ordering Provider: ELLIE STONE Report Released Date/Time: Jun 13, 2024 03:30 PM Reporting Lab: [facility] [place] [address] Performing Lab: [facility] DIVISION COMPREHEN SIVE METABOLIC PANEL ALANINE AMINOTRANSF ERASE [ENZYMATIC ACTIVITY/VO LUME] IN SERUM OR PLASMA 10 U/L 8 - 40 06/13 Specimen Type: PLASMA Comment: No hemolysis noted. Ordering Provider: ELLIE STONE Report Released Date/Time: Jun 13, 2024 03:30 PM Reporting Lab: [facility] [place] [address] Performing Lab: [facility] DIVISION COMPREHEN SIVE METABOLIC PANEL GLOMERULAR FILTRATION RATE/1.73 SQ M.PREDICTED [VOLUME RATE/AREA] IN SERUM, PLASMA OR BLOOD BY CREATININE- BASED FORMULA (CKD-EPI 2020) 70.34 60 06/13 Specimen Type: PLASMA Comment: No hemolysis noted. Ordering Provider: ELLIE STONE Report Released Date/Time: Jun 13, 2024 03:30 PM Reporting Lab: [facility] [place] [address] Performing Lab: [facility]1 [facility] [phone] [place] [address] DIVISION CBC LEUKOCYTES [#/VOLUME] IN BLOOD BY AUTOMATED COUNT 8.0 10*3/u L 3.6 - 11.2 06/13 Specimen Type: BLOOD No comment entered. Ordering Provider: ELLIE STONE Report Released Date/Time: Jun 13, 2024 03:30 PM Reporting Lab: [facility] [place] [address] Performing Lab: [facility] [id number] CBC ERYTHROCYTE S [#/VOLUME] IN BLOOD BY AUTOMATED COUNT 4.54 10*6/u L 4.10 - 5.70 06/13 Specimen Type: BLOOD No comment entered. Ordering Provider: ELLEI STONE Report Released Date/Time: Jun 13, 2024 03:30 PM Reporting Lab: [facility] [place] [address] Performing Lab: [facility] CBC HEMOGLOBIN [MASS/VOLUM E] IN BLOOD 14.4 g/dL 13.1 - 16.8 06/13 Specimen Type: BLOOD No comment entered. Ordering Provider: ELLIE STONE Report Released Date/Time: Jun 13, 2024 03:30 PM Reporting Lab: [facility] [place] [address] Performing Lab: [facility] CBC HEMATOCRIT [VOLUME FRACTION] OF BLOOD 40.7 38.2 - 48.4 06/13 Specimen Type: BLOOD No comment entered. Ordering Provider: ELLIE STONE Report Released Date/Time: Jun 13, 2024 03:30 PM Reporting Lab: [facility] [place] [address] Performing Lab: [facility] [place] [phone] DIVISION CBC MCV [ENTITIC VOLUME] BY AUTOMATED COUNT 89.6 fL 80.0 - 100.0 06/13 Specimen Type: BLOOD No comment entered. Ordering Provider: ELLIE STONE Report Released Date/Time: Jun 13, 2024 03:30 PM Reporting Lab: [facility] [place] [address] Performing Lab: [facility] DIVISION CBC MCH [ENTITIC MASS] BY AUTOMATED COUNT 31.7 pg 27.0 - 34.0 06/13 Specimen Type: BLOOD No comment entered. Ordering Provider: ELLIE STONE Report Released Date/Time: Jun 13, 2024 03:30 PM Reporting Lab: [facility] [place] [address] Performing Lab: [facility] DIVISION CBC MCHC [MASS/VOLUM E] BY AUTOMATED COUNT 35.4 g/dL 33.0 - 36.0 06/13 Specimen Type: BLOOD No comment entered. Ordering Provider: ELLIE STONE Report Released Date/Time: Jun 13, 2024 03:30 PM Reporting Lab: [facility] [place] [address] Performing Lab: [facility] DIVISION CBC PLATELETS [#/VOLUME] IN BLOOD BY AUTOMATED COUNT 184 10*3/u L 150 - 400 06/13 Specimen Type: BLOOD No comment entered. Ordering Provider: ELLIE STONE Report Released Date/Time: Jun 13, 2024 03:30 PM Reporting Lab: [facility] [place] [address] Performing Lab: [facility] DIVISION CBC PLATELET MEAN VOLUME [ENTITIC VOLUME] IN BLOOD BY AUTOMATED COUNT 10.0 fL 7.5 - 11.2 06/13 Specimen Type: BLOOD No comment entered. Ordering Provider: ELILE STONE Report Released Date/Time: Jun 13, 2024 03:30 PM Reporting Lab: [facility] [place] [address] Performing Lab: [facility] DIVISION CBC ERYTHROCYTE DISTRIBUTIO N WIDTH [RATIO] BY AUTOMATED COUNT 12.1 11.8 - 15.1 06/13 Specimen Type: BLOOD No comment entered. Ordering Provider: ELLIE STONE Report Released Date/Time: Jun 13, 2024 03:30 PM Reporting Lab: [facility] [place] [address] Performing Lab: [facility] DIVISION CBC LYMPHOCYTES /100 LEUKOCYTES IN BLOOD BY AUTOMATED COUNT 22 06/13 Specimen Type: BLOOD No comment entered. Ordering Provider: ELLIE STONE Report Released Date/Time: Jun 13, 2024 03:30 PM Reporting Lab: [facility] [place] [address] Performing Lab: [facility] DIVISION CBC MONOCYTES/1 00 LEUKOCYTES IN BLOOD BY AUTOMATED COUNT 11 06/13 Specimen Type: BLOOD No comment entered. Ordering Provider: ELLIE STONE Report Released Date/Time: Jun 13, 2024 03:30 PM Reporting Lab: [facility] [place] [address] Performing Lab: [facility] DIVISION CBC NEUTROPHILS /100 LEUKOCYTES IN BLOOD BY AUTOMATED COUNT 65 06/13 Specimen Type: BLOOD No comment entered. Ordering Provider: ELLIE STONE Report Released Date/Time: Jun 13, 2024 03:30 PM Reporting Lab: [facility] [place] [address] Performing Lab: [facility] DIVISION CBC EOSINOPHILS /100 LEUKOCYTES IN BLOOD BY AUTOMATED COUNT 2 06/13 Specimen Type: BLOOD No comment entered. Ordering Provider: ELLIE STONE Report Released Date/Time: Jun 13, 2024 03:30 PM Reporting Lab: [facility] [place] [address] Performing Lab: [facility] DIVISION CBC BASOPHILS/1 00 LEUKOCYTES IN BLOOD BY AUTOMATED COUNT 0 06/13 Specimen Type: BLOOD No comment entered. Ordering Provider: ELLIE STONE Report Released Date/Time: Jun 13, 2024 03:30 PM Reporting Lab: [facility] [place] [address] Performing Lab: [facility] DIVISION CBC LYMPHOCYTES [#/VOLUME] IN BLOOD BY AUTOMATED COUNT 1.77 10*3/u L 0.77 - 4.50 06/13 Specimen Type: BLOOD No comment entered. Ordering Provider: ELLIE STONE Report Released Date/Time: Jun 13, 2024 03:30 PM Reporting Lab: [facility] [place] [address] Performing Lab: [facility] DIVISION CBC MONOCYTES [#/VOLUME] IN BLOOD BY AUTOMATED COUNT 0.90 10*3/u L 0.19 - 0.80 06/13 H Specimen Type: BLOOD No comment entered. Ordering Provider: ELLIE STONE Report Released Date/Time: Jun 13, 2024 03:30 PM Reporting Lab: [facility] [place] [address] Performing Lab: [facility] DIVISION CBC NEUTROPHILS [#/VOLUME] IN BLOOD BY AUTOMATED COUNT 5.20 10*3/u L 2.10 - 8.00 06/13 Specimen Type: BLOOD No comment entered. Ordering Provider: ELLIE STONE Report Released Date/Time: Jun 13, 2024 03:30 PM Reporting Lab: [facility] [place] [address] Performing Lab: [facility] DIVISION CBC EOSINOPHILS [#/VOLUME] IN BLOOD BY AUTOMATED COUNT 0.13 10*3/u L 0.00 - 0.60 06/13 Specimen Type: BLOOD No comment entered. Ordering Provider: ELLIE STONE Report Released Date/Time: Jun 13, 2024 03:30 PM Reporting Lab: [facility] [place] [address] Performing Lab: [facility] DIVISION CBC BASOPHILS [#/VOLUME] IN BLOOD BY AUTOMATED COUNT 0.02 10*3/u L 0.00 - 0.20 06/13 Specimen Type: BLOOD No comment entered. Ordering Provider: ELLIE STONE Report Released Date/Time: Jun 13, 2024 03:30 PM Reporting Lab: [facility] [phone] Performing Lab: [facility] [phone] [facility] BRAIN NATRIURET IC PEPTIDE NATRIURETIC PEPTIDE B [MASS/VOLUM E] IN SERUM OR PLASMA 20.2 pg/mL 0 - 100 04/18 Specimen Type: PLASMA No comment entered. Ordering Provider: MICHAEL SANCHEZ Report Released Date/Time: Apr 18, 2024 10:59 AM Reporting Lab: [place] [id number] [facility] [id number] Performing Lab: [address] [address] [facility] LEUKOCYTES [#/VOLUME] IN BLOOD BY AUTOMATED COUNT 7.9 10*3/u L 3.6 - 11.2 04/18 Specimen Type: BLOOD No comment entered. Ordering Provider: MICHALE SANCHEZ Report Released Date/Time: Apr 18, 2024 10:59 AM Reporting Lab: [facility] [address] Performing Lab: [address] [phone] [place] [address] CBC ERYTHROCYTE S [#/VOLUME] IN BLOOD BY AUTOMATED COUNT 4.86 10*6/u L 4.10 - 5.70 04/18 Specimen Type: BLOOD No comment entered. Ordering Provider: MICHAEL SANCHEZ Report Released Date/Time: Apr 18, 2024 10:59 AM Reporting Lab: [facility] [address] Performing Lab: [address] [address] [facility] CBC HEMOGLOBIN [MASS/VOLUM E] IN BLOOD 15.2 g/dL 13.1 - 16.8 04/18 Specimen Type: BLOOD No comment entered. Ordering Provider: MICHAEL SANCHEZ Report Released Date/Time: Apr 18, 2024 10:59 AM Reporting Lab: [place] [address] [facility] [address] Performing Lab: [facility] [address] [place] [address] [facility] CBC HEMATOCRIT [VOLUME FRACTION] OF BLOOD 46.0 38.2 - 48.4 04/18 Specimen Type: BLOOD No comment entered. Ordering Provider: MICHAEL SANCHEZ Report Released Date/Time: Apr 18, 2024 10:59 AM Reporting Lab: [place] [address] [facility] [address] Performing Lab: [address] [address] [facility] CBC MCV [ENTITIC VOLUME] BY AUTOMATED COUNT 94.7 fL 80.0 - 100.0 04/18 Specimen Type: BLOOD No comment entered. Ordering Provider: MICHAEL SANCHEZ Report Released Date/Time: Apr 18, 2024 10:59 AM Reporting Lab: [place] [address] [facility] [address] Performing Lab: [place] [address] [facility] [address] [facility] CBC MCH [ENTITIC MASS] BY AUTOMATED COUNT 31.3 pg 27.0 - 34.0 04/18 Specimen Type: BLOOD No comment entered. Ordering Provider: MICHAEL SANCHEZ Report Released Date/Time: Apr 18, 2024 10:59 AM Reporting Lab: [place] [address] [facility] [address] Performing Lab: [address] [address] [facility] CBC MCHC [MASS/VOLUM E] BY AUTOMATED COUNT 33.0 g/dL 33.0 - 36.0 04/18 Specimen Type: BLOOD No comment entered. Ordering Provider: MICHAEL SANCHEZ Report Released Date/Time: Apr 18, 2024 10:59 AM Reporting Lab: [place] [address] [address] [facility] [address] Performing Lab: [place] [address] [facility] [address] [facility] CBC PLATELETS [#/VOLUME] IN BLOOD BY AUTOMATED COUNT 251 10*3/u L 150 - 400 04/18 Specimen Type: BLOOD No comment entered. Ordering Provider: MICHAEL SANCHEZ Report Released Date/Time: Apr 18, 2024 10:59 AM Reporting Lab: [place] [address] [facility] [address] Performing Lab: [place] [address] [facility] [address] [facility] CBC PLATELET MEAN VOLUME [ENTITIC VOLUME] IN BLOOD BY AUTOMATED COUNT 10.4 fL 7.5 - 11.2 04/18 Specimen Type: BLOOD No comment entered. Ordering Provider: MICHAEL SANCHEZ Report Released Date/Time: Apr 18, 2024 10:59 AM Reporting Lab: [place] [address] [facility] [address] Performing Lab: [place] [address] [facility] [address] [facility] CBC ERYTHROCYTE DISTRIBUTIO N WIDTH [RATIO] BY AUTOMATED COUNT 13.1 11.8 - 15.1 04/18 Specimen Type: BLOOD No comment entered. Ordering Provider: MICHAEL SANCHEZ Report Released Date/Time: Apr 18, 2024 10:59 AM Reporting Lab: [place] [address] [facility] [address] Performing Lab: [address] [address] [facility] CBC LYMPHOCYTES /100 LEUKOCYTES IN BLOOD BY AUTOMATED COUNT 25 04/18 Specimen Type: BLOOD No comment entered. Ordering Provider: MICHAEL SANCHEZ Report Released Date/Time: Apr 18, 2024 10:59 AM Reporting Lab: [facility] [address] [facility] [address] Performing Lab: [facility] [address] [facility] [address] [facility] CBC MONOCYTES/1 00 LEUKOCYTES IN BLOOD BY AUTOMATED COUNT 8 04/18 Specimen Type: BLOOD No comment entered. Ordering Provider: MICHAEL SANCHEZ Report Released Date/Time: Apr 18, 2024 10:59 AM Reporting Lab: [facility] [address] [facility] [address] Performing Lab: [facility] [address] [facility] [address] [facility] CBC NEUTROPHILS /100 LEUKOCYTES IN BLOOD BY AUTOMATED COUNT 64 04/18 Specimen Type: BLOOD No comment entered. Ordering Provider: MICHAEL SANCHEZ Report Released Date/Time: Apr 18, 2024 10:59 AM Reporting Lab: [facility] [address] [facility] [address] Performing Lab: [facility] [address] [facility] [address] [facility] CBC EOSINOPHILS /100 LEUKOCYTES IN BLOOD BY AUTOMATED COUNT 2 04/18 Specimen Type: BLOOD No comment entered. Ordering Provider: MICHAEL SANCHEZ Report Released Date/Time: Apr 18, 2024 10:59 AM Reporting Lab: [facility] [address] [facility] [address] Performing Lab: [facility] [address] [facility] [address] [facility] CBC BASOPHILS/1 00 LEUKOCYTES IN BLOOD BY AUTOMATED COUNT 1 04/18 Specimen Type: BLOOD No comment entered. Ordering Provider: MICHAEL SANCHEZ Report Released Date/Time: Apr 18, 2024 10:59 AM Reporting Lab: [facility] [address] [facility] [address] Performing Lab: [facility] [address] [facility] [address] [facility] CBC LYMPHOCYTES [#/VOLUME] IN BLOOD BY AUTOMATED COUNT 1.99 10*3/u L 0.77 - 4.50 04/18 Specimen Type: BLOOD No comment entered. Ordering Provider: MICHAEL SANCHEZ Report Released Date/Time: Apr 18, 2024 10:59 AM Reporting Lab: [place] [address] [facility] [address] Performing Lab: [place] [address] [facility] [address] [facility] CBC MONOCYTES [#/VOLUME] IN BLOOD BY AUTOMATED COUNT 0.65 10*3/u L 0.19 - 0.80 04/18 Specimen Type: BLOOD No comment entered. Ordering Provider: MICHAEL SANCHEZ Report Released Date/Time: Apr 18, 2024 10:59 AM Reporting Lab: [place] [address] [facility] [address] Performing Lab: [place] [address] [facility] [address] [facility] CBC NEUTROPHILS [#/VOLUME] IN BLOOD BY AUTOMATED COUNT 5.07 10*3/u L 2.10 - 8.00 04/18 Specimen Type: BLOOD No comment entered. Ordering Provider: MICHAEL SANCHEZ Report Released Date/Time: Apr 18, 2024 10:59 AM Reporting Lab: [place] [address] [facility] [address] Performing Lab: [place] [address] [facility] [address] [facility] CBC EOSINOPHILS [#/VOLUME] IN BLOOD BY AUTOMATED COUNT 0.13 10*3/u L 0.00 - 0.60 04/18 Specimen Type: BLOOD No comment entered. Ordering Provider: MICHAEL SANCHEZ Report Released Date/Time: Apr 18, 2024 10:59 AM Reporting Lab: [place] [address] [facility] [address] Performing Lab: [place] [address] [facility] [address] [facility] CBC BASOPHILS [#/VOLUME] IN BLOOD BY AUTOMATED COUNT 0.04 10*3/u L 0.00 - 0.20 04/18 Specimen Type: BLOOD No comment entered. Ordering Provider: MICHAEL SANCHEZ Report Released Date/Time: Apr 18, 2024 10:59 AM Reporting Lab: [place] [address] [facility] [address] Performing Lab: [address] [address] [facility] PT/INR NEW ([facility]) PROTHROMBIN TIME (PT) 10.7 s 9.4 - 12.5 04/18 Specimen Type: PLASMA No comment entered. Ordering Provider: MICHAEL SANCHEZ Report Released Date/Time: Apr 18, 2024 10:59 AM Reporting Lab: [address] [address] Performing Lab: [address] [phone] [place] [address] PT/INR NEW ([facility]) INR IN PLATELET POOR PLASMA BY COAGULATION ASSAY 1.0 {INR} 04/18 Specimen Type: PLASMA No comment entered. Ordering Provider: MICHAEL SANCHEZ Report Released Date/Time: Apr 18, 2024 10:59 AM Reporting Lab: [address] [address] Performing Lab: [address] [address] [facility] APTT APTT IN PLATELET POOR PLASMA BY COAGULATION ASSAY 29.8 s 26.7 - 39.9 04/18 Specimen Type: PLASMA No comment entered. Ordering Provider: MICHAEL SANCHEZ Report Released Date/Time: Apr 18, 2024 10:59 AM Reporting Lab: [address] [place] [address] Performing Lab: [facility] [address] [facility] [address] [facility] Vital Signs Combined list of inpatient and outpatient Vital Signs from Department of Defense and Veterans Affairs, ranging from 12 months to all on record, depending upon the facility. Vital Sign Value Date Comments Source SYSTOLIC BLOOD PRESSURE 105 06/13/2024 15:05:04 [facility] DIASTOLIC BLOOD PRESSURE 65 06/13/2024 15:05:04 [facility] PULSE OXIMETRY 96 06/13/2024 15:05:04 [facility] WEIGHT 129 06/13/2024 15:05:04 [facility] BMI 20 kg/m2 06/13/2024 15:05:04 [facility] PAIN 0 06/13/2024 15:05:04 [facility] TEMPERATURE 97.4 06/13/2024 15:05:04 [facility] PULSE 80 06/13/2024 15:05:04 [facility] RESPIRATION 16 06/13/2024 15:05:04 [facility] SYSTOLIC BLOOD PRESSURE 126 05/03/2024 10:05:01 [facility] DIASTOLIC BLOOD PRESSURE 76 05/03/2024 10:05:01 [facility] PULSE OXIMETRY 98 05/03/2024 10:05:01 [facility] PAIN 9 05/03/2024 10:05:01 [facility] PULSE 62 05/03/2024 10:05:01 [facility] RESPIRATION 17 05/03/2024 10:05:01 [facility] SYSTOLIC BLOOD PRESSURE 147 04/18/2024 11:13:00 [facility] DIASTOLIC BLOOD PRESSURE 68 04/18/2024 11:13:00 [facility] PAIN 0 04/18/2024 11:13:00 [facility] TEMPERATURE 98.8 04/18/2024 11:13:00 [facility] PULSE 64 04/18/2024 11:13:00 [facility] RESPIRATION 16 04/18/2024 11:13:00 [facility] Encounters Combined list of: 1) Encounters from Department of [facility] Affairs facilities going backup to the last 18 months, not all [place] inpatient encounters are included; 2) Encounters from the Department of [facility] facilities going backup to 280 months. Location Location Details Encounter Type Encounter Number Reason For Visit Attending Provider ADM Date DC Date Status Disposition Source [facility] OFFICE O/P EST MOD 30-39 MIN [id number] Diagnos is: ICD-10- CM 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 , unspeci fied BERTHA, SELF 04/09 [facility] Outpatient Encounter [id number] BERTHA, SELF 05/18 [facility] OFFICE O/P EST MOD 30 MIN [id number] Diagnos is: ICD-10- CM L30.8 Other specifi ed dermati tis JERRELL SALAS 06/25 [facility] Outpatient Encounter [id number] MORRO AVENDAÑO 07/08 [facility] Outpatient Encounter [id number] 09/22 [facility] Outpatient Encounter [id number] Diagnos is: ICD-10- CM Z12.2 Encntr screen for maligna nt neoplas m of respira tory organs TARYoselyn CIFUENTES JR 10/26 [facility] [address] [facility] Outpatient Encounter [id number] LUZMA SHAIKH 11/01 [facility] [address] [facility] Outpatient Encounter [id number] MORGAN OWENS Sumanth 11/05 [facility] Outpatient Encounter [id number] Diagnos is: ICD-10- CM Z12.2 Encntr screen for maligna nt neoplas m of respira tory organs Yoselyn NICK JR 01/12 [facility] Outpatient Encounter [id number] 01/26 [facility] Outpatient Encounter [id number] 02/09 [facility] Outpatient Encounter [id number] Diagnos is: ICD-10- CM Z12.2 Encntr screen for maligna nt neoplas m of respira tory organs Yoselyn NICK JR 02/16 [facility] Outpatient Encounter [id number] 03/09 [facility] Outpatient Encounter [id number] Diagnos is: ICD-10- CM Z12.2 Encntr screen for maligna nt neoplas m of respira tory organs Yoselyn NICK JR 03/17 [facility] Outpatient Encounter [id number] CALLY HIGH RET 04/18 [facility] [address] [facility] Outpatient Encounter [id number] 04/18 [facility] [address] [facility] Outpatient Encounter [id number] 04/18 [facility] [address] [facility] Outpatient Encounter [id number] MUDALLAL,O MAR 04/18 [facility] EMERGENCY DEPT VISIT MOD MDM [id number] Diagnos is: ICD-10- CM L29.9 Pruritu s, unspeci fied MUDALLAL,O MAR 04/18 [facility] [address] [facility] Outpatient Encounter [id number] 04/18 [facility] Outpatient Encounter [id number] 04/18 [facility] Outpatient Encounter [id number] MUDALLAL,O MAR 04/18 [facility] [address] [facility] Outpatient Encounter [id number] ANJALI GOMEZ 04/21 [facility] Outpatient Encounter [id number] Diagnos is: ICD-10- CM L29.9 Pruritu s, unspeci fied WHEELER,JEFF S 04/21 [facility] Encounter [id number] Diagnos is: ICD-10- CM R21 Rash and other nonspec ific skin eruptio n MUDALLAL,O MAR 04/21 [facility] Outpatient Encounter [id number] 04/28 [facility] OFFICE O/P EST MOD 30 MIN [id number] Diagnos is: ICD-10- CM R21 Rash and other nonspec ific skin eruptio n KARENPRADEEP QUIROGAA R 05/03 [facility] Outpatient Encounter [id number] 05/05 [facility] OFFICE O/P EST MOD 30 MIN [id number] Diagnos is: ICD-10- CM 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 , unspeci fied BERTHA, SELF 06/13 [facility] Outpatient Encounter [id number] 06/14 [facility] Outpatient Encounter [id number] BERTHA SELF 06/15 [facility] Outpatient Encounter [id number] 06/15 [facility] Outpatient Encounter [id number] 06/16 [facility] Outpatient Encounter [id number] OSVALDO AGUIRREMATTHEW D 07/19 [facility] Outpatient Encounter [id number] OSVALDO AGUIRRE JOANIE D 07/29 [facility] Outpatient Encounter [id number] OSVALDO AGURIREMATTHEW D 08/22 [facility] Outpatient Encounter [id number] OSVALDO AGUIRREMATTHEW D 08/24 [facility] Social History Combined list of available smoking, tobacco, and other social history from Department of Defense and Veterans Affairs facilities. Social History Type Response Date Comment [facility] e Tobacco smoking status NHIS VA-TOBACCO USE EVERY DAY CIGARETTES 06/13/2024 [facility] History of tobacco use MS-TOBACCO NEVER USED OTHER TYPE 06/13/2024 [facility] History of tobacco use VA-TOBACCO USER EVERY DAY 04/09/2023 [facility] History of tobacco use VA-TOBACCO USER EVERY DAY 03/04/2022 [facility] History of tobacco use MS-TOBACCO USE WI 30 MIN OF WAKEUP 02/14/2021 [facility] History of tobacco use VA-TOBACCO USE [employer] NO 12/05/2019 [facility] History of tobacco use TOBACCO USER OFFERED MEDS 08/03/2017 [facility] History of tobacco use CURRENT TOBACCO USER 03/26/2005 [facility] History of tobacco use CURRENT TOBACCO USER 09/23/2004 [facility]
--- OUTSIDE RECORDS SUMMARY | 2024-10-04 12:03 | XMS_ITS ---
Author Name [facility] Organization [facility] [place] Address [address] [place] [address] Care Team Providers Care Technical Specialist Cytology Name Role Phone RODNEY STONE Primary Care [...] PART B Nov 08, 2014 PART B [id number] CHARLES TOLENTINO PATIENT MEDICARE (WNR) MEDICARE (M) PART A Apr 10, 2013 PART A [id number] CHARLES TOLENTINO PATIENT Selected Encounter This section includes the information on record at [place] for the Encounter. Date/Time Encounter Type Encounter Description Reason Pro vider Source Jan 27, 2024 08:11 AM Outpatient Encounter [facility] Encounter Template Text not used by [place] Plan of Treatment: Future Appointments (+ 6 [...] 20 appointments. The data comes from all [place] treatment facilities. Appointment Date/Time Appointment Type Appointme nt Facility Name Apr 18, 2024 10:56 AM AMBULATORY - MEDICINE [facility] May 03, 2024 10:00 AM AMBULATORY - MEDICINE [facility] Jun 13, 2024 02:30 PM AMBULATORY - MEDICINE [facility] Jul 14, 2024 02:30 PM AMBULATORY - MEDICINE [facility] Social History: Smoking Status (Most current) and Tobacco Use (All prior to encounter date) This section includes the most current, and the historical, smoking and tobacco- related health factors from the [place] facility where the Encounter took place. Current Smoking Status This section includes the most current smoking, or tobacco-related health factor, from the [place] facility where the Encounter took place. 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 The data comes from the [place] facility where the Encounter took place. 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 Date/Time Encounter Note(s) Provider Source Jan 25, 2024 08:11 AM NONVA NOTE: LOCAL TITLE: [facility] SELF PRESENTING CARE COORD PLAN STANDARD TITLE: NONVA NOTE DATE OF NOTE: JAN 25, 2024@08:11 ENTRY DATE: JAN 27, 2024@08:11:49 AUTHOR: ANEESH BALBUENA EXP COSIGNER: URGENCY: STATUS: COMPLETED Emergency Notification Intake Date Presenting to the Facility: Jan Method of Contact: Notified from ECR worklist Notification ID: [id number] [facility] Referral #: [id number] Clinical Review [facility] Name: [facility]: [facility] Address: [address] City: [place] State: [place] Zip Code: [address] [facility] Point of Contact: Name: SYDNEY FOREMAN Chief complaint: Acute Bacterial Bronchitits Primary Diagnosis: Disposition Discharged Date of discharge: Jan Discharge to home Records req'd by fax. 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
--- OUTSIDE RECORDS SUMMARY | 2024-10-04 12:03 | XMS_ITS | Encounter Summary ---
Author Name [facility] [place] [facility] Address [address] [place] [address] Care Team Providers Care Rod Tape Operator Name Role Phone RODNEY MILLS Primary Care [...] PART B Nov 08, 2014 PART B [id number] CHARLES TOLENTINO PATIENT MEDICARE (WNR) MEDICARE (M) PART A Apr 10, 2013 PART A [id number] CHARLES TOLENTINO PATIENT Selected Encounter This section includes the information on record at [place] for the Encounter. Date/Time Encounter Type Encounter Description Reason Provider Source Nov 06, 2023 09:43 AM Outpatient Encounter GENERAL INTERNAL MEDICINE AMARIS OWENS Encounter Template Text not used by [place] Plan of Treatment: Future Appointments (+ 6 [...] 20 appointments. The data comes from all [place] treatment facilities. Appointment Date/Time Appointment Type Appointme nt Facility Name Apr 18, 2024 10:56 AM AMBULATORY - MEDICINE [facility] May 03, 2024 10:00 AM AM[facility]ATORY - MEDICINE [facility] Social History: Smoking Status (Most current) and Tobacco Use (All prior to encounter date) This section includes the most current, and the historical, smoking and tobacco- related health factors from the [place] facility where the Encounter took place. Current Smoking Status This section includes the most current smoking, or tobacco-related health factor, from the [place] facility where the Encounter took place. Date/Time Current Smoking Status Comment Facil ity Dec 05, 2019 09:44 AM VA-TOBACCO USE RN RECRUITMENT NO [facility] Tobacco Use History This section includes a history of the smoking, or tobacco-related health factors, that were collected on or before the date of the Encounter. The data comes from the [place] facility where the Encounter took place. Date/Time Smoking Status/Tobacco Use Comment F acility Dec 05, 2019 09:44 AM VA-TOBACCO USE ADVICE [facility] Dec 05, 2019 09:44 AM VA-TOBACCO USE RN RECRUITMENT NO [facility] Dec 05, 2019 09:44 AM VA-TOBACCO USE MED NO [facility] Dec 05, 2019 09:44 AM VA-TOBACCO USE WI 30 MIN OF WAKEUP [facility] Dec 05, 2019 09:44 AM VA-TOBACCO USER EVERY DAY [facility] Encounter Notes: All associated encounter notes This section contains the clinical notes associated to the Encounter. Date/Time Encounter Note(s) Provider Source Oct 31, 2023 09:43 AM NONVA NOTE: LOCAL TITLE: [facility] S[facility]F PRESENTING CARE COORD PLAN STANDARD TITLE: NONVA NOTE DATE OF NOTE: OCT 31, 2023@09:43 ENTRY DATE: NOV 06, 2023@09:43:31 AUTHOR: MORGAN OWENS COSIGNER: URGENCY: STATUS: COMPLETED [facility]F PRESENTING CARE COORD PLAN [address] ADDENDA Emergency Notification Intake Date Presenting to the Facility: Oct Method of Contact: Submitted to Centralized Call Center Notification ID: [id number] HSRM Referral #: [facility] Name: Hospital: [facility] Address: City: [place] State: [place] Zip Code: Phone : [facility] Point of Contact: Name: Phone: Chief complaint: Syncope Primary Diagnosis: Disposition Admitted Route of Admission: Date of Admission: Oct Admitting Diagnosis: SYNCOPE Community Care Provider: Confirm Level of Care: [place] records sent securely to [place] PCP and RNCM. Records sent to [facility] for expedited upload. [facility] alerted via [employer] for eligibility review. No further records available. Alerting PCP team to this note for continuity of care. Patient presented to ER after having syncopal episode. B/P 84/52. He was hypothermic with temp 94.3 degrees. WBC 11.8K, NA+134, K+3.1, Cr 1.4. Troponin negative x2. UA showing>100 RBC. Thompson was placed. Pt has BPH and a hx of prostate biopsy that was negative for prostate cancer. He has hematuria regularly. He was given 3L fluids and K+ replaced; his b/p and temp improved. TSH >100 WITH LOW FT4. Suspect he has profound hypothyroidism from noncompliance coupled with marijuana and alcohol use resulting in HTN and syncope. Levothyroxine IV started. Urine became clear, thompson was removed. He will need to f/u with Urology. /vince/ MORGAN CARROLLN RN REGISTERED NURSE Signed: 11/06/2023 09:53 Receipt Acknowledged By: 11/06/2023 12:01 /vince/ Rodney Mills MD Staff Physician 11/09/2023 08:38 /vince/ DENISE CARROLLN RN CCRN REGISTERED NURSE 11/16/2023 ADDENDUM STATUS: COMPLETED HSRM Referral ID: [id number] Status: Closed - Approved for 170 /vince/ MARQUES HUERTA [facility] PAIL BAILER Signed: 11/16/2023 09:00 MORGAN OWENS [facility]
--- OUTSIDE RECORDS SUMMARY | 2024-10-04 12:03 | XMS_ITS | Encounter Summary ---
Author Name [facility] Organization [facility] Address [address] [place] [address] Care Team Providers Care Beater Operator Name Role Phone RODNEY STONE Primary Care [...] PART B Nov 08, 2014 PART B [id number] [phone] CHARLES TOLENTINO PATIENT MEDICARE (WNR) MEDICARE (M) PART A Apr 10, 2013 PART A [id number] CHARLES TOLENTINO PATIENT Selected Encounter This section includes the information on record at [place] for the Encounter. Date/Time Encounter Type Encounter Description Reason Provider Source Apr 18, 2024 10:56 AM EMERGENCY DEPT VISIT MOD [facility] EMERGENCY DEPT ICD-10-CM L29.9 Pruritus, unspecified MUDALLAL,ASHLEY IHE Encounter Template Text not used by [place] Assessments - Encounter Diagnoses This section includes the primary and secondary diagnoses documented for the Encounter. Date/Time Primary/Secondary Diagnosis Diagnosis Name Provider Source Apr 18, 2024 01:41 PM PRIMARY Pruritus, unspecified MUDALLAL,ASHLEY [facility] Plan of Treatment: Future Appointments (+ 6 months) and Future Tests (+/- 45 days) The Plan of Treatment section includes future care activities for the patient [facility] This section includes future appointments and future orders which are active, pending or scheduled. Future Appointments This section includes appointments that were scheduled to occur 6 months from the date of the Encounter, up to a maximum of 20 appointments. The data comes from all [place] treatment facilities. Appointment Date/Time Appointment Type Appointme nt Facility Name May 03, 2024 10:00 AM AMBULATORY - MEDICINE [facility] Jun 13, 2024 02:30 PM AMBULATORY MEDICINE [facility] Jul 14, 2024 02:30 PM [facility] MEDICINE [facility] Lab Results: +/- 30 days of the encounter This section includes the Chemistry and Hematology Lab Results on record with [place] for the patient. Radiology Reports and Pathology Reports are provided separately, in subsequent sections. Lab Results This section contains the Chemistry/Hematology Results that were resulted 30 days before or 30 daysafter the date of the Encounter. Date/Time Source Result Type Result - Unit Interpretation Reference Range Specimen Type Comment Apr 18, 2024 11:04 AM [facility] BRAIN NATRIURETIC PEPTIDE PLASMA Specimen Type : PLASMA No comment entered. Ordering Provider: MARQUES SANCHEZ Report Released Date/Time: Apr 18, 2024 10:59 AM Reporting Lab: [address] [id number] Performing Lab: [address] [id number] BRAIN NATRIURETIC PEPTIDE 20.2 pg/mL 0-1 00 Apr 18, 2024 11:04 AM [facility] CBC BLOOD Specimen Type: BLOOD No comment entered. Ordering Provider: MARQUES SANCHEZ Report Released Date/Time: Apr 18, 2024 10:59 AM Reporting Lab: [address] [address] Performing Lab: [address] [address] WBC 7.9 10*3/uL 3.6-11.2 RBC 4.86 10*6/uL [...] 20 Apr 18, 2024 11:04 AM [facility] PT/INR NEW (STL-MA) PLASMA Specimen Type: PLAS MA No comment entered. Ordering Provider: MARQUES SANCHEZ Report Released Date/Time: Apr 18, 2024 10:59 AM Reporting Lab: [address] [address] Performing Lab: [facility] [address] [place] [phone] PROTIME 10.7 s 9.4-12.5 INR VALUE 1.0 {INR} Apr 18, 2024 11:04 AM [facility] APTT PLASMA Specimen Type: PLASM A No comment entered. Ordering Provider: MARQUES SANCHEZ Report Released Date/Time: Apr 18, 2024 10:59 AM Reporting Lab: [facility] [address] [place] [phone] Performing Lab: [facility] [address] [place] [phone] APTT 29.8 s 26.7-39.9 Apr 18, 2024 11:04 AM [facility] COMPREHENSIVE METABOLIC PANEL PLASMA Specimen Type: PLASMA Comment: No hemolysis noted. Ordering Provider: MARQUES SANCHEZ Report Released Date/Time: Apr 18, 2024 10:59 AM Reporting Lab: [facility] [address] [facility] [place] [address] Performing Lab: [address] [address] CREATININE 1.02 mg/dL 0.7-1.3 UREA NITROGEN 11.7 [...] 76.6 >60 Apr 18, 2024 11:04 AM [facility] TROPONIN I PLASMA Specimen Type: PLASM A Comment: No hemolysis noted. Ordering Provider: MARQUES SANCHEZ Report Released Date/Time: Apr 18, 2024 10:59 AM Reporting Lab: [address] [address] Performing Lab: [address] [address] TROPONIN I <0.010 ng/mL 0-0.033 Vital Signs: All taken on the encounter date This section contains inpatient and outpatient Vital Signs collected on the date of the Encounter. Date/Time Temperature Pulse Blood Pressure Respiratory Rate SP02 Pain Height Weight Body Mass Index Source Apr 18, 2024 01:36 PM 77 139/77 [facility] Apr 18, 2024 11:13 AM 98.8 64 147/[address] [facility] Social History: Smoking Status (Most current) and Tobacco Use (All prior to encounter date) This section includes the most current, and the historical, smoking and tobacco- related health factors from the [place] facility where the Encounter took place. Current Smoking Status This section includes the most current smoking, or tobacco-related health factor, from the [place] facility where the Encounter took place. 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 The data comes from the [place] facility where the Encounter took place. Date/Time Smoking Status/Tobacco Use Comment F acility Dec 05, 2019 09:44 AM VA-TOBACCO USE ADVICE [facility] Dec 05, 2019 09:44 AM VA-TOBACCO USE SENIOR PROPERTY MANAGER NO [facility] Dec 05, 2019 09:44 AM VA-TOBACCO USE MED NO [facility] Dec 05, 2019 09:44 AM VA-TOBACCO USE WI 30 MIN OF WAKEUP [facility] Dec 05, 2019 09:44 AM VA-TOBACCO USER EVERY DAY [facility] Radiology Reports: +/- 30 days of [...] the Encounter. The data comes from all [place] treatment facilities. Date/Time Radiology Report Provider Source Apr 18, 2024 11:00 AM CHEST PORTABLE: LILIANA TOLENTINO [id number] -[id number] M Ex Date: APR 18, 2024@11:00 Req Phys: MARQUES SANCHEZ Loc: [facility] PLUMBING MECHANIC (Req'g Img Loc: [facility] SUITE Service: [facility] [address] [place] [address] (Case [id number] COMPLETE) CHEST PORTABLE (RAD Detailed) CPT:00891 Proc Modifiers : Portable Reason for Study: chest pain Clinical History: Report Status: Verified Date Reported: APR 18, 2024 Date Verified: APR 18, 2024 Single End Sewer E-Sig:/ES/Orlando Dickson MD Report: CHEST PORTABLE CASE #: [id number] DATE:04/18/2024 12:07 PM CLINICAL HISTORY:chest pain COMPARISON: 09/07/2017 TECHNIQUE: CHEST PORTABLE Impression: FINDINGS/IMPRESSION: Left basilar atelectasis versus less likely pneumonia. Heart size within normal limits. No CHF. Pleural effusion. No pneumothorax. No fractures. Primary Interpreting Staff: Orlando Dickson MD, Radiologist (Single End Sewer) /ORLANDO BURGER [facility] Encounter Notes: All associated encounter notes This section contains the clinical notes associated to the Encounter. Date/Time Encounter Note(s) Provider Source Apr 18, 2024 11:28 AM PHYSICIAN EMERGENC Y DEPT NOTE: LOCAL TITLE: EMERGENCY DEPARTMENT ST STANDARD TITLE: PHYSICIAN EMERGENCY DEPT NOTE DATE OF NOTE: APR 18, 2024@11:28 ENTRY DATE: APR 18, 2024@11:28:51 AUTHOR: ASHLEY PUENTES EXP COSIGNER: URGENCY: STATUS: COMPLETED TRIAGE CHIEF COMPLAINT: Rash, pain HPI: Patient is a 73-year-old male is brought in by EMS to be evaluated for the complaint above. Patient has been having rash and itching on his back over a year. For which she was seen by dermatology 6 months ago here. He has also been experiencing hair loss and weight loss, 35 pounds over 6 months. According to him part of it was intentional. He called [facility] earlier today to schedule an appointment with his PCP but when he asked if he has been having chest pain he answered yes. It is not clear why he was asked this question since he has been trying to make an appointment to be seen for rash. Patient reports has been having intermittent chest pain for the past 6 months, intermittently. He usually has 1 episode a week which lasts for few minutes. It could be a left or right-sided. He has not noticed any modifying factors but thinks it might have been secondary to stress. Patient lost his last year. He also has been having trouble with housing. 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 Last time he experienced chest pain was 4 days ago. Currently he is asymptomatic. Denies shortness of breath, dizziness, palpitations, dyspnea exertion. He also further denies nausea/vomiting, melena/hematochezia, hematuria, night sweats. No recent urinary/fecal incontinence. REVIEW OF SYSTEMS: See HPI for further details. All 10 systems reviewed and otherwise negative unless otherwise detailed herein. PAST MEDICAL HISTORY: 1) Inguinal hernia (SNOMED CT 429194336) 2) Graves' Disease 3) Chronic gingivitis 4) Hypothyroidism * (ICD-9-CM 244.9) 5) Anemia * (ICD-9-CM 285.9) 6) Posttraumatic Stress Disorder * (ICD-9-CM 309.81) 7) Dermatitis * (ICD-9-CM 692.9) 8) Medical examinations/reports status 9) Hypothyroidism 10) Tobacco user 11) Back pain 12) Rash 13) Elevated PSA 14) Cough 15) Chest pain 16) Noncompliance with medication regimen 17) Chronic rhinitis 18) Ankle pain 19) Depression CURRENT MEDICATIONS: Active Outpatient Medications (including Supplies): Active Outpatient Medications Status 1) DUPILUMAB 150MG/ML PEN INJ 2ML INJECT 600MG UNDER THE ACTIVE SKIN ONE-TIME FOR 14 DAYS, THEN INJECT 300MG/2ML EVERY 2 WEEKS FOR ATOPIC DERMATITIS *KEEP IN REFRIGERATOR* REMOVE FROM REFRIGERATOR 45 MIN BEFORE INJECTION. 2) LEVOTHYROXINE NA (SYNTHROID) 150MCG TAB TAKE ONE ACTIVE TABLET BY MOUTH EVERY MORNING BEFORE A MEAL TAKE 30 MINUTES BEFORE FOOD. TAKE SEPARATELY FROM ALL OTHER MEDICATIONS. I have reviewed the patient's medication list with the patient and/or his/her care-housekeeper caregiver. Any medication discrepancies have been resolved. Patient will be provided with an updated list of his/her medication(s). SURGICAL HISTORY: not pertinent FAMILY HISTORY: not pertinent SOCIAL HISTORY: Social History Main Topics: Smoking status: 08/07/2017 Current Tobacco User Alcohol Use: not indorsed ____ Illicit Drug Use: not indorsed Sexual Activity: Other Topics of Concern: ALLERGIES: Review of patient's allergies indicates: Patient has answered NKA PHYSICAL EXAM: VITAL SIGNS: 147/68 (04/18/2024 11:13)64 (04/18/2024 11:13)96% (04/09/2023 14:37)98.8 F [37.1 C] (04/18/2024 11:13)16 (04/18/2024 11:13)The OBJECT WEIGHT LAST 3 was NOT found...Contact IRM. MAThe OBJECT was NOT found...Contact IRM.PAIN ASSESSMENTThe OBJECT was NOT found...Contact IRM. Measurement DT PAIN 04/18/2024 11:13 0 CONSTITUTIONAL: No acute distress, Non-toxic appearance HENT: airway patent, oropharynx clear CARDIOVASCULAR: Normal heart rate, Normal rhythm, No murmurs, No rubs, No gallops. PULMONARY/CHEST: CTA bilaterally, thorax stable without tenderness ABDOMEN: Bowel sounds normal, Soft, flat, No tenderness EXTREMITIES: Normal range of motion, Intact distal pulses, No edema, No tenderness LYMPHATIC: No LAD appreciated NEUROLOGIC: Alert & oriented x 3, Normal motor function, Normal gait, no ataxia, No focal deficits appreciated on cursory screening exam SKIN: Warm, Dry, No erythema, No rash but scratch abernathy noted on his back. LABS: WBC 7.9 10*3/uL 04/18/2024 11:04 RBC 4.86 10*6/uL 04/18/2024 11:04 HGB 15.2 g/dL 04/18/2024 11:04 HCT 46.0 % 04/18/2024 11:04 MCV 94.7 fL 04/18/2024 11:04 MCH 31.3 pg 04/18/2024 11:04 MCHC 33.0 g/dL 04/18/2024 11:04 RDW 13.1 % 04/18/2024 11:04 PLT 251 10*3/uL 04/18/2024 11:04 MPV 10.4 fL 04/18/2024 11:04 NEUTROPHILS, AUTO % 64 % 04/18/2024 11:04 LYMPHOCYTES, AUTO % 25 % 04/18/2024 11:04 MONOCYTES, AUTO % 8 % 04/18/2024 11:04 EOSINOPHILS, AUTO % 2 % 04/18/2024 11:04 BASOPHILS, AUTO % 1 % 04/18/2024 11:04 NEUTROPHILS, ABSOLUTE 5.07 10*3/uL 04/18/2024 11:04 LYMPHOCYTES, ABSOLUTE 1.99 10*3/uL 04/18/2024 11:04 MONOCYTES, ABSOLUTE 0.65 10*3/uL 04/18/2024 11:04 EOSINOPHILS, ABSOLUTE 0.13 10*3/uL 04/18/2024 11:04 BASOPHILS, ABSOLUTE 0.04 10*3/uL 04/18/2024 11:04 SODIUM 138 mEq/L 04/18/2024 11:04 POTASSIUM 4.2 mEq/L 04/18/2024 11:04 CHLORIDE 103 mEq/L 04/18/2024 11:04 UREA NITROGEN 11.7 mg/dL 04/18/2024 11:04 CREATININE 1.02 mg/dL 04/18/2024 11:04 CALCIUM 9.1 mg/dL 04/18/2024 11:04 PROTEIN 6.8 g/dL 04/18/2024 11:04 ALBUMIN 4.1 g/dL 04/18/2024 11:04 ALKALINE PHOSPHATASE 54 U/L 04/18/2024 11:04 ALT/SGPT 10 U/L 04/18/2024 11:04 AST/SGOT 19 U/L 04/18/2024 11:04 TOTAL BILIRUBIN 0.6 mg/dL 04/18/2024 11:04 CARBON DIOXIDE 27 mEq/L 04/18/2024 11:04 GLUCOSE 63 L mg/dL 04/18/2024 11:04 EGFR (CKD-EPI 2020) 76.6 04/18/2024 11:04 ____ RADIOLOGY: ECG IMPRESSION: Normal sinus rhythm. No acute ischemic changes. No arrhythmias. ED COURSE & MEDICAL DECISION MAKING: Nursing notes, medications, vital signs, allergies and pertinent labs & imaging studies reviewed (see chart for details) with lab results reviewed with patient/family and radiology X results reviewed with patient/family. Stable, alert, nontoxic, nonfocal with clinically apparent 73-year-old male presents to the ED to be evaluated for ongoing rash for over a year, and intermittent chest pain. He is currently asymptomatic; no chest pain, no shortness of breath no diaphoresis. He did not want to come to the ED but patient called to make an appointment with his PCP. 1310: Patient remains clinically and hemodynamically stable. Remains asymptomatic. No need for trop trend since he had been asymptomatic w/ CP for 3 days. He will benefit from outpatient workup for weight loss .f/u w/ PCP. He further does not c/o itching at this time. MEDICATIONS GIVEN IN ED: [ ] YES [X] NO DECISION to ADMIT / DISCHARGE TIME: 1310 discharge. DISPOSITION CONDITION:[ x ] Improved [ ] Unchanged [ ] Deteriorated CLINICAL IMPRESSION: 1 -Pruritus, resolved. 2 - 3 - DISCHARGE INSTRUCTIONS AND PATIENT-DIRECTED FOLLOW-UP RECOMMENDATIONS: DIET: regular ACTIVITY: ad sabina NEW MEDS:none MEDICATION RECONCILIATION: CONTINUE ALL PRESCRIBED MEDICATIONS DIRECTED. FOLLOW-UP WITH PRIMARY DRAMA CRITIC/SPECIALIST: routine in 1-2 weeks if not improving, sooner if worse RETURN TO EMERGENCY: if any worries or concerns ADDITIONAL SIGNATURE PCP: [ ] YES [ ] NO [ ] not listed Active Outpatient Medications (including Supplies): Active Outpatient Medications Status 1) DUPILUMAB 150MG/ML PEN INJ 2ML INJECT 600MG UNDER THE ACTIVE SKIN ONE-TIME FOR 14 DAYS, THEN INJECT 300MG/2ML EVERY 2 WEEKS FOR ATOPIC DERMATITIS *KEEP IN REFRIGERATOR* REMOVE FROM REFRIGERATOR 45 MIN BEFORE INJECTION. 2) LEVOTHYROXINE NA (SYNTHROID) 150MCG TAB TAKE ONE ACTIVE TABLET BY MOUTH EVERY MORNING BEFORE A MEAL TAKE 30 MINUTES BEFORE FOOD. TAKE SEPARATELY FROM ALL OTHER MEDICATIONS. /vince/ ASHLEY PUENTES M.D. EMERGENCY MEDICINE PHYSICIAN Signed: 04/18/2024 13:14 Receipt Acknowledged By: 04/18/2024 13:29 /vince/ DENISE AGUIRRE BSN RN CCRN REGISTERED NURSE 04/18/2024 13:23 /vince/ SHELLY JOHN MSN,CONSTRUCTION TECH-BC NURSE PRACTITIONER for ASHLEY MARINELLI [facility] Apr 18, 2024 11:10 AM EMERGENCY DEPT TRI AGE NOTE: LOCAL TITLE: EMERGENCY DEPARTMENT TRIAGE NOTE STANDARD TITLE: EMERGENCY DEPT TRIAGE NOTE DATE OF NOTE: APR 18, 2024@11:10 ENTRY DATE: APR 18, 2024@11:10:55 AUTHOR: KEZIA ALAMO COSIGNER: URGENCY: STATUS: COMPLETED EMERGENCY DEPARTMENT TRIAGE NOTE Has ADDENDA Emergency Department/Urgent Care Center Triage Patient age:73 Sex in chart: MALE Mode of Arrival: Ambulance Pre-arrival interventions: 18# IV in left AC.324 mg ASA taken bell captain. 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 Pt states it will last a few minutes then go away. Pt states he has also been having hair loss, fatigue, rash to arms and legs, and 35 lb weight loss over 6 months. Pt denies fever, SOB, N/V/D, and dizziness. PT's respirations are even and unlabored. Level of Consciousness (AVPU): Alert = Appears aware of and responsive to the environment on their own. Follows commands, opens eyes spontaneously, and tracks objects. Vital Signs: Temperature 98.8 F (37.1 C) Pulse 64 Respirations 16 Blood Pressure 147/68 Pulse Oximetry 98 Room Air National Early Warning Score (NEWS): The NEWS total is 0. 1. Temperature (C/F): Score = 0 36.1 - 38.0 C (96.9 - 100.4 F) 2. Pulse: Score = 0 51-90 3. Respirations: Score = 0 12-20 4. Blood Pressure (Only Systolic BP, mmHg): Score = 0 111-219 5. Pulse Oximetry: Score = 0 96% or greater 6. Supplemental oxygen in use: Score = 0 No 7. AVPU: Score = 0 Alert Pain: DVPRS Scale Location: [facility] Pain Rating Scale (DVPRS): Pain Score: 0 Patient's acceptable pain goal: Suicide Screen: Andrew Suicide Severity Rating Scale (C-SSRS) screener 1. Over the past month, have you wished you were or wished you could go to sleep and not wake up? No 2. Over the past month, have you had any actual thoughts of killing yourself? No 3. Over the past month, have you been thinking about how you might do this? Response not required due to responses to other questions. 4. Over the past month, have you had these thoughts and had some intention of acting on them? Response not required due to responses to other questions. 5. Over the past month, have you started to work out or worked out the details of how to kill yourself? Response not required due to responses to other questions. 6. If yes, at any time in the past month did you intend to carry out this plan? Response not required due to responses to other questions. 7. In your lifetime, have you ever done anything, started to do anything, or prepared to do anything to end your life (for example, collected pills, obtained a gun, gave away valuables, went to the roof but didn't jump)? No 8. If YES, was this within the past 3 months? Response not required due to responses to other questions. Emergency Severity Index (RK) level: Level 3 Previously documented allergies: Patient has answered NKA Current Problems: 1) Inguinal hernia (SNOMED CT [id number]) 2) Graves' Disease 3) Chronic gingivitis 4) Hypothyroidism * (ICD-9-CM 244.9) 5) Anemia * (ICD-9-CM 285.9) 6) Posttraumatic Stress Disorder * (ICD-9-CM 309.81) 7) Dermatitis * (ICD-9-CM 692.9) 8) Medical examinations/reports status 9) Hypothyroidism 10) Tobacco user 11) Back pain 12) Rash 13) Elevated PSA 14) Cough 15) Chest pain 16) Noncompliance with medication regimen 17) Chronic rhinitis 18) Ankle pain 19) Depression /vince/ KEZIA ALAMO RN BSN REGISTERED NURSE Signed: 04/18/2024 11:15 04/18/2024 ADDENDUM STATUS: COMPLETED 1117 EKG complete. Pt attached to cardiac, BP, and pulse oximetry monitoring. Blood drawn and sent to lab. 1224 Pt resting comfortably, awaiting test results. 1330 IV discontinued without issue. Pt ambulated to exit. Blood Pressure: 139/77 Pulse: 77 Pulse Oximetry: 98% /vince/ KEZIA ALAMO RN BSN REGISTERED NURSE Signed: 04/18/2024 13:40 KEZIA ALAMO [facility]
[2024-10-04 12:15] VITALS: BP 136/94; PULSE 69; RESP 16; TEMP 36.8; O2SAT 98
[2024-10-04 12:24] LABS: Basophils Absolute Auto 0.1 K/mm3 (0.0-0.1); Basophils Percent Auto 0.7 % (0.2-1.2); Eosinophils Absolute Auto 0.2 K/mm3 (0-0.3); Eosinophils Percent Auto 3.4 % (0-4.4); Hematocrit 45.2 % (42.0-52.0); Hemoglobin 14.5 g/dL (14.0-18.0); Immature Granulocyte Absolute 0.03 K/mm3 (0.00-0.031); Immature Granulocyte Percent A 0.4 % (0-0.5); Lymphocytes Absolute Auto 2.13 K/mm3 (0.9-3.2); Lymphocytes Percent Auto 30.3 % (18.3-44.2); Mean Corpuscular HGB Conc 32.1 g/dl (32-36); Mean Corpuscular Volume 96.6 fl (80-100); Mean Platelet Volume 10.3 fl (7.4-10.4); Monocytes Absolute Auto 0.4 K/mm3 (0.1-0.6); Monocytes Percent Auto 5.4 % (2.6-8.5); Neutrophils Absolute Auto 4.2 K/mm3 (1.3-6.7); Neutrophils Percent Auto 59.8 % (45.5-73.1); Platelet Count Result 199 k/mm3 (150-375); Red Blood Count 4.68 M/mm3 (4.6-6.20); Red Cell Distribution Width 13.4 % (11.5-14.5)
[2024-10-04 12:32] LABS: Alanine Aminotransferase 27 U/L (6-50); Albumin Level 4.2 g/dL (3.5-5.1); Alkaline Phosphatase 37 U/L (38-126); Anion Gap 3 mmol/L (4-12); Aspartate Amino Transferase 77 U/L (17-59); Bilirubin,Total 0.7 mg/dL (0.2-1.3); Blood Urea Nitrogen 11 mg/dL (9-20); Calcium 8.8 mg/dL (8.4-10.2); Carbon Dioxide 32 mmol/L (22-30); Chloride 98 mmol/L (98-107); Estimated CRCL calculation 31 ml/min; Estimated Glomerular Filt Rate 45; Glucose 93 mg/dL (65-110); Lipase 139 U/L (23-300); Potassium 4.1 mmol/L (3.4-5.0); Sodium 133 mmol/L (137-145)
[2024-10-04 12:37] LABS: INR 0.9; Prothrombin Time 12.8 Seconds (11.1-14.7)
[2024-10-04 12:38] LABS: Partial Thromboplastin Time 31.5 Seconds (22.3-36.8)
[2024-10-04 12:44] LABS: Troponin I < 0.012 ng/mL (0.000-0.034)
--- NOTE | 2024-10-04 14:22 | ED.CHESTPAIN ---
HPI - Chest Pain General Chief Complaint: Chest Pain <TAMEKA Carlton Last Filed: 10/04/24 14:34> Stated Complaint: Chest pain -no heart history <TAMEKA Carlton Last Filed: 10/04/24 14:34> Time Seen by Provider: 10/04/24 14:22 <TAMEKA Carlton Last Filed: 10/04/24 14:34> Focused HPI: Patient is a 74 y/o male who presents to the ED with c/o CP. Patient reports he has been having intermittent pain across his chest for the past 2 weeks. States it has been mild and brief. Pain began again around 9am this morning and was more severe than usual. States it has been persistent. Worse with deep breathing, worse with stressful situations. Has been feeling short of breath. Reports cough and rhinorrhea for the past few weeks. Reports intermittent pain/swelling in apple feet. Denies fevers. He is a smoker. Denies previous heart issues. Also reports having apple blurry vision, worse in the R eye, since last week. Had an episode of vertigo last week after turning to look at a sign and developed vision changes afterwards. Denies current dizziness/lightheadedness. Feels like his eyes are swollen. GENERAL: Elderly-appearing, thin, and in no acute distress. HEAD: Normocephalic, atraumatic. EYES: PERRL/EOMI, conjunctiva clear CHEST: Clear to auscultation. ?No respiratory distress. No significant focal lung sounds. HEART: Regular rate and rhythm.? NEURO: ?Alert and oriented x3. Patient screened in triage and initial orders placed.? ?Additional care and disposition to be based upon?diagnostic testing and treatment. <Mary Cruz PA-C - Last Filed: 10/04/24 14:34> Focused HPI: Patient is a 74 y/o male who presents to the ED with c/o CP. Patient reports he has been having intermittent pain across his chest for the past 2 weeks. States it has been mild and brief. Pain began again around 9am this morning and was more severe than usual. States it has been persistent. Worse with deep breathing, worse with stressful situations. Has been feeling short of breath. Reports cough and rhinorrhea for the past few weeks. Reports intermittent pain/swelling in apple feet. Denies fevers. He is a smoker. Denies previous heart issues. GENERAL: Elderly-appearing, thin, and in no acute distress. HEAD: Normocephalic, atraumatic. EYES: PERRL/EOMI, conjunctiva clear CHEST: Clear to auscultation. ?No respiratory distress. No significant focal lung sounds. HEART: Regular rate and rhythm.? NEURO: ?Alert and oriented x3. Patient screened in triage and initial orders placed.? ?Additional care and disposition to be based upon?diagnostic testing and treatment. <Cj Gonzalez MD - Last Filed: 10/04/24 21:17> Source: patient <Mary Cruz PA-C - Last Filed: 10/04/24 14:34> Mode of arrival: ambulatory <Mary Cruz PA-C - Last Filed: 10/04/24 14:34> Limitations: no limitations <Mary Cruz PA-C - Last Filed: 10/04/24 14:34> History of Present Illness HPI narrative: I agree with the above HPI <Cj Gonzalez MD - Last Filed: 10/04/24 21:17> Related Data Allergies/Adverse Reactions: Allergies Allergy/AdvReac Type Severity Reaction Status Date / Time No Known Allergies Allergy Verified 10/04/24 12:00 <Mary Cruz PA-C - Last Filed: 10/04/24 14:34> Review of Systems Review of Systems: All systems reviewed & are unremarkable except as noted in HPI and below <Cj Gonzalez MD - Last Filed: 10/04/24 21:17> [facility] Past Medical History Medical History: Medical History BPH (benign prostatic hyperplasia) hx of prostate bx Hernia Hyperthyroidism He denies that he had thyroid ablation Hypothyroid Smoking <Mary Cruz PA-C - Last Filed: 10/04/24 14:34> Surgical History Surgical History: Surgical History History of hernia surgery He denies <Mary Cruz PA-C - Last Filed: 10/04/24 14:34> Family History Family History: Family History Father Family history of tuberculosis, Onset Age: 80 Patient's father is Sibling Family history of osteoarthritis Family history of chronic obstructive pulmonary disease Mother Patient's mother is <Mary Cruz PA-C - Last Filed: 10/04/24 14:34> Social History Social History: Social History Social History: lives with a female friend and his [id number]. He sleeps on the couch. Denies hx of other drug use. No hx of IVDU. Full code. He nominates Ana Ellison (cousin) to be the one to make medical desicions for him if he is unable. Smoking packs per day: 0.5 Smoking cigarettes per day: 10.0 Years smoked: 60 Smoking pack-years: 30.00 Smoking status: Current every day smoker Tobacco type: cigarettes Second hand tobacco smoke exposure: Yes Alcohol intake: current Drinks per week: 4 Substance use: current Substance use type: marijuana Last use: 10/30/23 Do You Feel Safe in your Home?: Yes Lack of Transportation: No Lack of Food: Never True Current Housing: I Have Housing Concerned About Future Housing: YES Difficulty Paying Gas/Electric Bills: No Difficulty Paying for Meds: No Currently Unemployed: No Education: High School Diploma/GED Difficulty w/ Childcare or Family Care: No Living arrangements: with family Occupation/Education: retired Gender identity (if verbalized by the patient): Male Spiritual care concerns: No <Mary Cruz PA-C - Last Filed: 10/04/24 14:34> Exam Narrative: APPEARANCE: Well appearing, no pain, no distress, well-nourished. HEAD: normocephalic, atraumatic. EYES: PERRLA/EOMI, conjunctivae clear. NOSE: Normal no drainage EARS:TMS clear with good light reflex. THROAT: Pharynx clear, no exudate. NECK: Supple. No adenopathy, no masses. RESPIRATORY: Airway patent, respirations nonlabored. Clear to auscultation bilaterally, no rales, rhonchi, wheezing. CARDIOVASCULAR: Regular rate and rhythm without murmurs rubs or gallops. ABDOMINAL: Soft, nontender, nondistended, normal bowel sounds MUSCULOSKELETAL: Reproducible lower chest wall tenderness to palpation NEURO: Alert. Cranial nerves II through XII intact. Good gait. Good coordination SKIN: Warm, dry. Normal Color <Cj Gonzalez MD - Last Filed: 10/04/24 21:17> Course Vital Signs Vital signs: Vital Signs Temperature 98.2 F 10/04/24 12:15 Pulse Rate 69 10/04/24 12:15 Respiratory Rate 16 10/04/24 12:15 Blood Pressure 136/94 H 10/04/24 12:15 Pulse Oximetry 98 10/04/24 12:15 Oxygen Delivery Room Air 10/04/24 12:15 Temperature 97.6 F 10/04/24 18:15 Pulse Rate 67 10/04/24 18:15 Respiratory Rate 18 10/04/24 18:15 Blood Pressure 161/90 H 10/04/24 18:15 Pulse Oximetry 98 10/04/24 18:15 Oxygen Delivery Room Air 10/04/24 15:50 <Mary Cruz PA-C - Last Filed: 10/04/24 14:34> Vital Signs Temperature 98.2 F 10/04/24 12:15 Pulse Rate 69 10/04/24 12:15 Respiratory Rate 16 10/04/24 12:15 Blood Pressure 136/94 H 10/04/24 12:15 Pulse Oximetry 98 10/04/24 12:15 Oxygen Delivery Room Air 10/04/24 12:15 Temperature 97.6 F 10/04/24 18:15 Pulse Rate 67 10/04/24 18:15 Respiratory Rate 18 10/04/24 18:15 Blood Pressure 161/90 H 10/04/24 18:15 Pulse Oximetry 98 10/04/24 18:15 Oxygen Delivery Room Air 10/04/24 15:50 <Cj Gonzalez MD - Last Filed: 10/04/24 21:17> MDM - Chest Pain MDM Narrative Medical decision making narrative: MSE by TERRI in triage. <Mary Cruz PA-C - Last Filed: 10/04/24 14:34> MSE by TERRI in triage. 74-year-old male presents emergency department for evaluation for intermittent left-sided chest pain. Patient is currently afebrile with no leukocytosis hemoglobin of 14.5. Patient has an INR of 0.9. Patient has a creatinine of 1.51 mildly elevated compared to a creatinine of 1.2 approximately 1 year ago. Patient has negative serial troponins. Patient's proBNP is not elevated. Patient does have an elevated thyroid and a low free T4. Patient reports he does have a prior history of hypothyroid but has not been taking his medications. Patient did have a head CT which showed no acute intracranial abnormality. Chest x-ray showed normal chest and CTA chest showed no evidence of pulmonary embolism but did show concern for pneumonia. Patient's chest pain is worsened with deep inspiration and is very pleuritic in nature. Has no prior history of coronary artery disease, patient denies hypertension high cholesterol. Patient will be treated for underlying pneumonia. Patient prefers to be discharged home rather than have inpatient cardiac rule out. Patient prefers to have follow-up with primary care physician. <Cj Gonzalez MD - Last Filed: 10/04/24 21:17> Differential Diagnosis Differential diagnosis: Likely fracture of rib, pneumothorax, stable angina, unstable angina pectoris, atypical chest pain, st elevation myocardial infarction, costochondritis, chest pain, biliary colic and other <Cj Gonzalez MD - Last Filed: 10/04/24 21:17> Lab Data Attestation: I reviewed the patient's lab results. <Cj Gonzalez MD - Last Filed: 10/04/24 21:17> Result diagrams: 10/04/24 12:12 10/04/24 12:12 <Mary Cruz PA-C - Last Filed: 10/04/24 14:34> Labs: Lab Results 10/04/24 10/04/24 10/04/24 Range/Units 12:12 14:27 15:59 WBC 7.0 (4.5-10.0) K/mm3 RBC 4.68 (4.6-6.20) M/mm3 Hgb 14.5 (14.0-18.0) g/dL Hct 45.2 (42.0-52.0) % MCV 96.6 (80-100) fl MCH 31.0 (26-34) pg MCHC 32.1 (32-36) g/dl RDW 13.4 (11.5-14.5) % Plt Count 199 (150-375) k/mm3 MPV 10.3 (7.4-10.4) fl Immature Gran % (Auto) 0.4 (0-0.5) % Neut % (Auto) 59.8 (45.5-73.1) % Lymph % (Auto) 30.3 (18.3-44.2) % Swisher % (Auto) 5.4 (2.6-8.5) % Eos % (Auto) 3.4 (0-4.4) % Baso % (Auto) 0.7 (0.2-1.2) % Lymph # (Auto) 2.13 (0.9-3.2) K/mm3 Swisher # (Auto) 0.4 (0.1-0.6) K/mm3 Eos # (Auto) 0.2 (0-0.3) K/mm3 Baso # (Auto) 0.1 (0.0-0.1) K/mm3 Abs Immat Gran (auto) 0.03 (0.00-0.031) K/mm3 Absolute Neuts (auto) 4.2 (1.3-6.7) K/mm3 Absolute Nucleated RBC 0.000 (0.0-0.012) K/mm3 Nucleated RBC % 0.0 (0.0-0.2) % PT 12.8 (11.1-14.7) Seconds INR 0.9 APTT 31.5 (22.3-36.8) Seconds Sodium 133 L (137-145) mmol/L Potassium 4.1 (3.4-5.0) mmol/L Chloride 98 (98-107) mmol/L Carbon Dioxide 32 H (22-30) mmol/L Anion Gap 3 L (4-12) mmol/L BUN 11 (9-20) mg/dL Creatinine 1.51 H (0.7-1.3) mg/dL Estim Creat Clear Calc 31 ml/min Estimated GFR 45 L (59 - ) Glucose 93 (65-110) mg/dL Calcium 8.8 (8.4-10.2) mg/dL Total Bilirubin 0.7 (0.2-1.3) mg/dL AST 77 H (17-59) U/L ALT 27 (6-50) U/L Alkaline Phosphatase 37 L (38-126) U/L Troponin I < 0.012 < 0.012 (0.000-0.034) ng/mL NT-Pro-B Natriuret Pep 170 H (19.9-100) pg/mL Total Protein 7.0 (6.3-8.2) g/dL Albumin 4.2 (3.5-5.1) g/dL Lipase 139 (23-300) U/L TSH (Reflex) > 100.000 H (0.465-4.68) uIU/mL Free T4 < 0.07 L (0.78-2.19) ng/dL <Mary Cruz PA-C - Last Filed: 10/04/24 14:34> Lab Results 10/04/24 10/04/24 10/04/24 Range/Units 12:12 14:27 15:59 WBC 7.0 (4.5-10.0) K/mm3 RBC 4.68 (4.6-6.20) M/mm3 Hgb 14.5 (14.0-18.0) g/dL Hct 45.2 (42.0-52.0) % MCV 96.6 (80-100) fl MCH 31.0 (26-34) pg MCHC 32.1 (32-36) g/dl RDW 13.4 (11.5-14.5) % Plt Count 199 (150-375) k/mm3 MPV 10.3 (7.4-10.4) fl Immature Gran % (Auto) 0.4 (0-0.5) % Neut % (Auto) 59.8 (45.5-73.1) % Lymph % (Auto) 30.3 (18.3-44.2) % Swisher % (Auto) 5.4 (2.6-8.5) % Eos % (Auto) 3.4 (0-4.4) % Baso % (Auto) 0.7 (0.2-1.2) % Lymph # (Auto) 2.13 (0.9-3.2) K/mm3 Swisher # (Auto) 0.4 (0.1-0.6) K/mm3 Eos # (Auto) 0.2 (0-0.3) K/mm3 Baso # (Auto) 0.1 (0.0-0.1) K/mm3 Abs Immat Gran (auto) 0.03 (0.00-0.031) K/mm3 Absolute Neuts (auto) 4.2 (1.3-6.7) K/mm3 Absolute Nucleated RBC 0.000 (0.0-0.012) K/mm3 Nucleated RBC % 0.0 (0.0-0.2) % PT 12.8 (11.1-14.7) Seconds INR 0.9 APTT 31.5 (22.3-36.8) Seconds Sodium 133 L (137-145) mmol/L Potassium 4.1 (3.4-5.0) mmol/L Chloride 98 (98-107) mmol/L Carbon Dioxide 32 H (22-30) mmol/L Anion Gap 3 L (4-12) mmol/L BUN 11 (9-20) mg/dL Creatinine 1.51 H (0.7-1.3) mg/dL Estim Creat Clear Calc 31 ml/min Estimated GFR 45 L (59 - ) Glucose 93 (65-110) mg/dL Calcium 8.8 (8.4-10.2) mg/dL Total Bilirubin 0.7 (0.2-1.3) mg/dL AST 77 H (17-59) U/L ALT 27 (6-50) U/L Alkaline Phosphatase 37 L (38-126) U/L Troponin I < 0.012 < 0.012 (0.000-0.034) ng/mL NT-Pro-B Natriuret Pep 170 H (19.9-100) pg/mL Total Protein 7.0 (6.3-8.2) g/dL Albumin 4.2 (3.5-5.1) g/dL Lipase 139 (23-300) U/L TSH (Reflex) > 100.000 H (0.465-4.68) uIU/mL Free T4 < 0.07 L (0.78-2.19) ng/dL <Cj Gonzalez MD - Last Filed: 10/04/24 21:17> Imaging Data Radiologist's impression: Impressions Chest X-Ray 10/04/24 12:59 Impression: Normal chest. Head CT 10/04/24 15:33 IMPRESSION: No acute intracranial findings. Chest CTA 10/04/24 15:44 IMPRESSION: 1. No pulmonary embolism. 2. Pericardial effusion. 3. Impression 4. Minimal groundglass appearance in the left lung base which may indicate atelectasis versus pneumonia. Otherwise, No acute cardiopulmonary pathology. <Cj Gonzalez MD - Last Filed: 10/04/24 21:17> Discharge Plan Discharge Clinical Impression: Pneumonia, Chest pain, pleuritic <Mary Cruz PA-C - Last Filed: 10/04/24 14:34> Patient Disposition: Home <TAMEKA Carlton Last Filed: 10/04/24 14:34> Condition: Stable <Mary Cruz PA-C - Last Filed: 10/04/24 14:34> Instructions: Antibiotic Form, Chest Pain (ED), Pleurisy (ED), Pneumonia (ED) <Mary Cruz PA-C - Last Filed: 10/04/24 14:34> Additional Instructions: Albuterol for shortness of breath and Tessalon Perles for cough. Antibiotics as directed until completed. Have close follow-up with your primary care physician for follow-up and for additional outpatient cardiac testing. If you have any worsening symptoms then please call or return to the emergency department. You are being provided a refill for your levothyroxine <Mary Cruz PA-C - Last Filed: 10/04/24 14:34> Patient Language: Wolof <Mary Cruz PA-C - Last Filed: 10/04/24 14:34> Prescriptions: New azithromycin 250 mg tablet See Rx Instructions .ROUTE .COMPLEX Qty: 6 0RF Rx Instructions: For 250 mg dose pack: take 500 mg today (day 1), then 250 mg for 4 days (days 2-5) benzonatate 100 mg capsule 100 mg PO TID PRN (Reason: cough) Qty: 14 0RF albuterol sulfate 90 mcg/actuation HFA aerosol inhaler 1 puff inhalation QID Qty: 6.7 0RF amoxicillin-pot clavulanate 875-125 mg tablet 1 tablet PO Q12H 7 Days Qty: 14 0RF levothyroxine 100 mcg capsule 100 mcg PO DAILY 28 Days Qty: 28 0RF No Action nicotine 14 mg/24 hr Patch 24 Hour 1 patch transdermal QAM Qty: 30 0RF cyanocobalamin (vitamin B-12) [Vitamin B-12] 1,000 mcg Tablet 1,000 mcg PO QAM Qty: 30 2RF levothyroxine [Synthroid] 100 mcg Tablet 100 mcg PO DAILY@0630 Qty: 30 2RF doxycycline hyclate 100 mg tablet 100 mg PO BID Qty: 14 0RF benzonatate 200 mg capsule 200 mg PO TID PRN (Reason: cough) Qty: 21 0RF albuterol sulfate 90 mcg/actuation HFA aerosol inhaler 2 puff inhalation QID PRN (Reason: shortness of breath or wheezing) Qty: 8.5 0RF prednisone 20 mg tablet 40 mg PO DAILY 5 Days Qty: 10 0RF <Mary Cruz PA-C - Last Filed: 10/04/24 14:34> Follow-up/Referrals: [facility] [Primary Care Provider] - <Mary Cruz PA-C - Last Filed: 10/04/24 14:34> Stand Alone Forms: Work/School Release IP <Mary Cruz PA-C - Last Filed: 10/04/24 14:34> Quality HEART score for chest pain patients History: slightly suspicious <Cj Gonzalez MD - Last Filed: 10/04/24 21:17> ECG: normal <Cj Gonzalez MD - Last Filed: 10/04/24 21:17> Age: > or = to 65 years <Cj Gonzalez MD - Last Filed: 10/04/24 21:17> Risk factors: 1 or 2 risk factors <Cj Gonzalez MD - Last Filed: 10/04/24 21:17> Troponin: < or = to 1x normal limit <Cj Gonzalez MD - Last Filed: 10/04/24 21:17> Heart score: 3 <Cj Gonzalez MD - Last Filed: 10/04/24 21:17>
--- OUTSIDE RECORDS SUMMARY | 2024-10-04 14:36 | XMS_ITS | Continuity of Care Document ---
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 It does not include entries that were removed or entered in error. Problem Status Onset Date Problem Type Date of Resolution Comments Source Anemia * (ICD-9-CM 285.9) Active Condition [facility] Ankle pain Active Condition [facility] Back pain Active Condition [facility] Chest pain Active Condition [facility] Chronic gingivitis Active Condition [facility] Chronic rhinitis Active Condition [facility] Cough Active Condition [facility] Depression Active Condition [facility] Dermatitis * (ICD-9-CM 692.9) Active Condition [facility] Elevated PSA Active Condition [facility] Graves' Disease Active Condition [facility] Hypothyroidism Active Condition [facility] Hypothyroidism * (ICD-9-CM 244.9) Active Condition [facility] Inguinal hernia (SNOMED CT [id number]) Active Condition [facility] Loss of scalp hair Active Condition [facility] Medical examinations/report s status Active Condition [facility] Noncompliance with medication regimen Active Condition [facility] Posttraumatic Stress Disorder * (ICD-9-CM 309.81) Active Condition [facility] Rash Active Condition [facility] Tobacco user Active Condition [facility] Weight loss Active Condition [facility] Diagnosis: ICD-10-CM E03.9 Hypothyroidism, unspecified Active Diagnosis [facility] Diagnosis: ICD-10-CM R21 Rash and other nonspecific skin eruption Active Diagnosis [facility] Diagnosis: ICD-10-CM L29.9 Pruritus, unspecified Active Diagnosis [facility] Diagnosis: ICD-10-CM Z12.2 Encntr screen for malignant neoplasm of respiratory organs Active Diagnosis [facility] Diagnosis: ICD-10-CM L30.8 Other specified dermatitis Active Diagnosis [facility] Medications Combined list of outpatient medications from [...] OPHEN (APAP) FROM ALL MEDS. ORAL 06/02/2024 [id number] GLORY JONES ONICA R 2023 200 [facility] AZITHROMYCI N 250MG TAB TAKE TWO TABLETS BY MOUTH ONCE A DAY FOR 1 DAY, THEN TAKE ONE TABLET ONCE A DAY FOR 4 DAYS FOR BRONCHIT IS TAKE UNTIL GONE. DO NOT TAKE WITH ALUMINUM OR MAGNESIU M ANTACIDS . ORAL 07/13/2024 [id number] Mamta STONE 2024 6 [facility] BENZONATATE 100MG CAP TAKE ONE CAPSULE BY MOUTH THREE TIMES A DAY NEEDED FOR COUGH ORAL 07/13/2024 [id number] Mamta [address] [facility] 2024 30 [facility] HYDROPHILIC (EQV EUCERIN) CREAM,TOP APPLY LIBERALL Y TO AFFECTED AREA(S) THREE TIMES A DAY NEEDED (EXTERNA L USE ONLY) TOPICA L ACTIVE 05/04/2025 [id number] GLORY JONES ONICA R 2023 454 [facility] LEVOTHYROXI NE NA 150MCG TAB TAKE ONE TABLET BY MOUTH EVERY MORNING BEFORE A MEAL TAKE 30 MINUTES BEFORE FOOD. TAKE SEPARATE LY FROM ALL OTHER MEDICATI ONS. ORAL HOLD 06/14/2025 [id number] 5 VALENTEMamta SOTO [facility] 2024 30 [facility] LEVOTHYROXI NE NA 150MCG TAB TAKE ONE TABLET BY MOUTH EVERY MORNING BEFORE A MEAL TAKE 30 MINUTES BEFORE FOOD. TAKE SEPARATE LY FROM ALL OTHER MEDICATI ONS. ORAL DISCONT INUED 02/12/2025 [id number] [address] VAL[address]ta [address] [facility] 2023 30 [facility] LEVOTHYROXI NE NA 150MCG TAB (SYNTHROID) TAKE ONE TABLET BY MOUTH EVERY MORNING BEFORE A MEAL TAKE 30 MINUTES BEFORE FOOD. TAKE SEPARATE LY FROM ALL OTHER MEDICATI ONS. ORAL DISCONT INUED 02/12/2025 [id number] 4 Mamta STONE [facility] 2023 90 [facility] MULTIVITAMI NS CAP/TAB TAKE 1 TABLET BY MOUTH ONCE A DAY ORAL ACTIVE 05/04/2025 [id number] 4 KAREN,GLORY ONICA R 2023 30 [facility] NAPROXEN 500MG TAB TAKE ONE TABLET BY MOUTH TWICE A DAY TAKE WITH FOOD. ORAL ACTIVE 05/04/2025 [id number] 4 KAREN,GLORY ONICA R 2023 60 [facility] TRIAMCINOLO NE ACETONIDE 0.1% CREAM,TOP APPLY LIGHTLY TO AFFECTED AREA(S) TWICE A DAY (EXTERNA L USE ONLY) TOPICA L 06/02/2024 [id number] 4 KAREN,GLORY ONICA R 2023 80 [facility] Immunizations Combined list of available immunizations from the Department of Defense and Veterans Affairs facilities. Immunization Series Date Given Administered By Site Reaction Lot Number CVX Code Drug Survey Rodman Status Comments Source COVID-19 (PFIZER), MRNA, LNP-S, PF, ANNY-SUCROSE, 30 MCG/0.3 ML (AGES 12+ YEARS) 1 2022 LILLY MCKEON RIGHT DELTO ID [id number] 309 complet ed [facility] INFLUENZA, HIGH-DOSE, QUADRIVALENT 2022 LILLY MCKEON LEFT DELTO ID [id number] A 197 complet ed Completed Series, [facility] COVID-19 ([place] Yard), MRNA, LNP-S, BIVALENT BOOSTER, PF, 30 MCG/0.3 ML DOSE 1 2021 300 complet ed PFR; [id number]; 3 [facility] INFLUENZA VACCINE, QUADRIVALENT, ADJUVANTED 2021 205 complet ed [facility] INFLUENZA VACCINE, QUADRIVALENT, ADJUVANTED 2020 205 complet ed [facility] COVID-19 ([place]), MRNA, LNP-S, PF, 30 MCG/0.3 ML DOSE 2 2020 208 complet ed [facility] COVID-19 ([place]), MRNA, LNP-S, PF, 30 MCG/0.3 ML DOSE 1 2020 208 complet ed [facility] INFLUENZA, INJECTABLE, QUADRIVALENT, PRESERVATIVE FREE 2017 150 complet ed [facility] TDAP 2017 115 complet ed Left Deltoid [facility] INFLUENZA, UNSPECIFIED FORMULATION 2005 88 complet ed [facility] INFLUENZA, UNSPECIFIED FORMULATION 2004 88 complet ed [facility] TD(ADULT) UNSPECIFIED FORMULATION 2004 139 complet ed [facility] Results Combined list of recent chemistry, hematology and other laboratory results from Department of Defense and Veterans Affairs, ranging from 15 months to all on record, depending upon the facility. Order Name Results Value Reference Range Date Interpretation Specimen Comments Source CBC LEUKOCYTES [#/VOLUME] IN BLOOD BY AUTOMATED COUNT 8.0 10*3/u L 3.6 - 11.2 06/13 Specimen Type: BLOOD No comment entered. Ordering Provider: ELLIE STONE Report Released Date/Time: Jun 13, 2024 03:30 PM Reporting Lab: [facility] [place] [address] Performing Lab: [facility] CBC ERYTHROCYTE S [#/VOLUME] IN BLOOD BY AUTOMATED COUNT 4.54 10*6/u L 4.10 - 5.70 06/13 Specimen Type: BLOOD No comment entered. Ordering Provider: ELLIE STONE Report Released Date/Time: Jun 13, 2024 03:30 PM Reporting Lab: [facility] [place] [address] Performing Lab: [facility] CBC HEMOGLOBIN [MASS/VOLUM E] IN BLOOD 14.4 g/dL 13.1 - 16.8 06/13 Specimen Type: BLOOD No comment entered. Ordering Provider: ELLIE STONE Report Released Date/Time: Jun 13, 2024 03:30 PM Reporting Lab: [facility] [place] [address] Performing Lab: [facility] CBC HEMATOCRIT [VOLUME FRACTION] OF BLOOD 40.7 38.2 - 48.4 06/13 Specimen Type: BLOOD No comment entered. Ordering Provider: ELLIE STONE Report Released Date/Time: Jun 13, 2024 03:30 PM Reporting Lab: [facility] [place] [address] Performing Lab: [facility] CBC MCV [ENTITIC VOLUME] BY AUTOMATED COUNT 89.6 fL 80.0 - 100.0 06/13 Specimen Type: BLOOD No comment entered. Ordering Provider: ELLIE STONE Report Released Date/Time: Jun 13, 2024 03:30 PM Reporting Lab: [facility] [place] [address] Performing Lab: [facility] CBC MCH [ENTITIC MASS] BY AUTOMATED COUNT 31.7 pg 27.0 - 34.0 06/13 Specimen Type: BLOOD No comment entered. Ordering Provider: ELLIE STONE Report Released Date/Time: Jun 13, 2024 03:30 PM Reporting Lab: [facility] [place] [address] Performing Lab: [facility] [facility] CBC MCHC [MASS/VOLUM E] BY AUTOMATED COUNT 35.4 g/dL 33.0 - 36.0 06/13 Specimen Type: BLOOD No comment entered. Ordering Provider: ELLIE STONE Report Released Date/Time: Jun 13, 2024 03:30 PM Reporting Lab: [facility] [place] [address] Performing Lab: [facility] CBC PLATELETS [#/VOLUME] IN BLOOD BY AUTOMATED COUNT 184 10*3/u L 150 - 400 06/13 Specimen Type: BLOOD No comment entered. Ordering Provider: ELLIE STONE Report Released Date/Time: Jun 13, 2024 03:30 PM Reporting Lab: [facility] [place] [address] Performing Lab: [facility] [facility]ISION CBC PLATELET MEAN VOLUME [ENTITIC VOLUME] IN BLOOD BY AUTOMATED COUNT 10.0 fL 7.5 - 11.2 06/13 Specimen Type: BLOOD No comment entered. Ordering Provider: ELLIE STONE Report Released Date/Time: Jun 13, 2024 03:30 PM Reporting Lab: [facility] [place] [address] Performing Lab: [facility] CBC ERYTHROCYTE DISTRIBUTIO N WIDTH [RATIO] BY AUTOMATED COUNT 12.1 11.8 - 15.1 06/13 Specimen Type: BLOOD No comment entered. Ordering Provider: ELLIE STONE Report Released Date/Time: Jun 13, 2024 03:30 PM Reporting Lab: [facility] [place] [address] Performing Lab: [facility] DIVISION CBC LYMPHOCYTES /100 LEUKOCYTES IN BLOOD BY AUTOMATED COUNT 22 06/13 Specimen Type: BLOOD No comment entered. Ordering Provider: ELLIE STONE Report Released Date/Time: Jun 13, 2024 03:30 PM Reporting Lab: [facility] [place] [address] Performing Lab: [facility] DIVISION CBC MONOCYTES/1 00 LEUKOCYTES IN BLOOD BY AUTOMATED COUNT 11 06/13 Specimen Type: BLOOD No comment entered. Ordering Provider: ELLIE STONE Report Released Date/Time: Jun 13, 2024 03:30 PM Reporting Lab: [facility] [place] [address] Performing Lab: [facility] DIVISION CBC NEUTROPHILS /100 LEUKOCYTES IN BLOOD BY AUTOMATED COUNT 65 02/03 /2025 Specimen Type: BLOOD No comment entered. Ordering Provider: ELLIE STONE Report Released Date/Time: Jun 13, 2024 03:30 PM Reporting Lab: [facility] [place] [address] Performing Lab: [facility] DIVISION CBC EOSINOPHILS /100 LEUKOCYTES IN BLOOD BY AUTOMATED COUNT 2 06/13 Specimen Type: BLOOD No comment entered. Ordering Provider: ELLIE STONE Report Released Date/Time: Jun 13, 2024 03:30 PM Reporting Lab: [facility] [place] [address] Performing Lab: [facility] DIVISION CBC BASOPHILS/1 00 LEUKOCYTES IN BLOOD BY AUTOMATED COUNT 0 06/13 Specimen Type: BLOOD No comment entered. Ordering Provider: ELLIE STONE Report Released Date/Time: Jun 13, 2024 03:30 PM Reporting Lab: [facility] [place] [address] Performing Lab: [facility] DIVISION CBC LYMPHOCYTES [#/VOLUME] IN BLOOD BY AUTOMATED COUNT 1.77 10*3/u L 0.77 - 4.50 06/13 Specimen Type: BLOOD No comment entered. Ordering Provider: ELLIE STONE Report Released Date/Time: Jun 13, 2024 03:30 PM Reporting Lab: [facility] [place] [address] Performing Lab: [facility] [facility]ISION CBC MONOCYTES [#/VOLUME] IN BLOOD BY AUTOMATED COUNT 0.90 10*3/u L 0.19 - 0.80 06/13 H Specimen Type: BLOOD No comment entered. Ordering Provider: ELLIE STONE Report Released Date/Time: Jun 13, 2024 03:30 PM Reporting Lab: [facility] [place] [address] Performing Lab: [facility] #[address] [place] [address] DIVISION CBC NEUTROPHILS [#/VOLUME] IN BLOOD BY AUTOMATED COUNT 5.20 10*3/u L 2.10 - 8.00 06/13 Specimen Type: BLOOD No comment entered. Ordering Provider: ELLIE STONE Report Released Date/Time: Jun 13, 2024 03:30 PM Reporting Lab: [facility] [place] [address] Performing Lab: [facility] [address] DIVISION CBC EOSINOPHILS [#/VOLUME] IN BLOOD BY AUTOMATED COUNT 0.13 10*3/u L 0.00 - 0.60 06/13 Specimen Type: BLOOD No comment entered. Ordering Provider: ELLIE STONE Report Released Date/Time: Jun 13, 2024 03:30 PM Reporting Lab: [facility] [place] [address] Performing Lab: [facility] [address] DIVISION CBC BASOPHILS [#/VOLUME] IN BLOOD BY AUTOMATED COUNT 0.02 10*3/u L 0.00 - 0.20 06/13 Specimen Type: BLOOD No comment entered. Ordering Provider: ELLIE STONE Report Released Date/Time: Jun 13, 2024 03:30 PM Reporting Lab: [facility] [place] [address] Performing Lab: [facility] #[address] [place] [address] DIVISION COMPREHEN SIVE METABOLIC PANEL CREATININE [MASS/VOLUM E] IN SERUM OR PLASMA 1.09 mg/dL 0.70 - 1.30 06/13 Specimen Type: PLASMA Comment: No hemolysis noted. Ordering Provider: ELLIE STONE Report Released Date/Time: Jun 13, 2024 03:30 PM Reporting Lab: [facility] [place] [address] Performing Lab: [facility] COMPREHEN SIVE METABOLIC PANEL UREA NITROGEN [MASS/VOLUM E] IN SERUM OR PLASMA 11.1 mg/dL 9.0 - 25.0 06/13 Specimen Type: PLASMA Comment: No hemolysis noted. Ordering Provider: ELLIE STONE Report Released Date/Time: Jun 13, 2024 03:30 PM Reporting Lab: [facility] [place] [address] Performing Lab: [facility] COMPREHEN SIVE METABOLIC PANEL GLUCOSE [MASS/VOLUM E] IN SERUM OR PLASMA 85 mg/dL 72 - 99 06/13 Specimen Type: PLASMA Comment: No hemolysis noted. Ordering Provider: ELLIE STONE Report Released Date/Time: Jun 13, 2024 03:30 PM Reporting Lab: [facility] [place] [address] Performing Lab: [facility] COMPREHEN SIVE METABOLIC PANEL SODIUM [MOLES/VOLU ME] IN SERUM OR PLASMA 135 meq/L 136 - 145 06/13 L Specimen Type: PLASMA Comment: No hemolysis noted. Ordering Provider: ELLIE STONE Report Released Date/Time: Jun 13, 2024 03:30 PM Reporting Lab: [facility] [place] [address] Performing Lab: [facility] [place] [id number] DIVISION COMPREHEN SIVE METABOLIC PANEL POTASSIUM [MOLES/VOLU ME] IN SERUM OR PLASMA 4.1 meq/L 3.5 - 5.0 06/13 Specimen Type: PLASMA Comment: No hemolysis noted. Ordering Provider: ELLIE STONE Report Released Date/Time: Jun 13, 2024 03:30 PM Reporting Lab: [facility] [place] [address] Performing Lab: [facility] DIVISION COMPREHEN SIVE METABOLIC PANEL CHLORIDE [MOLES/VOLU ME] IN SERUM OR PLASMA 100 meq/L 98 - 107 06/13 Specimen Type: PLASMA Comment: No hemolysis noted. Ordering Provider: ELLIE STONE Report Released Date/Time: Jun 13, 2024 03:30 PM Reporting Lab: [facility] [place] [address] Performing Lab: [facility] DIVISION COMPREHEN SIVE METABOLIC PANEL CARBON DIOXIDE, TOTAL [MOLES/VOLU ME] IN SERUM OR PLASMA 27 meq/L 22 - 31 06/13 Specimen Type: PLASMA Comment: No hemolysis noted. Ordering Provider: ELLIE STONE Report Released Date/Time: Jun 13, 2024 03:30 PM Reporting Lab: [facility] [place] [address] Performing Lab: [facility] DIVISION COMPREHEN SIVE METABOLIC PANEL CALCIUM [MASS/VOLUM E] IN SERUM OR PLASMA 8.9 mg/dL 8.4 - 10.4 06/13 Specimen Type: PLASMA Comment: No hemolysis noted. Ordering Provider: KODWANI,ELLIE A Report Released Date/Time: Jun 13, 2024 03:30 PM Reporting Lab: [facility] [place] [address] Performing Lab: [facility] DIVISION COMPREHEN SIVE METABOLIC PANEL PROTEIN [MASS/VOLUM E] IN SERUM OR PLASMA 6.7 g/dL 6.0 - 8.6 06/13 Specimen Type: PLASMA Comment: No hemolysis noted. Ordering Provider: ELLIE STONE Report Released Date/Time: Jun 13, 2024 03:30 PM Reporting Lab: [facility] [place] [address] Performing Lab: [facility] DIVISION COMPREHEN SIVE METABOLIC PANEL ALBUMIN [MASS/VOLUM E] IN SERUM OR PLASMA 3.9 g/dL 3.4 - 5.0 06/13 Specimen Type: PLASMA Comment: No hemolysis noted. Ordering Provider: ELLIE STONE Report Released Date/Time: Jun 13, 2024 03:30 PM Reporting Lab: [facility] [place] [address] Performing Lab: [facility] DIVISION COMPREHEN SIVE METABOLIC PANEL BILIRUBIN.T OTAL [MASS/VOLUM E] IN SERUM OR PLASMA 0.2 mg/dL 0.2 - 1.2 06/13 Specimen Type: PLASMA Comment: No hemolysis noted. Ordering Provider: ELLIE STONE Report Released Date/Time: Jun 13, 2024 03:30 PM Reporting Lab: [facility] [place] [address] Performing Lab: [facility] DIVISION COMPREHEN SIVE METABOLIC PANEL ALKALINE PHOSPHATASE [ENZYMATIC ACTIVITY/VO LUME] IN SERUM OR PLASMA 49 U/L 40 - 150 06/13 Specimen Type: PLASMA Comment: No hemolysis noted. Ordering Provider: ELLIE STONE Report Released Date/Time: Jun 13, 2024 03:30 PM Reporting Lab: [facility] [place] [address] Performing Lab: [facility] DIVISION COMPREHEN SIVE METABOLIC PANEL ASPARTATE AMINOTRANSF ERASE [ENZYMATIC ACTIVITY/VO LUME] IN SERUM OR PLASMA 20 U/L 5 - 34 06/13 Specimen Type: PLASMA Comment: No hemolysis noted. Ordering Provider: ELLIE STONE Report Released Date/Time: Jun 13, 2024 03:30 PM Reporting Lab: [facility] [place] [address] Performing Lab: [facility] DIVISION COMPREHEN SIVE METABOLIC PANEL ALANINE AMINOTRANSF ERASE [ENZYMATIC ACTIVITY/VO LUME] IN SERUM OR PLASMA 10 U/L 8 - 40 06/13 Specimen Type: PLASMA Comment: No hemolysis noted. Ordering Provider: ELLIE STONE Report Released Date/Time: Jun 13, 2024 03:30 PM Reporting Lab: [facility] [place] [address] Performing Lab: [facility] DIVISION COMPREHEN SIVE METABOLIC PANEL GLOMERULAR FILTRATION RATE/1.73 SQ M.PREDICTED [VOLUME RATE/AREA] IN SERUM, PLASMA OR BLOOD BY CREATININE- BASED FORMULA (CKD-EPI 2020) 70.34 60 06/13 Specimen Type: PLASMA Comment: No hemolysis noted. Ordering Provider: ELLIE STONE Report Released Date/Time: Jun 13, 2024 03:30 PM Reporting Lab: [facility] [place] [address] Performing Lab: [facility] DIVISION HGA1C HEMOGLOBIN A1C/HEMOGLO BIN.TOTAL IN BLOOD 5.6 4.0 - 6.0 06/13 Specimen Type: BLOOD No comment entered. Ordering Provider: ELLIE STONE Report Released Date/Time: Jun 13, 2024 03:24 PM Reporting Lab: [facility] [place] [address] Performing Lab: [facility] LIPID PANEL (STL) CHOLESTEROL [MASS/VOLUM E] IN SERUM OR PLASMA 97 mg/dL 0 - 200 06/13 Specimen Type: PLASMA Comment: No hemolysis noted. Ordering Provider: ELLIE STONE Report Released Date/Time: Jun 13, 2024 03:24 PM Reporting Lab: [facility] [place] [address] Performing Lab: [facility] LIPID PANEL (STL) TRIGLYCERID E [MASS/VOLUM E] IN SERUM OR PLASMA 143 mg/dL 0 - 150 06/13 Specimen Type: PLASMA Comment: No hemolysis noted. Ordering Provider: ELLIE STONE Report Released Date/Time: Jun 13, 2024 03:24 PM Reporting Lab: [facility] [place] [address] Performing Lab: [facility] [address] LIPID PANEL (STL) CHOLESTEROL IN LDL [MASS/VOLUM E] IN SERUM OR PLASMA BY CALCULATION 28 mg/dL 06/13 Specimen Type: PLASMA Comment: No hemolysis noted. Ordering Provider: ELLIE STONE Report Released Date/Time: Jun 13, 2024 03:24 PM Reporting Lab: [facility] [place] [address] Performing Lab: [facility] DIVISION LIPID PANEL (STL) CHOLESTEROL IN HDL [MASS/VOLUM E] IN SERUM OR PLASMA 40 mg/dL 40 06/13 Specimen Type: PLASMA Comment: No hemolysis noted. Ordering Provider: ELLIE STONE Report Released Date/Time: Jun 13, 2024 03:24 PM Reporting Lab: [facility] [place] [address] Performing Lab: [facility] DIVISION PROST. SPECIFIC AG.(PB-ST L) PROSTATE [...] Jun 13, 2024 03:24 PM Reporting Lab: [facility] [place] [address] Performing Lab: [facility] DIVISION TSH (MA-PB) THYROTROPIN [UNITS/VOLU ME] [...] Jun 13, 2024 03:24 PM Reporting Lab: [facility] [id number] Performing Lab: [facility] [id number] [facility] APTT APTT IN PLATELET POOR PLASMA BY COAGULATION ASSAY 29.8 s 26.7 - 39.9 04/18 Specimen Type: PLASMA No comment entered. Ordering Provider: MICHAEL SANCHEZ Report Released Date/Time: Apr 18, 2024 10:59 AM Reporting Lab: [address] [address] Performing Lab: [address] [id number] BRAIN NATRIURET IC PEPTIDE NATRIURETIC PEPTIDE B [MASS/VOLUM E] IN SERUM OR PLASMA 20.2 pg/mL 0 - 100 04/18 Specimen Type: PLASMA No comment entered. Ordering Provider: MICHAEL SANCHEZ Report Released Date/Time: Apr 18, 2024 10:59 AM Reporting Lab: [address] [address] Performing Lab: [address] [id number] [address] CBC LEUKOCYTES [#/VOLUME] IN BLOOD BY AUTOMATED COUNT 7.9 10*3/u L 3.6 - 11.2 04/18 Specimen Type: BLOOD No comment entered. Ordering Provider: MICHAEL SANCHEZ Report Released Date/Time: Apr 18, 2024 10:59 AM Reporting Lab: [address] [phone] Performing Lab: [address] [phone] [address] CBC ERYTHROCYTE S [#/VOLUME] IN BLOOD BY AUTOMATED COUNT 4.86 10*6/u L 4.10 - 5.70 04/18 Specimen Type: BLOOD No comment entered. Ordering Provider: MICHAEL SANCHEZ Report Released Date/Time: Apr 18, 2024 10:59 AM Reporting Lab: [place] [address] [facility] [phone] Performing Lab: [facility] [address] [place] [phone] [facility] CBC HEMOGLOBIN [MASS/VOLUM E] IN BLOOD 15.2 g/dL 13.1 - 16.8 04/18 Specimen Type: BLOOD No comment entered. Ordering Provider: MICHAEL SANCHEZ Report Released Date/Time: Apr 18, 2024 10:59 AM Reporting Lab: [place] [address] [facility] [address] Performing Lab: [place] [address] [facility] [phone] CBC HEMATOCRIT [VOLUME FRACTION] OF BLOOD 46.0 38.2 - 48.4 04/18 Specimen Type: BLOOD No comment entered. Ordering Provider: MICHAEL SANCHEZ Report Released Date/Time: Apr 18, 2024 10:59 AM Reporting Lab: [place] [address] [facility] [address] Performing Lab: [place] [address] [facility] [address] [facility] CBC MCV [ENTITIC VOLUME] BY AUTOMATED COUNT 94.7 fL 80.0 - 100.0 04/18 Specimen Type: BLOOD No comment entered. Ordering Provider: MICHAEL SANCHEZ Report Released Date/Time: Apr 18, 2024 10:59 AM Reporting Lab: [place] [address] [facility] [address] Performing Lab: [address] [address] [facility] CBC MCH [ENTITIC MASS] BY AUTOMATED COUNT 31.3 pg 27.0 - 34.0 04/18 Specimen Type: BLOOD No comment entered. Ordering Provider: MICHAEL SANCHEZ Report Released Date/Time: Apr 18, 2024 10:59 AM Reporting Lab: [place] [address] [facility] [address] Performing Lab: [place] [address] [facility] [address] [facility] CBC MCHC [MASS/VOLUM E] BY AUTOMATED COUNT 33.0 g/dL 33.0 - 36.0 04/18 Specimen Type: BLOOD No comment entered. Ordering Provider: MICHAEL SANCHEZ Report Released Date/Time: Apr 18, 2024 10:59 AM Reporting Lab: [place] [address] [facility] [address] Performing Lab: [address] [address] [facility] CBC PLATELETS [#/VOLUME] IN BLOOD BY AUTOMATED COUNT 251 10*3/u L 150 - 400 04/18 Specimen Type: BLOOD No comment entered. Ordering Provider: MICHAEL SANCHEZ Report Released Date/Time: Apr 18, 2024 10:59 AM Reporting Lab: [place] [address] [facility] [address] Performing Lab: [address] [address] [facility] CBC PLATELET MEAN VOLUME [ENTITIC VOLUME] IN BLOOD BY AUTOMATED COUNT 10.4 fL 7.5 - 11.2 04/18 Specimen Type: BLOOD No comment entered. Ordering Provider: MICHAEL SANCHEZ Report Released Date/Time: Apr 18, 2024 10:59 AM Reporting Lab: [place] [address] [facility] [address] Performing Lab: [address] [address] [facility] CBC ERYTHROCYTE DISTRIBUTIO N WIDTH [RATIO] BY AUTOMATED COUNT 13.1 11.8 - 15.1 04/18 Specimen Type: BLOOD No comment entered. Ordering Provider: MICHAEL SANCHEZ Report Released Date/Time: Apr 18, 2024 10:59 AM Reporting Lab: [facility] [address] [facility] [address] Performing Lab: [facility] [address] [facility] [address] [facility] CBC LYMPHOCYTES /100 LEUKOCYTES IN BLOOD BY AUTOMATED COUNT 25 04/18 Specimen Type: BLOOD No comment entered. Ordering Provider: MICHAEL SANCHEZ Report Released Date/Time: Apr 18, 2024 10:59 AM Reporting Lab: [facility] [address] [facility] [address] Performing Lab: [facility] [address] [facility] [address] [facility] CBC MONOCYTES/1 00 LEUKOCYTES IN BLOOD BY AUTOMATED COUNT 8 04/18 Specimen Type: BLOOD No comment entered. Ordering Provider: MICHAEL SANCHEZ Report Released Date/Time: Apr 18, 2024 10:59 AM Reporting Lab: [facility] [address] [facility] [address] Performing Lab: [facility] [address] [facility] [address] [facility] CBC NEUTROPHILS /100 LEUKOCYTES IN BLOOD BY AUTOMATED COUNT 64 04/18 Specimen Type: BLOOD No comment entered. Ordering Provider: MICHAEL SANCHEZ Report Released Date/Time: Apr 18, 2024 10:59 AM Reporting Lab: [facility] [address] [facility] [address] Performing Lab: [facility] [address] [facility] [address] [facility] CBC EOSINOPHILS /100 LEUKOCYTES IN BLOOD BY AUTOMATED COUNT 2 04/18 Specimen Type: BLOOD No comment entered. Ordering Provider: MICHAEL SANCHEZ Report Released Date/Time: Apr 18, 2024 10:59 AM Reporting Lab: [facility] [address] [facility] [address] Performing Lab: [facility] [address] [facility] [address] [facility] CBC BASOPHILS/1 00 LEUKOCYTES IN BLOOD BY AUTOMATED COUNT 1 04/18 Specimen Type: BLOOD No comment entered. Ordering Provider: MICHAEL SANCHEZ Report Released Date/Time: Apr 18, 2024 10:59 AM Reporting Lab: [address] [address] Performing Lab: [place] [address] [facility] [address] [facility] CBC LYMPHOCYTES [#/VOLUME] IN BLOOD BY AUTOMATED COUNT 1.99 10*3/u L 0.77 - 4.50 04/18 Specimen Type: BLOOD No comment entered. Ordering Provider: MICHAEL SANCHEZ Report Released Date/Time: Apr 18, 2024 10:59 AM Reporting Lab: [address] [address] Performing Lab: [place] [address] [facility] [address] [facility] CBC MONOCYTES [#/VOLUME] IN BLOOD BY AUTOMATED COUNT 0.65 10*3/u L 0.19 - 0.80 04/18 Specimen Type: BLOOD No comment entered. Ordering Provider: MICHAEL SANCHEZ Report Released Date/Time: Apr 18, 2024 10:59 AM Reporting Lab: [address] [address] Performing Lab: [address] [address] [facility] CBC NEUTROPHILS [#/VOLUME] IN BLOOD BY AUTOMATED COUNT 5.07 10*3/u L 2.10 - 8.00 04/18 Specimen Type: BLOOD No comment entered. Ordering Provider: MICHAEL SANCHEZ Report Released Date/Time: Apr 18, 2024 10:59 AM Reporting Lab: [address] [address] Performing Lab: [facility] [address] [facility] [address] [facility] CBC EOSINOPHILS [#/VOLUME] IN BLOOD BY AUTOMATED COUNT 0.13 10*3/u L 0.00 - 0.60 04/18 Specimen Type: BLOOD No comment entered. Ordering Provider: MICHAEL SANCHEZ Report Released Date/Time: Apr 18, 2024 10:59 AM Reporting Lab: [address] [address] Performing Lab: [address] [address] [facility] CBC BASOPHILS [#/VOLUME] IN BLOOD BY AUTOMATED COUNT 0.04 10*3/u L 0.00 - 0.20 04/18 Specimen Type: BLOOD No comment entered. Ordering Provider: MICHAEL SANCHEZ Report Released Date/Time: Apr 18, 2024 10:59 AM Reporting Lab: [address] [address] Performing Lab: [address] [address] [facility] PT/INR NEW ([facility]) PROTHROMBIN TIME (PT) 10.7 s 9.4 - 12.5 04/18 Specimen Type: PLASMA No comment entered. Ordering Provider: MICHAEL SANCHEZ Report Released Date/Time: Apr 18, 2024 10:59 AM Reporting Lab: [address] [address] Performing Lab: [address] [address] [facility] PT/INR NEW ([facility]) INR IN PLATELET POOR PLASMA BY COAGULATION ASSAY 1.0 {INR} 04/18 Specimen Type: PLASMA No comment entered. Ordering Provider: MICHAEL SANCHEZ Report Released Date/Time: Apr 18, 2024 10:59 AM Reporting Lab: [address] [place] [address] Performing Lab: [facility] [address] [facility] [address] [facility] Vital Signs Combined list of inpatient and outpatient Vital Signs from Department of Defense and Veterans Affairs, ranging from 12 months to all on record, depending upon the facility. Vital Sign Value Date Comments Source SYSTOLIC BLOOD PRESSURE 105 06/13/2024 15:05:04 [facility] DIASTOLIC BLOOD PRESSURE 65 06/13/2024 15:05:04 [facility] PULSE OXIMETRY 96 06/13/2024 15:05:04 [facility] WEIGHT 129 06/13/2024 15:05:04 [facility] BMI 20 kg/m2 06/13/2024 15:05:04 [facility] PAIN 0 06/13/2024 15:05:04 [facility] TEMPERATURE 97.4 06/13/2024 15:05:04 [facility] PULSE 80 06/13/2024 15:05:04 [facility] RESPIRATION 16 06/13/2024 15:05:04 [facility] SYSTOLIC BLOOD PRESSURE 126 05/03/2024 10:05:01 [facility] DIASTOLIC BLOOD PRESSURE 76 05/03/2024 10:05:01 [facility] PULSE OXIMETRY 98 05/03/2024 10:05:01 [facility] PAIN 9 05/03/2024 10:05:01 [facility] PULSE 62 05/03/2024 10:05:01 [facility] RESPIRATION 17 05/03/2024 10:05:01 [facility] SYSTOLIC BLOOD PRESSURE 147 04/18/2024 11:13:00 [facility] DIASTOLIC BLOOD PRESSURE 68 04/18/2024 11:13:00 [facility] PAIN 0 04/18/2024 11:13:00 [facility] TEMPERATURE 98.8 04/18/2024 11:13:00 [facility] PULSE 64 04/18/2024 11:13:00 [facility] RESPIRATION 16 04/18/2024 11:13:00 [facility] Encounters Combined list of: 1) Encounters from Department of [facility] Affairs facilities going backup to the last 18 months, not all [place] inpatient encounters are included; 2) Encounters from the Department of [facility] facilities going backup to 280 months. 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 Outpatient Encounter [id number] 09/22 [facility] Outpatient Encounter [id number] Diagnos is: ICD-10- CM Z12.2 Encntr screen for maligna nt neoplas m of respira tory organs TARYoselyn CIFUENTES JR 10/26 [facility] Outpatient Encounter [id number] LUZMA SHAIKH 11/01 [facility] Outpatient Encounter [id number] MORGAN OWENS Sumanth 11/05 [facility] Outpatient Encounter [id number] Diagnos is: ICD-10- CM Z12.2 Encntr screen for maligna nt neoplas m of respira tory organs Yoselyn NICK JR 01/12 [facility] Outpatient Encounter [id number] 01/26 [facility] Outpatient Encounter [id number] 02/09 [facility] Outpatient Encounter [id number] Diagnos is: ICD-10- CM Z12.2 Encntr screen for maligna nt neoplas m of respira tory organs Yoselyn NICK JR 02/16 [facility] Outpatient Encounter [id number] 03/09 [facility] Outpatient Encounter [id number] Diagnos is: ICD-10- CM Z12.2 Encntr screen for maligna nt neoplas m of respira tory organs Yoselyn NICK JR 03/17 [facility] Outpatient Encounter [id number] CALLY HIGH RET 04/18 [facility] Outpatient Encounter [id number] 04/18 [facility] Outpatient Encounter [id number] 04/18 [facility] Outpatient Encounter [id number] MUDALLAL,O MAR 04/18 [facility] EMERGENCY DEPT VISIT MOD MDM [id number] Diagnos is: ICD-10- CM L29.9 Pruritu s, unspeci fied MUDALLAL,O MAR 04/18 [facility] Outpatient Encounter [id number] 04/18 [facility] Outpatient Encounter [id number] 04/18 [facility] Outpatient Encounter [id number] MUDALLAL,O MAR 04/18 [facility] Outpatient Encounter [id number] ANJALI GOMEZ 04/21 [facility] Outpatient Encounter [id number] Diagnos is: ICD-10- CM L29.9 Pruritu s, unspeci fied WHEELER,JEFF S 04/21 [facility] [id number] Diagnos is: ICD-10- CM R21 Rash and other nonspec ific skin eruptio n MUDALLAL,O MAR 04/21 [facility] Outpatient Encounter [id number] 04/28 [facility] OFFICE O/P EST MOD 30 MIN [id number] Diagnos is: ICD-10- CM R21 Rash and other nonspec ific skin eruptio n KARENPRADEEP QUIROGAA R 05/03 [facility] Outpatient Encounter [id number] 05/05 [facility] OFFICE O/P EST MOD 30 MIN [id number] Diagnos is: ICD-10- CM 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 , unspeci fied BERTHA, SELF 06/13 [facility] Outpatient Encounter [id number] 06/14 [facility] Outpatient Encounter [id number] BERTHA SELF 06/15 [facility] Outpatient Encounter [id number] 06/15 [facility] Outpatient Encounter [id number] 06/16 [facility] Outpatient Encounter [id number] OSVALDO AGUIRREMATTHEW D 07/19 [facility] Outpatient Encounter [id number] OSVALDO AGUIRRE JOANIE D 07/29 [facility] Outpatient Encounter [id number] OSVALDO AGUIRREMATTHEW D 08/22 [facility] Outpatient Encounter [id number] OSVALDO AGUIRREMATTHEW D 08/24 [facility] Social History Combined list of available smoking, tobacco, and other social history from Department of Defense and Veterans Affairs facilities. Social History Type Response Date Comment [facility] e Tobacco smoking status NHIS VA-TOBACCO USE EVERY DAY CIGARETTES 06/13/2024 [facility] History of tobacco use [place]-TO[place]ACCO NEVER USED OTHER TYPE 06/13/2024 [facility] History of tobacco use VA-TOBACCO USER EVERY DAY 04/09/2023 [facility] History of tobacco use VA-TOBACCO USER EVERY DAY 03/04/2022 [facility] History of tobacco use [place]-TOBACCO USE WI 30 MIN OF WAKEUP 02/14/2021 [facility] History of tobacco use VA-TOBACCO USE [employer] NO 12/05/2019 [facility] History of tobacco use TOBACCO USER OFFERED MEDS 08/03/2017 [facility] History of tobacco use CURRENT TOBACCO USER 03/26/2005 [facility] History of tobacco use CURRENT TOBACCO USER 09/23/2004 [facility]
[2024-10-04 14:51] LABS: NT Pro B Type Natriuretic Pept 170 pg/mL (19.9-100)
--- NOTE | 2024-10-04 15:42 | ECG_ITS ---
Test Date: 2024-10-04 15:54:16 Measurements Intervals [place] Rate: 57 P: 38 [place]: 184 QRS: 55 QRSD: 89 T: 0 QT: 426 QTc: 415 Interpretive Statements SINUS BRADYCARDIA LOW QRS VOLTAGE IN EXTREMITY LEADS [QRS DEFLECTION < 0.5 mV IN LIMB LEADS] Compared to ECG 10/04/2024 12:06:21 Sinus rhythm no longer present Ventricular premature complex(es) no longer present Electronically Signed On 10-05-2024 16:30:38 CDT by Homero Padgett M.D.
[2024-10-04 15:50] VITALS: O2SAT 98
[2024-10-04 16:31] LABS: Troponin I < 0.012 ng/mL (0.000-0.034)
[2024-10-04 16:34] LABS: Thyroid Stimulating Hormone Reflex > 100.000 uIU/mL (0.465-4.68)
[2024-10-04 17:03] LABS: Free T4 Free Thyroxine Reflex < 0.07 ng/dL (0.78-2.19)
[2024-10-04] MEDS: AMOXICILLIN/CLAVULANATE K 875-125 MG TAB 1 TABLET PO (18:06)
[2024-10-04] MEDS: AZITHROMYCIN 250 MG TABLET 500 MG PO (18:06)
[2024-10-04 18:15] VITALS: BP 161/90; PULSE 67; RESP 18; TEMP 36.4; O2SAT 98
== END 2024-10-04 18:17 | disposition home or self-care (01) ==
PROVIDERS: Emergency Medicine; Physician Assistant; Emergency Provider Emergency Medicine
DX: J18.9 Pneumonia, unspecified organism (principal); R07.81 Pleurodynia; N40.0 Benign prostatic hyperplasia without lower urinary tract symptoms; E03.9 Hypothyroidism, unspecified; F17.210 Nicotine dependence, cigarettes, uncomplicated; Z79.899 Other long term (current) drug therapy; I49.3 Ventricular premature depolarization; R00.1 Bradycardia, unspecified; R06.02 Shortness of breath
CPT/HCPCS: 36415; 70450; 71046; 71275; 80053; 83690; 83880; 84439; 84443; 84484; 85025; 85610; 85730; 93005; 99284; A9270; Q9967